=== PATIENT | male | born 1965 | race Caucasian/White ===

== ENCOUNTER 2020-10-05 09:24 | Outpatient (REF) | payer MEDICARE, SELFPAY ==
--- NOTE | ~2020-10-05 | XR_ITS ---
EXAMINATION: XR KNEE, LEFT CLINICAL INFORMATION: Unspecified injury of left lower leg COMPARISON: None TECHNIQUE: Four views of the left knee. FINDINGS: Medial and lateral compartment joint spaces are maintained. There is prepatellar soft tissue swelling, most likely a hematoma in the setting of trauma although bursitis could give this appearance as well. No definite joint effusion. No fracture or dislocation seen. There is smooth asymmetric cortical thickening of the proximal tibia. This has nonaggressive features and could represent a healed/ossified nonossifying fibroma. XR/XR knee LT 4V IMPRESSION: Prepatellar soft tissue swelling, most likely a hematoma although bursitis could give this appearance. No acute osseous abnormality.
== END 2020-10-05 09:25 | disposition home or self-care (01) ==
LOC: HO.HMGCX 09:24
PROVIDERS: PCP Internal Medicine; Visit Provider Nurse Practitioner Family
DX: L03.116 Cellulitis of left lower limb (principal); S89.90XA Unspecified injury of unspecified lower leg, initial encounter
CPT/HCPCS: 73564; 87071; 87077; 87186; 87205

== ENCOUNTER 2021-09-04 07:41 | Outpatient (REF) | payer MEDICARE, SELFPAY ==
[2021-09-04 12:13] LABS: Prostate Specific Antigen 0.52 ng/mL (<0.05-4.0)
[2021-09-04 12:17] LABS: Alanine Aminotransferase 21 U/L (0-40); Alkaline Phosphatase 90 U/L (39-117); Anion Gap 14 (12-20); Aspartate Amino Transferase 23 U/L (5-37); Bilirubin Total 0.6 mg/dL (0.0-1.0); Blood Urea Nitrogen 13 mg/dL (9-16); Calcium 9.2 mg/dL (8.4-10.2); Carbon Dioxide 26 mmol/L (22-29); Chloride 107 mmol/L (96-108); Cholesterol 261 mg/dL; Estimated Glomerular Filt Rate > 60; Glucose Fasting 91 mg/dL (60-99); HDL Cholesterol 29 mg/dL; LDL Cholesterol Calculated 188 mg/dl; Potassium 4.4 mmol/L (3.3-5.1); Sodium 143 mmol/L (135-145); Total Protein 7.4 g/dL (6.5-8.0); Triglycerides 223 mg/dL
== END 2021-09-04 07:42 | disposition home or self-care (01) ==
LOC: HO.HMGCLDS 07:41
PROVIDERS: Nurse Practitioner Family; Visit Provider Internal Medicine
DX: Z12.5 Encounter for screening for malignant neoplasm of prostate (principal); Z13.1 Encounter for screening for diabetes mellitus; Z13.220 Encounter for screening for lipoid disorders
CPT/HCPCS: 36415; 80053; 80061; 84153

== ENCOUNTER → 2022-03-13 13:24 | Outpatient (BNVA) | payer MEDICARE, SELFPAY | PROVIDERS: PCP Internal Medicine | DX: R35.0 Frequency of micturition (principal) | CPT/HCPCS: 51798; 99202 ==

== ENCOUNTER 2022-05-13 08:45 | Outpatient (REF) | payer MEDICARE, SELFPAY ==
[2022-05-13 11:27] LABS: MANUAL DIFF FLAG NO
[2022-05-13 11:29] LABS: Basophils Absolute Auto 0.1 X10*3/uL (0.0-0.2); Basophils Percent Auto 0.6 % (0-2); Eosinophils Absolute Auto 0.2 X10*3/uL (0.0-0.4); Eosinophils Percent Auto 3.1 % (0-4); Hematocrit 41.2 % (42.0-52.0); Hemoglobin 14.1 g/dl (14.0-18.0); Imm Gran Abs Auto 0.03 X10*3/uL (0.00-0.03); Imm Gran Pct Auto 0.4 % (0.0-0.4); Lymphocytes Absolute Auto 2.6 X10*3/uL (1.2-4.9); Lymphocytes Percent Auto 33.5 % (20-40); Mean Corpuscular HGB Conc 34.2 g/dl (31.0-36.0); Mean Corpuscular Hemoglobin 29.6 pg (27.0-33.0); Mean Corpuscular Volume 86.4 fL (80.0-98.0); Mean Platelet Volume 11.2 fL (9.4-12.4); Monocytes Absolute Auto 0.6 X10*3/uL (0.1-1.2); Monocytes Percent Auto 7.9 % (2-11); Neutrophils Absolute Auto 4.3 x10*3/uL (2.0-8.3); Neutrophils Percent Auto 54.5 % (45-73); Platelet Count 256 X10*3/uL (160-400); Red Blood Count 4.77 X10*6/uL (4.60-5.80); Red Cell Distribution Width 13.5 % (11.0-16.0); White Blood Count 7.9 X10*3/uL (4.8-10.8)
[2022-05-13 11:45] LABS: Alanine Aminotransferase 22 U/L (0-40); Albumin Level 4.3 g/dL (3.5-5.0); Alkaline Phosphatase 81 U/L (39-117); Anion Gap 15 (12-20); Aspartate Amino Transferase 23 U/L (5-37); Bilirubin Total 0.7 mg/dL (0.0-1.0); Blood Urea Nitrogen 11 mg/dL (9-16); Calcium 9.1 mg/dL (8.4-10.2); Carbon Dioxide 25 mmol/L (22-29); Chloride 104 mmol/L (96-108); Cholesterol 260 mg/dL; Estimated Glomerular Filt Rate > 60; Glucose Fasting 95 mg/dL (60-99); HDL Cholesterol 37 mg/dL; LDL Cholesterol Calculated 176 mg/dl; Potassium 4.2 mmol/L (3.3-5.1); Sodium 140 mmol/L (135-145); Total Protein 7.4 g/dL (6.5-8.0); Triglycerides 239 mg/dL
[2022-05-13 12:06] LABS: TSH reflex Free T4 0.66 uIU/mL (0.32-4.0)
== END 2022-05-13 08:46 | disposition home or self-care (01) ==
LOC: HO.HMGCLDS 08:45
PROVIDERS: PCP Internal Medicine; Visit Provider Nurse Practitioner Family
DX: F41.9 Anxiety disorder, unspecified (principal); I10 Essential (primary) hypertension; E78.00 Pure hypercholesterolemia, unspecified; F32.89 Other specified depressive episodes
CPT/HCPCS: 36415; 80053; 80061; 84443; 85025

== ENCOUNTER 2022-08-13 10:32 | Outpatient (REF) | payer MEDICARE, SELFPAY ==
[2022-08-13 12:41] LABS: Alanine Aminotransferase 47 U/L (0-40); Albumin Level 4.4 g/dL (3.5-5.0); Alkaline Phosphatase 91 U/L (39-117); Anion Gap 11 (12-20); Aspartate Amino Transferase 27 U/L (5-37); Bilirubin Total 0.6 mg/dL (0.0-1.0); Blood Urea Nitrogen 13 mg/dL (9-16); Calcium 9.3 mg/dL (8.4-10.2); Carbon Dioxide 28 mmol/L (22-29); Chloride 104 mmol/L (96-108); Cholesterol 175 mg/dL; Estimated Glomerular Filt Rate > 60; Glucose Fasting 85 mg/dL (60-99); HDL Cholesterol 38 mg/dL; LDL Cholesterol Calculated 112 mg/dl; Potassium 4.3 mmol/L (3.3-5.1); Sodium 139 mmol/L (135-145); TSH reflex Free T4 0.86 uIU/mL (0.32-4.0); Total Protein 7.3 g/dL (6.5-8.0); Triglycerides 125 mg/dL; Vitamin D 25-OH Total 11.5 ng/mL (>30)
[2022-08-19 20:54] LABS: Testosterone, Free 54.5 pg/mL (35.0-155.0); Testosterone, Total 478 ng/dL (250-1100)
== END 2022-08-13 10:33 | disposition home or self-care (01) ==
LOC: HO.HMGCLDS 10:32
PROVIDERS: PCP Internal Medicine; Visit Provider Internal Medicine
DX: R53.83 Other fatigue (principal); R79.89 Other specified abnormal findings of blood chemistry; E55.9 Vitamin D deficiency, unspecified; E78.00 Pure hypercholesterolemia, unspecified
CPT/HCPCS: 36415; 80053; 80061; 82306; 84402; 84403; 84443

== ENCOUNTER 2022-09-09 09:36 | Outpatient (REF) | payer MEDICARE, SELFPAY ==
--- NOTE | ~2022-09-09 | CT_ITS ---
EXAMINATION: CT HEAD WITHOUT CONTRAST CLINICAL INFORMATION: Dizziness and giddiness. COMPARISON: CT head from 11/30/2013. TECHNIQUE: Contiguous axial imaging was performed from the skull base to vertex without intravenous administration of contrast. This CT examination was performed using dose optimization techniques as appropriate, variously including the following: *Automated exposure control. *Adjustment of mA and/or kV according to patient size (this includes techniques or standardized protocols for targeted exams where dose is matched to indication/reason for exam; i.e. extremities or head). *Use of iterative reconstruction technique. DLP: 792 mGy-cm FINDINGS: There is no evidence of acute intracranial hemorrhage or edematous territorial infarction. Rios-white matter differentiation is preserved. There is no abnormal attenuation within the brain parenchyma. The ventricles are normal in morphology and size. No evidence for obstructive hydrocephalus. No abnormal mass effect or midline shift. The cerebellar tonsils are positioned at the level the foramen magnum. No extra-axial fluid collections. No acute soft tissue or osseous abnormalities. Persistent metopic suture. The mastoid air cells and visualized paranasal sinuses are clear. CT/CT head/brain wo IV con IMPRESSION: No evidence of acute intracranial hemorrhage or edematous territorial infarction.
== END 2022-09-09 09:37 | disposition home or self-care (01) ==
LOC: HO.CT 09:36
PROVIDERS: PCP Internal Medicine; Visit Provider Internal Medicine
DX: G43.909 Migraine, unspecified, not intractable, without status migrainosus (principal); R42 Dizziness and giddiness
CPT/HCPCS: 70450

== ENCOUNTER → 2022-09-12 11:32 | Outpatient (BNVA) | payer MEDICARE, SELFPAY | PROVIDERS: PCP Internal Medicine; Visit Provider Nurse Practitioner Family | DX: N40.1 Benign prostatic hyperplasia with lower urinary tract symptoms (principal); R35.0 Frequency of micturition; N13.8 Other obstructive and reflux uropathy; I10 Essential (primary) hypertension; E78.00 Pure hypercholesterolemia, unspecified; E55.9 Vitamin D deficiency, unspecified; Z79.899 Other long term (current) drug therapy | CPT/HCPCS: 51798; 99212 ==

== ENCOUNTER → 2022-10-30 13:27 | Outpatient (BNVA) | payer MEDICARE, SELFPAY | PROVIDERS: PCP Internal Medicine; Visit Provider Nurse Practitioner Family | DX: G43.909 Migraine, unspecified, not intractable, without status migrainosus (principal); R42 Dizziness and giddiness; R55 Syncope and collapse | CPT/HCPCS: 99202 ==

== ENCOUNTER 2022-11-17 09:25 | Outpatient (REF) | payer MEDICARE, SELFPAY ==
[2022-11-17 11:15] LABS: MANUAL DIFF FLAG NO
[2022-11-17 11:50] LABS: Appearance Urine Clear; Color Urine Yellow; Glucose Urine UA Negative (Negative); Leukocyte Esterase Urine Negative (Negative); Nitrite Urine Negative (Negative); PH 7.5 (5.0-9.0); Specific Gravity - Urine 1.015 (1.005-1.025); Urine Blood Negative (Negative); Urine Ketones Negative (Negative); Urine Protein Negative (Neg-Trace)
[2022-11-17 11:55] LABS: Basophils Absolute Auto 0.1 X10*3/uL (0.0-0.2); Basophils Percent Auto 0.9 % (0-2); Eosinophils Absolute Auto 0.3 X10*3/uL (0.0-0.4); Hematocrit 43.3 % (42.0-52.0); Hemoglobin 14.5 g/dl (14.0-18.0); Imm Gran Abs Auto 0.03 X10*3/uL (0.00-0.03); Imm Gran Pct Auto 0.4 % (0.0-0.4); Lymphocytes Absolute Auto 2.3 X10*3/uL (1.2-4.9); Lymphocytes Percent Auto 28.8 % (20-40); Mean Corpuscular HGB Conc 33.5 g/dl (31.0-36.0); Mean Corpuscular Hemoglobin 29.8 pg (27.0-33.0); Mean Corpuscular Volume 89.1 fL (80.0-98.0); Mean Platelet Volume 11.9 fL (9.4-12.4); Monocytes Absolute Auto 0.7 X10*3/uL (0.1-1.2); Monocytes Percent Auto 8.8 % (2-11); Neutrophils Absolute Auto 4.6 x10*3/uL (2.0-8.3); Neutrophils Percent Auto 57.1 % (45-73); Platelet Count 235 X10*3/uL (160-400); Red Blood Count 4.86 X10*6/uL (4.60-5.80); Red Cell Distribution Width 13.4 % (11.0-16.0); White Blood Count 8.1 X10*3/uL (4.8-10.8)
[2022-11-17 12:19] LABS: Alanine Aminotransferase 42 U/L (0-40); Albumin Level 4.3 g/dL (3.5-5.0); Alkaline Phosphatase 80 U/L (39-117); Anion Gap 10 (12-20); Aspartate Amino Transferase 26 U/L (5-37); Bilirubin Total 0.8 mg/dL (0.0-1.0); Blood Urea Nitrogen 14 mg/dL (9-16); Calcium 9.3 mg/dL (8.4-10.2); Carbon Dioxide 29 mmol/L (22-29); Chloride 106 mmol/L (96-108); Cholesterol 161 mg/dL; Estimated Glomerular Filt Rate > 60; Glucose Fasting 91 mg/dL (60-99); HDL Cholesterol 34 mg/dL; LDL Cholesterol Calculated 100 mg/dl; Potassium 4.2 mmol/L (3.3-5.1); Sodium 141 mmol/L (135-145); Total Protein 7.1 g/dL (6.5-8.0); Triglycerides 139 mg/dL
[2022-11-17 12:22] LABS: TSH reflex Free T4 0.63 uIU/mL (0.32-4.0)
[2022-11-17 12:47] LABS: Erythrocyte Sedimentation Rate 8 MM/HR (0-15)
== END 2022-11-17 09:26 | disposition home or self-care (01) ==
LOC: HO.HMGCLDS 09:25
PROVIDERS: PCP Internal Medicine; Visit Provider Internal Medicine
DX: E78.00 Pure hypercholesterolemia, unspecified (principal); E55.9 Vitamin D deficiency, unspecified; R51.9 Headache, unspecified; R30.0 Dysuria; I10 Essential (primary) hypertension
CPT/HCPCS: 36415; 80053; 80061; 81003; 82306; 84443; 85025; 85652

== ENCOUNTER 2022-12-10 09:52 | Outpatient (REF) | payer MEDICARE, SELFPAY ==
--- NOTE | ~2022-12-10 | US_ITS ---
EXAMINATION: US EXTRACRANIAL CAROTID DUPLEX, BILATERAL CLINICAL INFORMATION: Dizziness. COMPARISON: None available. TECHNIQUE: Real-time ultrasound and Doppler techniques (integrating B-mode 2-D vascular images, Doppler spectral analysis and color-flow Doppler imaging) were utilized to interrogate the extracranial carotid arteries, the vertebral arteries and proximal subclavian arteries bilaterally. The degree of stenosis is determined by criteria similar to NASCET. FINDINGS: Right Side: 1. There is no atherosclerotic plaque seen in the bifurcation/proximal ICA region. 2. The common carotid artery PSV proximally is 142 cm/s and distally 89 cm/s. 3. The proximal internal carotid artery velocities are 78 cm/s systolic and 17 cm/s diastolic. 4. The proximal external carotid artery PSV is 103 cm/s. 5. The vertebral artery shows antegrade flow. 6. The subclavian artery waveforms are normal. Left Side: 1. There is mild atherosclerotic plaque seen in the bifurcation/proximal ICA region. 2. The common carotid artery PSV proximally is 85 cm/s and distally 87 cm/s. 3. The proximal internal carotid artery velocities are 104 cm/s systolic and 29 cm/s diastolic. 4. The proximal external carotid artery PSV is 112 cm/s. 5. The vertebral artery shows antegrade flow. 6. The subclavian artery waveforms are normal. US/US carotid duplex BI IMPRESSION: 1. RIGHT: Normal right internal carotid artery without atherosclerotic plaque or hemodynamically significant stenosis. 2. LEFT: Minimal, non-hemodynamically significant stenosis of the proximal left internal carotid artery corresponding to a 0-49% stenosis by velocity criteria.
== END 2022-12-10 09:53 | disposition home or self-care (01) ==
LOC: HO.US 09:52
PROVIDERS: PCP Internal Medicine; Visit Provider Nurse Practitioner Family
DX: R55 Syncope and collapse (principal); R42 Dizziness and giddiness; I10 Essential (primary) hypertension; E78.00 Pure hypercholesterolemia, unspecified
CPT/HCPCS: 93005; 93880; 99202

== ENCOUNTER → 2022-12-24 09:44 | Outpatient (REF) | payer MEDICARE, SELFPAY ==
--- NOTE | 2022-12-24 09:47 | CA_ITS ---
Transthoracic Echocardiogram Patient (Last, First, Middle): Moe Gomse P Gender: Male Date of : 1965 Age: 57 Procedure Date: 12/24/2022 Procedure Type: Transthoracic Echocardiogram Location: OP Height: 182.88 cm Weight: 104.33 kg BSA: 2.26 m2 Heart Rate: bpm BP: 128 / 80 mmHg Statistics Tutor: Referring MD: Phoenix Emerson MD Symptoms: R55 - Syncope and collapse Study Quality: Fair ECG Rhythm: Sinus Conclusions: - The left ventricular systolic function is normal. The calculated ejection fraction is 63% by biplane method. - No obvious valvular pathology seen on this study. Findings Left Ventricle Normal left ventricular cavity size. There is normal left ventricular wall thickness. The left ventricular systolic function is normal. The calculated ejection fraction is 63% by biplane method. There is no evidence of regional wall motion abnormalities. Diastolic function is normal for age. LV peak GLS -18.7%. Right Ventricle Normal right ventricular cavity size and systolic function. Atria Both atria are normal in size. Aortic Valve There is a normal trileaflet aortic valve. There is no aortic valve stenosis. There is no aortic valve regurgitation. Mitral Valve The mitral valve appears normal. There is trace mitral valve regurgitation. There is no mitral valve stenosis. Pulmonic Valve The pulmonic valve is likely normal. Tricuspid Valve Normal tricuspid valve structure. There is mild tricuspid valve regurgitation. There is no evidence of pulmonary hypertension. Great Vessels The asc aorta is normal in size. Venous The inferior vena cava is normal in size and collapses greater than 50% with inspiration. Pericardium/Pleural There is no evidence of pericardial effusion. Prior Study Comparison No prior study available for comparison. Recommendations, Care & Conclusions No obvious valvular pathology seen on this study. Measurements 2D Linear Measurements IVSd: 1.01 0.6-0.9/0.6-1.0 cm LVIDd: 4.76 3.9-5.3/4.2-5.9 cm LVIDd Index: 2.11 2.4-3.2/2.2-3.1 cm/m2 LVIDs: 3.15 2.0-3.6 cm LVPWd: 1.04 0.7-1.1 cm Ao Root: 3.50 2.1-3.5 cm LA Diam: 4.30 2.7-3.8/3.0-4.0 cm LAIDs Index: 1.90 1.5-2.3 cm/m2 LV Mass: 216.29 67-162/88-224 g LV Mass Index: 95.70 43-95/49-115 g/m2 LVOT Diam: 2.20 3.0+(-)1.3 cm 2D Systolic Function EF 4C: 57.40 >55% EF 2C: 66.90 >55% EF BiP: 62.50 >55% Mitral Valve MV Pk E: 0.78 MV PK A: 0.58 MV Decel Time: 277.00 E/A: 1.40 E'Lateral: 12.00 E'Medial: 9.68 E/E' Med: 8.00 E/E' Lat: 6.50 PHT: 81.00 MVA PHT: 2.72 Decel [place]: 2.81 Aortic Valve AoV Pk Alexis: 1.36 AoV Mn Alexis: 0.85 AoV VTI: 0.34 AoV Pk Grad: 7.00 Aov Mn Grad: 4.00 SIMA Cont.VTI: 2.95 LVOT LVOT Pk Alexis: 1.06 LVOT Mn Alexis: 0.68 LVOT VTI: 0.26 LVOT Pk Grad: 4.00 LVOT Mn Grad: 2.00 LVOT Diam: 2.20 LVOT Area: 3.80 Diastolic Function MV Pk E: 0.78 MV Pk A: 0.58 E/A: 1.40 E'Medial: 9.68 E/E' Med: 8.00 E' Laterial: 12.00 E/E' Lat: 6.50 Right Ventricle TAPSE (mm): 25.00 TVS' Alexis: 11.00 Tricuspid Valve TR Pk Alexis: 2.23 TR Pk Grad: 20.00 RA Press: 3.00 RVSP: 23.00 Great Vessels Aorta Ao Root-2D: 3.50 2.0-3.7 cm Ao Asc: 3.40 2.1-3.4 cm Pulmonary Valve PV Pk Alexis: 1.28 Peak PV Grad: 7.00 Updated in Other Vendor System with Status of Final Eyal Latham MD electronically signed on 12/25/2022 10:22:25 AM with status of Final
--- NOTE | 2022-12-24 09:47 | HM_ITS ---
* Total monitoring time 3 days. * Underlying rhythm is sinus. Average ventricular rate 63/Min. Range 40 to 142/Min. * Very rare supraventricular ectopy. Minimal burden. * Very rare ventricular ectopy. Minimal burden. * No significant pauses or AV blocks. * Weakness, ' tunneling', head pressure, weak legs and other symptoms in diary correlate with sinus rhythm. MTDD
== END ==
LOC: HO.CARD 09:44
PROVIDERS: PCP Internal Medicine; Visit Provider Internal Medicine Cardiovascular Disease
DX: R55 Syncope and collapse (principal)
CPT/HCPCS: 93242; 93306; 93356

== ENCOUNTER → 2023-01-15 11:18 | Outpatient (BNVA) | payer MEDICARE, SELFPAY | PROVIDERS: PCP Internal Medicine; Visit Provider Nurse Practitioner Family | DX: R00.1 Bradycardia, unspecified (principal); I95.1 Orthostatic hypotension; Z79.899 Other long term (current) drug therapy | CPT/HCPCS: 99212 ==

== ENCOUNTER 2023-02-02 09:33 | Outpatient (REF) | payer MEDICARE, SELFPAY ==
[2023-02-02 11:06] LABS: MANUAL DIFF FLAG NO
[2023-02-02 11:20] LABS: Basophils Percent Auto 0.5 % (0-2); Eosinophils Absolute Auto 0.3 X10*3/uL (0.0-0.4); Eosinophils Percent Auto 3.3 % (0-4); Hematocrit 44.9 % (42.0-52.0); Hemoglobin 14.6 g/dl (14.0-18.0); Imm Gran Abs Auto 0.03 X10*3/uL (0.00-0.03); Imm Gran Pct Auto 0.4 % (0.0-0.4); Lymphocytes Absolute Auto 2.5 X10*3/uL (1.2-4.9); Lymphocytes Percent Auto 28.9 % (20-40); Mean Corpuscular HGB Conc 32.5 g/dl (31.0-36.0); Mean Corpuscular Hemoglobin 29.9 pg (27.0-33.0); Mean Corpuscular Volume 91.8 fL (80.0-98.0); Mean Platelet Volume 11.5 fL (9.4-12.4); Monocytes Absolute Auto 0.7 X10*3/uL (0.1-1.2); Monocytes Percent Auto 8.4 % (2-11); Neutrophils Percent Auto 58.5 % (45-73); Platelet Count 230 X10*3/uL (160-400); Red Blood Count 4.89 X10*6/uL (4.60-5.80); Red Cell Distribution Width 13.8 % (11.0-16.0); White Blood Count 8.5 X10*3/uL (4.8-10.8)
[2023-02-02 11:57] LABS: Alanine Aminotransferase 39 U/L (0-40); Albumin Level 4.2 g/dL (3.5-5.0); Alkaline Phosphatase 83 U/L (39-117); Anion Gap 15 (12-20); Aspartate Amino Transferase 25 U/L (5-37); Bilirubin Total 0.8 mg/dL (0.0-1.0); Blood Urea Nitrogen 12 mg/dL (9-16); Calcium 9.3 mg/dL (8.4-10.2); Carbon Dioxide 24 mmol/L (22-29); Chloride 106 mmol/L (96-108); Cholesterol 170 mg/dL; Estimated Glomerular Filt Rate > 60; Glucose Fasting 84 mg/dL (60-99); HDL Cholesterol 38 mg/dL; LDL Cholesterol Calculated 101 mg/dl; Potassium 4.2 mmol/L (3.3-5.1); Sodium 141 mmol/L (135-145); Total Protein 7.4 g/dL (6.5-8.0); Triglycerides 158 mg/dL
== END 2023-02-02 09:34 | disposition home or self-care (01) ==
LOC: HO.HMGCLDS 09:33
PROVIDERS: PCP Internal Medicine; Visit Provider Internal Medicine
DX: I10 Essential (primary) hypertension (principal); E78.00 Pure hypercholesterolemia, unspecified
CPT/HCPCS: 36415; 80053; 80061; 85025

== ENCOUNTER 2023-02-18 14:06 | Outpatient (REF) | payer MEDICARE, SELFPAY | END 2023-02-18 14:07 | disposition home or self-care (01) | LOC: HO.HMGCLDS 14:06 | PROVIDERS: PCP Internal Medicine; Visit Provider Internal Medicine | DX: R42 Dizziness and giddiness (principal) | CPT/HCPCS: 36415; 82533 ==

== ENCOUNTER 2023-03-06 10:32 | Outpatient (REF) | payer MEDICARE, SELFPAY ==
[2023-03-06 15:35] LABS: Prostate Specific Antigen 1.52 ng/mL (<0.05-4.0)
== END 2023-03-06 10:33 | disposition home or self-care (01) ==
LOC: HO.HMGCLDS 10:32
PROVIDERS: PCP Internal Medicine; Visit Provider Nurse Practitioner Family
DX: N40.1 Benign prostatic hyperplasia with lower urinary tract symptoms (principal); R35.0 Frequency of micturition; Z12.5 Encounter for screening for malignant neoplasm of prostate
CPT/HCPCS: 36415; 84153

== ENCOUNTER 2023-03-19 09:48 | Outpatient (AMB) | payer MEDICARE, SELFPAY ==
[2023-03-19 09:51] VITALS: BP 120/74; PULSE 74; BMI 29.6
--- NOTE | 2023-03-19 09:51 | MHC.OFFVIS ---
Intake Vital Signs 03/19/23 09:51 Height 6 ft Weight 218 lb 4.122 oz BMI 29.6 BP 120/74 Blood Pressure Location Lt brachial Position Sitting Pulse 74 Intake Visit Reasons: follow up after testing per NS Intake Note: Follow-up after echo and holter feeling good Sustainability Officer Required: No Allergies azithromycin [AZITHROMYCIN] Allergy (Unknown, Verified 02/18/23 13:18) HEARTBURN, stomach upset ciprofloxacin [From CIPRO] Allergy (Unknown, Verified 02/18/23 13:18) STOMACH UPSET Medication List - Last Reconciled 03/19/23 by Phoenix Emerson MD atorvastatin 10 mg PO BEDTIME 90 days baclofen 20 mg PO TID PRN bupropion HCl 300 mg PO QAM cholecalciferol (vitamin D3) 50 mcg PO DAILY 90 days diazepam 5 mg PO DAILY PRN duloxetine 60 mg PO DAILY gabapentin 1,600 mg PO BID hydroxyzine HCl 25 mg PO QID PRN losartan 25 mg PO .supper tamsulosin (Flomax) 0.8 mg (2 x 0.4 mg) PO DAILY 90 days vitamin B complex 1 tab PO DAILY HPI HPI Comments History of Present Illness Details Moe comes for follow-up. Holter monitor shows no significant bradycardia or pauses that would benefit from pacing. Echocardiogram shows normal structure of the heart. He had a tilt-table test, results of this are not available to me. His losartan as down to 25 mg daily. Continues to have symptoms of lightheadedness. Denies any syncopal episodes. [facility] Medical History Benign essential hypertension Benign prostatic hyperplasia with urinary frequency Cellulitis of knee, left Knee injury Lumbar degenerative disc disease Obesity (BMI 30-39.9) Overweight (BMI 25.0-29.9) Pure hypercholesterolemia Vitamin D deficiency Surgical History History of colonoscopy History of surgery History of surgery Family History Mother Arthritis Acute cataract Glaucoma Father Heart disease Other Substance use disorder Social History Housing: House Alcohol intake: former Patient Tobacco Use Status: Former Tobacco user e-Cigarette/Vaping Use: Never Used Second Hand Smoke Exposure: No service: No Current occupational status: disabled Cognitive needs: No Hearing needs: No Vision needs: Yes (glasses) Review of Systems Const Denies chills, Denies fatigue, Denies fever(s), Denies frequent falls, Denies weakness, Denies weight gain and Denies weight loss ENT Denies dizziness Card Denies chest pain, Denies leg edema, Denies lightheadedness, Denies palpitations, Denies dyspnea, Denies dyspnea on exertion, Denies orthopnea and Denies other (loss of consciousness) Resp Denies cough, Denies dyspnea and Denies dyspnea on exertion GI Denies hematochezia and Denies change in stool character Musc Denies abnormal gait, Denies muscle weakness, Denies numbness, Denies radiating pain into limb and Denies tingling Neuro Denies Abnormal speech present, Denies abnormal gait, Denies dizziness, Denies frequent falls, Denies numbness, Denies tingling and Denies weakness Endo Denies fatigue and Denies palpitations Physical Exam Vital Signs: Last Vital Signs Pulse 74 03/19/23 09:51 BP 120/74 03/19/23 09:51 BMI result Body Mass Index 29.6 Const General: cooperative, comfortable, no acute distress, alert and awake Nutritional Appearance: overweight Orientation/consciousness: patient oriented x3 Limitations: no limitations HEENT Head: Yes normocephalic and Yes atraumatic Neck Neck: Yes trachea midline, Yes supple and Yes no JVD Resp Effort & Inspection: normal respiratory effort Auscultation: clear to auscultation bilaterally Cardio Jugular venous distension: no JVD Rate: regular rate Rhythm: regular rhythm Heart sounds: S1 normal heart sound present, S2 normal heart sound present, no click, no gallops, no murmurs and no rubs GI Auscultation: normal bowel sounds Skin General skin exam: no rashes or lesions noted Neuro General: patient oriented x3 and no focal motor deficits Speech: No Abnormal speech present Extrem General: Yes no clubbing, cyanosis or edema Assessment & Plan Assessment & Plan (1) Near syncope: Code(s): R55 - Syncope and collapse Plan: Patient with prior history of near-syncope with no significant bradycardia that would benefit from pacing therapy and normal structure of the heart. He continues to have symptoms. I would at this point time completely discontinue losartan therapy. Advised to monitor blood pressure but maintain a written log to help with management. Advised to avoid significant salt loading. Advised to increase his fluid intake to 64 oz. A lot of his medications can cause orthostatic hypotension and if possible see if these could be reduced or changed. At this point time no further cardiac workup is indicated. (2) Carotid atherosclerosis: Code(s): I65.29 - Occlusion and stenosis of unspecified carotid artery Plan: Mild carotid atherosclerosis. Needs aggressive risk factor modification. Consider low-dose aspirin therapy. I would also obtain a lipid panel target goal LDL less than 70 mg/dL with high-intensity statin therapy. Aggressive control blood pressure as above. Target goal blood pressure less than 130/84. This was discussed with the patient. Continue to participate in heart healthy lifestyle. Advised him to follow up these results with your office. Follow-up carotid duplex in 2 years. Will follow up in the clinic if need be. Thank you for allowing me to partake in his care Medications: Discontinued losartan Discontinued Reason: Doctor's Order 25 mg PO .supper 30 tabs 5RF R55 - Syncope and collapse Coding Level of Care Code Est Pt Level 4 (92436) Diagnoses Near syncope R55 Carotid atherosclerosis I65.29
== END 2023-03-19 10:34 | disposition home or self-care (01) ==
PROVIDERS: PCP Internal Medicine; Referring Provider Internal Medicine; Visit Provider Internal Medicine Cardiovascular Disease
DX: R55 Syncope and collapse (principal); I65.29 Occlusion and stenosis of unspecified carotid artery
CPT/HCPCS: 99214

== ENCOUNTER → 2023-03-19 09:48 | Outpatient (BNVA) | payer MEDICARE, SELFPAY | PROVIDERS: PCP Internal Medicine; Referring Provider Internal Medicine; Visit Provider Internal Medicine Cardiovascular Disease | DX: I65.29 Occlusion and stenosis of unspecified carotid artery (principal); R55 Syncope and collapse | CPT/HCPCS: 99212 ==

== ENCOUNTER 2023-04-01 12:02 | Outpatient (AMB) | payer MEDICARE, SELFPAY ==
--- NOTE | 2023-04-01 12:22 | MHC.OFFVIS ---
Intake Intake Visit Reasons: 6m follow up/PVR/labs(set) Intake Note: Patient is present for follow up BPH/labs (psa 1.52) Urology Medication: Flomax Blood Thinner: none PVR: 79ml's Machine Operator Packaging Required: No Accompanied by: Self / Same As Patient Allergies azithromycin [AZITHROMYCIN] Allergy (Unknown, Verified 04/01/23 20:43) HEARTBURN, stomach upset ciprofloxacin [From CIPRO] Allergy (Unknown, Verified 04/01/23 20:43) STOMACH UPSET Medication List - Last Reconciled 04/01/23 by MARIANNE Romero baclofen 20 mg PO TID PRN bupropion HCl 300 mg PO QAM cholecalciferol (vitamin D3) 50 mcg PO DAILY 90 days diazepam 5 mg PO DAILY PRN duloxetine 60 mg PO DAILY gabapentin 1,600 mg PO BID hydroxyzine HCl 25 mg PO QID PRN vitamin B complex 1 tab PO DAILY HPI HPI Comments History of Present Illness Details Moe is a pleasant 57-year-old male patient of Dr. Villegas. He has a past medical history of lumbar degenerative disc disease, hypercholesteremia, and vitamin-D deficiency. Patient presents to the office today for follow-up of his benign prostatic hyperplasia. When asked patient reports to be doing well. Patient reports compliance of Flomax 0.8 mg daily. Of note, patient was seen approximately 6 months ago at which time finasteride was increased from 1 capsule per day to 2 as patient was reporting urinary urgency and frequency despite 0.4 mg of Flomax daily. When asked patient reports continuation of lower urinary tract symptoms. In office urinalysis results reviewed with the patient today. PVR 79ml's. Discussed at length potential causes of incomplete bladder emptying as well as well as affects of incomplete bladder emptying. Discussed obtaining retroperitoneal ultrasound for further assessment evaluation. Discuss trial of terazosin 5 mg daily. Patient otherwise denies hematuria, flank pain, incontinence, and or dysuria. PSAs are as follows 09/07--0.5, 03/08--1.5 Testosterone 09/07--478 Patient otherwise denies any other issues or concerns at this time. [facility] Medical History Benign essential hypertension Benign prostatic hyperplasia with urinary frequency Cellulitis of knee, left Knee injury Lumbar degenerative disc disease Obesity (BMI 30-39.9) Overweight (BMI 25.0-29.9) Pure hypercholesterolemia Vitamin D deficiency Surgical History History of colonoscopy History of surgery History of surgery Family History Mother Arthritis Acute cataract Glaucoma Father Heart disease Other Substance use disorder Social History Housing: House Alcohol intake: former Patient Tobacco Use Status: Former Tobacco user e-Cigarette/Vaping Use: Never Used Second Hand Smoke Exposure: No service: No Current occupational status: disabled Cognitive needs: No Hearing needs: No Vision needs: Yes (glasses) Review of Systems Const All systems reviewed & are unremarkable except as noted in HPI and below Reports no additional complaints Eyes Reports no additional complaints ENT Reports no additional complaints Card Reports no additional complaints Resp Reports no additional complaints GI Reports no additional complaints Reports as per HPI Musc Reports no additional complaints Neuro Reports no additional complaints Psych Reports no additional complaints Endo Reports no additional complaints Hiram/Lymph Reports no additional complaints Aller/Immun Reports no additional complaints Physical Exam Const General: cooperative, healthy appearing, comfortable, no acute distress, well developed, alert and awake Orientation/consciousness: patient oriented x3 Limitations: no limitations HEENT Head: Yes normal to inspection, Yes normocephalic and Yes atraumatic Ears: hearing grossly normal bilaterally General nose exam: Normal external nose present Eyes General: appearance normal, both eyes and all related structures Neck Neck: Yes normal visual inspection and Yes trachea midline Chest Chest palpation & inspection: normal inspection of the chest Resp Effort & Inspection: normal respiratory effort and able to speak in complete sentences Cardio Rate: regular rate GI Inspection: Yes normal to inspection General: Yes no CVA tenderness Back/Spine/Pelvis Back: no CVA tenderness Neuro General: patient oriented x3 Extrem General: Yes normal to inspection Psych Appearance: grossly normal and well kempt Mental Status: mental status grossly normal Speech and movement: Normal speech and movement present and Clear speech present Affect: normal affect Attitude: cooperative Thought process: Normal thought process present Thought content: Normal thought content present Insight: Good insight present (Psych) Judgement: Good judgement present (Psych) Office Procedures Post Void Residual Post Residual Void Post Void Residual (PVR): 79 [id number] Void Residual by ultrasound Results AMB Urinalysis, Automated UA Leukoctes 0 Rochelle/uL Last Edit by Tyshawn Sotomayor on 04/01/23 12:25 UA Nitrite Last Edit by Tyshawn Sotomayor on 04/01/23 12:25 UA Urobilinogen 0.2 mg/dL Last Edit by Tyshawn Sotomayor on 04/01/23 12:25 UA Protein mg/dL Last Edit by Tyshawn Sotomayor on 04/01/23 12:25 UA pH 0 Last Edit by Tyshawn Sotomayor on 04/01/23 12:25 UA Blood 0 Chang/uL Last Edit by HeyCrowdtess on 04/01/23 12:25 UA Specific [place] 1.015 Last Edit by Tyshawn Sotomayor on 04/01/23 12:25 UA Ketone Last Edit by Tyshawn Sotomayor on 04/01/23 12:25 UA Bilirubin 0 mg/dL Last Edit by PutPlaceeloy Sotomayor on 04/01/23 12:25 UA Glucose 0 mg/dL Last Edit by Arktis Radiation Detectorsfang Sotomayor on 04/01/23 12:25 Results Reviewed Results Reviewed: Laboratory Last Values Urine pH (Auto) 0 04/01/23 12:24 Specific [place] (Auto) 1.015 04/01/23 12:24 Glucose (UA)(Auto) 0 mg/dL 04/01/23 12:24 Urine Blood (Auto) 0 Chang/uL 04/01/23 12:24 Urine Bilirubin (Auto) 0 mg/dL 04/01/23 12:24 Urine Urobilinogen (Auto) 0.2 mg/dL 04/01/23 12:24 Leukocyte Esterase (Auto) 0 Rochelle/uL 04/01/23 12:24 Assessment & Plan Assessment & Plan (1) Benign prostatic hyperplasia with urinary frequency: Code(s): N40.1 - Benign prostatic hyperplasia with lower urinary tract symptoms; R35.0 - Frequency of micturition (2) Urinary frequency: Code(s): R35.0 - Frequency of micturition Plan In office urinalysis results reviewed with the patient today; as noted above. PVR 79 mL. Stop Flomax 0.8 mg Start terazosin 5 mg at bedtime as discussed and prescribed. Discussed obtaining retroperitoneal ultrasound for further assessment evaluation however patient declines at this time as he reports increase in deductible and copays Discussed near future in office cystoscopy if symptoms persist and/or worsen. Discussed bladder triggers/irritants. Recent PSA results reviewed with the patient today; as noted above. Follow-up in 6 weeks with PVR; or sooner with any issues, concerns, and or questions. Orders: Orders AMB Urinalysis Automated Today Z13.9 - Encounter for screening, unspecified AMB Post Void Residual by ultrasound Today R35.0 - Frequency of micturition Medications: New terazosin 5 mg PO BEDTIME 30 days 30 caps 1RF N40.1 - Benign prostatic hyperplasia with lower urinary tract symptoms, R35.0 - Frequency of micturition Patient Instructions: The patient had an opportunity to ask questions regarding the treatment plan. All questions were answered. Physical exam, labs, and imaging were discussed and reviewed in detail. As well as risks, benefits, and discussion of treatment choices. No major barriers to understanding were identified. The patient expressed understanding and agreement with the above treatment plan. The patient was made aware they should contact our office by phone for worsening of their current condition, the appearance of new symptoms, or with any questions or concerns. Compliance is encouraged with any medications and follow up testing that is ordered. It is a privilege to be allowed the opportunity to participate in? your urological care.? Again, if you have any questions or concerns If you have any questions or concerns please do not hesitate to contact me. The office is [phone]. This note is constructed using voice recognition software. While every effort has been made to ensure accuracy senior peoplesoft developer errors may have been included. Yours sincerely, MARIANNE Romero Coding Level of Care Code Est Pt Level 4 (08037) Diagnoses Benign prostatic hyperplasia with urinary frequency N40.1; R35.0 Urinary frequency R35.0 CPT Codes Post Residual Void - PVR CPT Code: [id number] Void Residual by ultrasound ([id number])
== END 2023-04-01 12:45 | disposition home or self-care (01) ==
PROVIDERS: Visit Provider Nurse Practitioner Family
DX: N40.1 Benign prostatic hyperplasia with lower urinary tract symptoms (principal); R35.0 Frequency of micturition
CPT/HCPCS: 99214

== ENCOUNTER → 2023-04-01 12:02 | Outpatient (BNVA) | payer MEDICARE, SELFPAY | PROVIDERS: Visit Provider Nurse Practitioner Family | DX: N40.1 Benign prostatic hyperplasia with lower urinary tract symptoms (principal); N13.8 Other obstructive and reflux uropathy; R35.0 Frequency of micturition | CPT/HCPCS: 51798; 81003; 99212 ==

== ENCOUNTER 2023-04-30 14:27 | Outpatient (AMB) | payer MEDICARE, SELFPAY ==
--- NOTE | 2023-04-30 14:30 | A.OFFVIS_ITS ---
Intake Vital Signs 04/30/23 14:32 Height 6 ft Weight 211 lb 8 oz BMI 28.7 BP 118/78 Blood Pressure Location Rt brachial Position Sitting Pulse 71 Pulse Source Pulse Oximeter Pulse Oximetry (%) 97 Oxygen Delivery Method Room Air Intake Visit Reasons: 3m follow up - Confirmed Intake Note: Patient presents for 3 month follow up. Patient states no concerns today, Im getting better. Allergies azithromycin [AZITHROMYCIN] Allergy (Unknown, Verified 04/30/23 14:33) HEARTBURN, stomach upset ciprofloxacin [From CIPRO] Allergy (Unknown, Verified 04/30/23 14:33) STOMACH UPSET Medication List - Last Reconciled 04/30/23 by VAMSI Choi baclofen 20 mg PO TID PRN bupropion HCl 300 mg PO QAM cholecalciferol (vitamin D3) 50 mcg PO DAILY 90 days diazepam 5 mg PO DAILY PRN duloxetine 60 mg PO DAILY gabapentin 1,600 mg PO BID hydroxyzine HCl 25 mg PO QID PRN tamsulosin 0.8 mg PO DAILY vitamin B complex 1 tab PO DAILY HPI HPI Comments History of Present Illness Details 57-yr-old male presents for f/u visit. Pt denies any significant interval medical changes. Tilt-table results were WNL. Pt has stopped Losartan, per cardiology. Around the same time, he ran out of his statin for a few days, when he noticed that he was feeling better. 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 So he again held the statin, and he again felt better- his base energy level is better, the lightheadedness improved. Urology did try him on Terazosin- but he started feeling less energetic- so he stopped it, and again felt better. Currently, he feels the lightheadedness is 80% better, now just occasionally if he stands up quickly. He notes that he is prone to cramping- especially if more physically active. Taking Liquid IV does seem to help. No recent migraines. [facility] Medical History Benign essential hypertension Benign prostatic hyperplasia with urinary frequency Cellulitis of knee, left Knee injury Lumbar degenerative disc disease Obesity (BMI 30-39.9) Overweight (BMI 25.0-29.9) Pure hypercholesterolemia Vitamin D deficiency Surgical History History of colonoscopy History of surgery History of surgery Family History Mother Arthritis Acute cataract Glaucoma Father Heart disease Other Substance use disorder Social History Housing: House Alcohol intake: former Patient Tobacco Use Status: Former Tobacco user e-Cigarette/Vaping Use: Never Used Second Hand Smoke Exposure: No service: No Current occupational status: disabled Cognitive needs: No Hearing needs: No Vision needs: Yes (glasses) Review of Systems Const All systems reviewed & are unremarkable except as noted in HPI and below Physical Exam Vital Signs: Last Vital Signs Pulse 71 04/30/23 14:32 BP 118/78 04/30/23 14:32 Pulse Ox 97 04/30/23 14:32 Oxygen Delivery Method Room Air 04/30/23 14:32 BMI result Body Mass Index 28.7 Const General: cooperative and no acute distress Orientation/consciousness: patient oriented x3 HEENT Head: Yes normocephalic Resp Effort & Inspection: normal respiratory effort and able to speak in complete sentences Neuro General: patient oriented x3, gait normal and CN's II-XI intact bilaterally Cognition (Neuro): normal cognition Motor exam (neuro): 5/5 motor strength present throughout Psych Appearance: grossly normal Mental Status: mental status grossly normal Speech and movement: Normal speech and movement present Affect: normal affect Attitude: cooperative Thought process: Normal thought process present Thought content: Normal thought content present Insight: Good insight present (Psych) Judgement: Good judgement present (Psych) Results Reviewed Results Reviewed: 01/29/23, [facility], Tilt Table Test INDICATIONS: ?Persistent bradycardia & orthostasis ? OPERATORS: ?Cari Martins NP & Thomas Scherer RN ? DESCRIPTION OF PROCEDURE: ?The pt presented to the cardiac stress lab in a fasting state. ?Identity of the pt was confirmed. ?The procedure was explained to the pt and informed consent was obtained. ?Pt states that he frequently has lightheadedness, especially after bending down or upon standing. ?He states he also has memory loss around the same time. ?He states that he feels pressure in head and behind his eyes during these times. ?The pt states he frequently has these symptoms. ?Pt states he feels well this morning. ? INITIAL VITAL SIGNS IN THE SUPINE POSITION: ?B/P: ?100/53 mmHg ? ? HR: ?54 bpm ?No complaints ? VITAL SIGNS AT 70 DEGREE TILT 2 min? B/P: 105/58 mmHg?HR: ?55 bpm 4 min? Inaccurate reading ? ? ? 62 6 min? 82/56? 60? Head feels 'swimmy'. ?Cuff changed from automatic to manual 8 min? 106/60? 61 ?? 10 min? 104/68? 64?Feet Numb 12 min? 102/70? 64?Feet Heavy 14 min? 114/74? 63 16 min? 106/62? 62?Brief surge in head 18 min? 118/64? 65 20 min? 104/72? 66 22 min? 104/80? 64 24 min? 106/82 ? 66?Pressure in chest 26 min 98/76? 64 28 min? 100/76? 68?A little lightheaded 30 min? 106/82? 64 32 min? 104/74? 66 34 min? 106/80?63 ? POST PROCEDURE VITAL SIGNS: ?B/P: ?104/70 mmHg ? ?HR: ?53 bpm? ? IMPRESSION: ?Heads Up Tilt Table test is NEGATIVE for neurogenic syncope ? COMMENTS: ?Once the pt was put into back into the supine position, he c/o being a little dizzy and head pressure. ?When he sat up, the pt c/o feeling dizzy again and was weaving back and forth, however his B/P and HR remained stable from 110/65 with a HR of 55 to 104/70 with a HR 53. ?Pt felt well on discharge and had stable vital signs. ?No complications. ? Assessment & Plan Assessment & Plan (1) Orthostatic dizziness: Code(s): R42 - Dizziness and giddiness (2) Near syncope: Code(s): R55 - Syncope and collapse (3) Migraine: Code(s): G43.909 - Migraine, unspecified, not intractable, without status migrainosus Qualifiers: Intractability: not intractable Migraine type: unspecified Status migrainosus presence: without status migrainosus Qualified Code(s): G43.909 - Migraine, unspecified, not intractable, without status migrainosus Plan Reviewed tilt-table test- normal. Pt is feeling significantly better off of Atorvastatin and Losartan. Since pt has stopped statin, pt advised to do f/u lipid panel- already ordered by Dr Ta. Encouraged pt to try to optimize diet- increase fruits/vegetables. Continue to change positions slowly and use electrolyte replacement drinks- especially if he plans to be more active. f/u in 6 months or sooner prn. Coding Level of Care Code Est Pt Level 3 (28019) Diagnoses Orthostatic dizziness R42 Near syncope R55 Migraine without status migrainosus, not intractable, unspecified migraine type G43.909 Intractability: not intractable Migraine type: unspecified Status migrainosus presence: without status migrainosus
[2023-04-30 14:32] VITALS: BP 118/78; PULSE 71; O2SAT 97; BMI 28.7
== END 2023-04-30 15:33 | disposition home or self-care (01) ==
PROVIDERS: PCP Internal Medicine; Visit Provider Nurse Practitioner Family
DX: R42 Dizziness and giddiness (principal); R55 Syncope and collapse; G43.909 Migraine, unspecified, not intractable, without status migrainosus
CPT/HCPCS: 99213

== ENCOUNTER → 2023-04-30 14:27 | Outpatient (BNVA) | payer MEDICARE, SELFPAY | PROVIDERS: PCP Internal Medicine; Visit Provider Nurse Practitioner Family | DX: R42 Dizziness and giddiness (principal); R55 Syncope and collapse; G43.909 Migraine, unspecified, not intractable, without status migrainosus | CPT/HCPCS: 99212 ==

== ENCOUNTER 2023-05-13 11:24 | Outpatient (AMB) | payer MEDICARE, SELFPAY ==
--- NOTE | 2023-05-13 11:54 | MHC.OFFVIS ---
Intake Intake Visit Reasons: 6 week follow up/ PVR Intake Note: Patient is Present for PVR Follow Up Urology Medication: Tamsulosin Antibiotic Allergies: Azithromycin, Ciprofloxacin Blood Thinners: None Pharmacy: [facility] PVR: 256 Allergies azithromycin [AZITHROMYCIN] Allergy (Unknown, Verified 05/13/23 11:57) HEARTBURN, stomach upset ciprofloxacin [From CIPRO] Allergy (Unknown, Verified 05/13/23 11:57) STOMACH UPSET Medication List - Last Reconciled 05/13/23 by Moi Tellez MD baclofen 20 mg PO TID PRN bupropion HCl 300 mg PO QAM cholecalciferol (vitamin D3) 50 mcg PO DAILY 90 days diazepam 5 mg PO DAILY PRN duloxetine 60 mg PO DAILY gabapentin 1,600 mg PO BID hydroxyzine HCl 25 mg PO QID PRN tamsulosin 0.8 mg PO DAILY vitamin B complex 1 tab PO DAILY HPI HPI Comments History of Present Illness Details Kiana is a pleasant male. He is a patient of Dr. Villegas. He seen for the following urologic conditions - lower urinary tract symptoms Still with some degree of bladder instability Trial tadalafil 5 mg Lower urinary tract symptoms Progressive, prior PVR 80 cc, somewhat incomplete bladder emptying Did not think terazosin 5 mg more helpful than tamsulosin Imaging not performed PSA 03/08 1.5 Trial tadalafil PFSH Medical History Overweight (BMI 25.0-29.9) Obesity (BMI 30-39.9) Benign prostatic hyperplasia with urinary frequency Lumbar degenerative disc disease Vitamin D deficiency Pure hypercholesterolemia Benign essential hypertension Cellulitis of knee, left Knee injury Surgical History History of colonoscopy History of surgery History of surgery Family History Mother Arthritis Acute cataract Glaucoma Father Heart disease Other Substance use disorder Social History Housing: House Alcohol intake: former Patient Tobacco Use Status: Former Tobacco user e-Cigarette/Vaping Use: Never Used Second Hand Smoke Exposure: No service: No Current occupational status: disabled Cognitive needs: No Hearing needs: No Vision needs: Yes (glasses) Review of Systems Const Denies chills and Denies fever(s) Card Reports no additional complaints and Denies syncope Resp Denies cough GI Denies abdominal pain and Denies heartburn Reports as per HPI and Denies change in libido Neuro Denies syncope Psych Denies change in libido Endo Denies change in libido Physical Exam Const General: cooperative, healthy appearing, comfortable and no acute distress Orientation/consciousness: patient oriented x3 HEENT Face and sinus: Yes normal facial exam Mouth: moist mucous membranes Neck Neck: Yes normal visual inspection, Yes full ROM and Yes trachea midline Chest Chest palpation & inspection: normal inspection of the chest Resp Effort & Inspection: normal respiratory effort, able to speak in complete sentences and no respiratory distress GI Inspection: Yes normal to inspection Back/Spine/Pelvis Cervical Spine: normal cervical lordosis Thoracic/Lumbar Spine: thoracic and lumbar spine normal to inspection Skin General skin exam: no rashes or lesions noted Neuro General: patient oriented x3, gait normal, tone normal and moves all extremities Extrem General: Yes normal to inspection and Yes capillary refill normal Office Procedures Post Void Residual Post Residual Void Post Void Residual (PVR): 256 26717-Oohp Void Residual by ultrasound Assessment & Plan Assessment & Plan (1) Urinary frequency: Code(s): R35.0 - Frequency of micturition Plan Three month follow-up Orders: Orders AMB Urinalysis Automated 05/13/23 Z13.9 - Encounter for screening, unspecified AMB Post Void Residual by ultrasound 05/13/23 N40.1 - Benign prostatic hyperplasia with lower urinary tract symptoms, R35.0 - Frequency of micturition Medications: New tadalafil 5 mg PO DAILY 90 days 90 tabs 1RF bladder stability R35.0 - Frequency of micturition Patient Instructions: Imaging studies, laboratory and physical exam results were discussed and reviewed in detail. No major barriers to patient understanding were identified. An opportunity to ask questions regarding the treatment plan was provided. All questions were answered. The patient expressed understanding and agreement with the above treatment plan. The patient is aware they should contact our office by phone for worsening of their current condition or the appearance of new urologic symptoms. Compliance is encouraged with any medications and followup testing that is ordered. It is a privilege to participate in the urologic care of your patient. If you have any questions or concerns regarding treatment for the above conditions, or other urologic issues, please do not hesitate to contact me. The office telephone contact is [phone]. This note is constructed using voice recognition software. While every effort has been made to ensure accuracy manager retail sales errors may have been included. Yours sincerely, Dr Moi Tellez MD, [facility] - Urology Providers of Expert, Compassionate Care for the Genitourinary System Coding Level of Care Code Est Pt Level 4 (61923) Diagnoses Urinary frequency R35.0 CPT Codes Post Residual Void - PVR CPT Code: 81513-Inxy Void Residual by ultrasound ([id number])
== END 2023-05-13 12:33 | disposition home or self-care (01) ==
PROVIDERS: PCP Internal Medicine; Visit Provider Urology
DX: R35.0 Frequency of micturition (principal)
CPT/HCPCS: 99214

== ENCOUNTER → 2023-05-13 11:24 | Outpatient (BNVA) | payer MEDICARE, SELFPAY | PROVIDERS: PCP Internal Medicine; Visit Provider Urology | DX: N40.1 Benign prostatic hyperplasia with lower urinary tract symptoms (principal); N13.8 Other obstructive and reflux uropathy; R35.0 Frequency of micturition | CPT/HCPCS: 51798; 99212 ==

== ENCOUNTER 2023-05-27 09:04 | Outpatient (REF) | payer MEDICARE, SELFPAY | END 2023-05-27 09:05 | disposition home or self-care (01) | LOC: HO.HMGCLDS 09:04 | PROVIDERS: PCP Internal Medicine; Visit Provider Internal Medicine | DX: I10 Essential (primary) hypertension (principal); E78.00 Pure hypercholesterolemia, unspecified; R30.0 Dysuria; E55.9 Vitamin D deficiency, unspecified; E53.8 Deficiency of other specified B group vitamins | CPT/HCPCS: 36415; 80053; 80061; 81001; 82306; 82607; 82746; 84443; 85025 ==

== ENCOUNTER 2023-06-02 14:38 | Outpatient (AMB) | payer MEDICARE, SELFPAY ==
[2023-06-02 14:46] VITALS: BP 112/72; PULSE 55; O2SAT 96; BMI 28.6
--- NOTE | 2023-06-02 14:46 | MHC.PC.OV ---
Vital Signs 06/02/23 14:46 Height 6 ft Weight 211 lb 4 oz BMI 28.6 BP 112/72 Blood Pressure Location Lt brachial Position Sitting Pulse 55 Pulse Source Pulse Oximeter Pulse Oximetry (%) 96 Oxygen Delivery Method Room Air Intake Visit Reasons: 3 month f/u Finance Specialist Required: No Accompanied by: Self / Same As Patient Allergies azithromycin [AZITHROMYCIN] Allergy (Unknown, Verified 06/02/23 15:20) HEARTBURN, stomach upset ciprofloxacin [From CIPRO] Allergy (Unknown, Verified 06/02/23 15:20) STOMACH UPSET Medication List - Last Reconciled 06/02/23 by Jun Villegas MD baclofen 20 mg PO TID PRN bupropion HCl 300 mg PO QAM ooxxifulzh-guchjmv-szdndxqa 50-325-40 mg 1 cap PO Q4H PRN cholecalciferol (vitamin D3) 50 mcg PO DAILY 90 days diazepam 5 mg PO DAILY PRN duloxetine 60 mg PO DAILY gabapentin 1,600 mg PO BID hydroxyzine HCl 25 mg PO QID PRN mirtazapine (Remeron) 15 mg PO BEDTIME ropinirole 2 mg PO DAILY PRN tamsulosin 0.8 mg PO DAILY vitamin B complex 1 tab PO DAILY Tobacco use date assessed: 06/02/23 Dental Screening Dental Screen Date: 06/02/23 Did you have a dental visit in the last 12 months?: Yes Did you have a dental problem in the last 6 months where you did not have access to dental care?: No Was dental information given to patient?: Patient has dentist HPI 3 month f/u HPI Details Patient comes in today for his follow up visit States that he feels okay He denies any headaches or dizziness Denies any chest pains, no SOB No nausea/vomiting, no abdominal pain No change in bowel habits noted States that he stopped taking his Atorvastatin about 1 to 2 months ago after he noticed that he suddenly felt a lot better when his Rx ran out and he was not taking it for a few days States that his fatigue, achiness and even his dizziness all cleared up in a few days after he stopped taking his Atorvastatin Had his follow up labs done last week - to discuss his results Would also like to get his flu shot today [facility] Medical History Overweight (BMI 25.0-29.9) Obesity (BMI 30-39.9) Benign prostatic hyperplasia with urinary frequency Lumbar degenerative disc disease Vitamin D deficiency Pure hypercholesterolemia Benign essential hypertension Cellulitis of knee, left Knee injury Surgical History History of colonoscopy History of surgery History of surgery Family History Mother Arthritis Acute cataract Glaucoma Father Heart disease Other Substance use disorder Social History Housing: House Alcohol intake: former Patient Tobacco Use Status: Former Tobacco user e-Cigarette/Vaping Use: Never Used Second Hand Smoke Exposure: No service: No Current occupational status: disabled Cognitive needs: No Hearing needs: No Vision needs: Yes (glasses) Questionnaire PHQ-9 Over the last 2 weeks, how often have you been bothered by any of the following problems? 1. Little interest or pleasure in doing things: several days 2. Feeling down, depressed, or hopeless: several days 3. Trouble falling or staying asleep, or sleeping too much: several days 4. Feeling tired or having little energy: more than half the days 5. Poor appetite or overeating: not at all 6. Feeling bad about yourself - or that you are a failure or have let yourself or your family down: several days 7. Trouble concentrating on things, such as reading the newspaper or watching television: not at all 8. Moving or speaking so slowly that other people could have noticed. Or the opposite - being so fidgety or restless that you have been moving around a lot more than usual: not at all 9. Thoughts that you would be better off or of hurting yourself in some way: not at all Total score: 6 Depression Screening Interpretation: Positive Depression Screening Follow-up: Existing condition and In treatment Depression Screening Done: Yes [id number] - PHQ-9 Billing: Yes Source: Developed by Drs. Justin Loya, Jacqueline Araujo, Anastacio Pinto and colleagues, with an educational kg from [employer]. Thrive Questionnaire Date Thrive assessed: 06/02/23 I am a: Patient What is your living situation today?: I have a steady place to live Within the past 12 months, did the food you bought not last and you didn't have the money to get more?: Never true Within the past 12 months, did you worry whether your food would run out before you got money to buy more?: Never true Do you have trouble paying for medicines?: No Do you have trouble getting transportation to medical appointments?: No Do you have trouble paying your heating and electricity bill?: No Do you have trouble taking care of your child, family member or friend?: No Do you have trouble with day-to-day activities such as bathing, preparing meals, shopping, managing finances, etc.?: No Are you currently unemployed and looking for a job?: No Are you interested in more education?: No Please select the resources that you would like help with: None Currently or been in a relationship where the following occur: no concerns reported AUDIT C Alcohol Use Questionnaire (AUDIT-C) 1. How often do you have a drink containing alcohol?: Never 3. How often do you have six or more drinks on one occasion?: Never Total Score: 0 Score Reviewed/Action Taken: Yes REED-7 AMB Questionnaire REED-7 Date REED - 7 assessed: 06/02/23 Feeling nervous, anxious, or on edge: 0 = Not at all Not being able to stop or control worryin = Not at all Worrying too much about different things: 0 = Not at all Trouble relaxin = Not at all Being so restless that it is hard to sit still: 0 = Not at all Becoming easily annoyed or irritable: 0 = Not at all Feeling afraid as if something awful might happen: 0 = Not at all Total REED-7 score (0-4 normal; 5-9 mild; 10-14 moderate; 15-21 severe): 0 Source: Developed by Drs. Justin Loya, Jacqueline Araujo, Anastacio Pinto and colleagues, with an educational kg from [employer]. Review of Systems Const Denies chills, Denies fatigue, Denies fever(s) and Denies headache(s) ENT Denies dysphagia, Denies dizziness, Denies otalgia, Denies headache(s), Denies neck pain, Denies odynophagia and Denies sore throat Card Denies chest pain, Denies palpitations and Denies dyspnea Resp Denies cough and Denies dyspnea GI Denies abdominal pain, Denies constipation, Denies dysphagia, Denies heartburn, Denies diarrhea, Denies nausea, Denies odynophagia and Denies vomiting Denies dysuria, Denies nocturia and Denies urinary frequency Musc Denies neck pain Neuro Denies dizziness and Denies headache(s) Psych Reports depression Endo Denies fatigue and Denies palpitations Physical exam (Primary Care) Vital Signs: Last Vital Signs Pulse 55 06/02/23 14:46 BP 112/72 06/02/23 14:46 Pulse Ox 96 06/02/23 14:46 Oxygen Delivery Method Room Air 06/02/23 14:46 BMI result Body Mass Index 28.6 Tobacco/Smoking Status: Tobacco use Status Tobacco use date assessed 06/02/23 06/02/23 14:54 Patient Tobacco Use Status Former Tobacco user 06/02/23 14:54 e-Cigarette/Vaping Use Never Used 06/02/23 14:54 PHQ-9: PHQ-9 Score PHQ-9: Total score 6 06/02/23 14:54 Depression Screening Interpretation: Positive Depression Screening Follow-up: Existing condition and In treatment Thrive Assessment: Date of Thrive Assessment Date Thrive assessed 06/02/23 06/02/23 14:54 Currently or been in a relationship where the following occur: no concerns reported Const General: no acute distress and alert HENMT Ears: TM's normal bilaterally and EAC's normal Throat: Yes posterior oropharynx normal and Yes tonsils normal (no TP congestion) Neck Neck: Yes no lymphadenopathy and Yes supple Resp Auscultation: clear to auscultation bilaterally, no rales and no wheezes Cardio Rate: regular rate Rhythm: regular rhythm Heart sounds: no murmurs GI Palpation (GI): Soft to palpation and nontender Auscultation: normal bowel sounds Skin Rashes: no rashes Extrem General: Yes no clubbing, cyanosis or edema Office Procedures Flu Questionnaire Does the patient have a severe egg allergy?: No Does the patient have severe life threatening allergies?: No Does the patient have a fever or illness today?: No Has the patient ever had Guillain-Ronda Syndrome?: No Has the patient ever had any past reaction to a flu shot?: No Immunizations flu vacc [id number] 6mos up(PF) 60 mcg(15 mcgx4)/0.5 mL IM syringe Performing Provider: Jun Villegas MD [facility] Administered by: Dolly Gastelum on 06/02/23 15:00 Dose Route Admin Location Dispensed Lot Number Expiration Date NDC Test Evaluator 0.5 mL IM Left Deltoid 0.5 mL [id number] 02/14/24 96023-241-10 [employer] VIS Given Date VIS Provided VIS Publication Date 06/02/23 Single Vaccine 21 Eligibility Eligibility Date Funding Source Not VFC Eligible 06/02/23 Private Results Reviewed Results Reviewed: Laboratory Tests 05/27/23 09:20 WBC 8.9 Hgb 14.6 Hct 43.6 Plt Count 245 Sodium 140 Potassium 4.1 Creatinine 0.90 Estimated GFR > 60 Fasting Glucose 81 Calcium 9.4 Total Bilirubin 0.6 AST 41 H ALT 62 H Triglycerides 142 Cholesterol 259 H LDL Cholesterol, Calc 189 H HDL Cholesterol 42 Vitamin B12 794 25-OH Vitamin D Total 52.1 TSH 0.73 Ur Specific [place] <= 1.005 Urine Protein Negative Urine Glucose (UA) Negative Urine Blood Negative Assessment and Plan Assessment & Plan (1) Orthostatic dizziness: Code(s): R42 - Dizziness and giddiness Plan: Patient felt that his symptoms have improved a lot since he stopped taking his Atorvastatin and Losartan Head CT done back in August 2022 came out negative for acute changes Also had bilateral carotid US done back in November 2022 and Holter monitor and echocardiogram done in December 2022 - all of these came back with no significant abnormalities or findings Tilt table testing done at [facility] a couple of weeks ago came out normal Review of patient's past records show that he has been consistently bradycardic in the past, with EKG done back in 2006 showing bradycardia as the only pertinent finding back then Random cortisol level done back in February 2023 also came back normal Was seen by both neurology and cardiology recently for further evaluation - neurology recommended continuing observation for now as his symptoms appear to have improved significantly with cessation of his Losartan and Rosuvastatin Follow up with neurology as scheduled (2) Pure hypercholesterolemia: Code(s): E78.00 - Pure hypercholesterolemia, unspecified Plan: Results of his labs done last week reviewed and discussed with patient - cautioned that his cholesterol numbers have increased significantly from previous since he stopped taking Atorvastatin a couple of months ago Reinforced low-cholesterol diet Will discontinue Atorvastatin 10 mg QD and start him on a trial of Rosuvastatin 5 mg QD Patient is advised to check back with us right away IF he starts experiencing symptoms similar to what he had with Atorvastatin; discussed that we will have to keep trying until we find a statin that does not bother him OR he exhausts all available options Will recheck his labs and fasting lipids in 3 months for follow-up (3) Benign essential hypertension: Code(s): I10 - Essential (primary) hypertension Plan: Reinforced low sodium diet - goal is systolic BP of 120 mm or less Was on Losartan for which he was instructed to take 100 mg alternating with 50 mg every other day but he ultimately stopped taking this a couple of months ago as he felt that the medication was contributing to his symptoms of fatigue, recurrent dizziness and weakness States that all of these improved upon cessation of his Losartan Patient is instructed to continue monitoring his blood pressure regularly for now (4) Migraine: Code(s): G43.909 - Migraine, unspecified, not intractable, without status migrainosus Qualifiers: Migraine type: unspecified Status migrainosus presence: without status migrainosus Intractability: not intractable Qualified Code(s): G43.909 - Migraine, unspecified, not intractable, without status migrainosus Plan: Reinforced avoidance of migraine triggers Continue Fioricet 50-325-40 mg PRN Follow up with neurology as scheduled (5) Elevated LFTs: Code(s): R79.89 - Other specified abnormal findings of blood chemistry Plan: Advised that his LFTs have increased significantly from previous on his recent labs, likely due to the significant rise in his cholesterol numbers recently Reassured that this should improve with correction of his cholesterol numbers and with weight loss Will recheck his LFTs in 3 months for follow up (6) Vitamin D deficiency: Code(s): E55.9 - Vitamin D deficiency, unspecified Plan: Continue Vitamin D3 2000 units QD (7) Lumbar degenerative disc disease: Code(s): M51.36 - Other intervertebral disc degeneration, lumbar region Plan: Lumbar spine MRI done back on 07/06/2018 revealed (+) lumbar spondylosis that is essentially unchanged from his findings on 10/02/2017 - there were left foraminal disc protrusions abutting the exiting left nerve roots along L3 to S1 Reinforced activity and weight-lifting restrictions States that he has been to pain management in the past; will refer back to pain management if needed Continue Baclofen 20 mg TID PRN and Duloxetine 60 mg QD Was on Gabapentin 800 mg TID but this was cut back to 800 mg BID due to his recurrent orthostasis/dizziness, which did not make any difference and he is now back on 1600 mg BID (8) Benign prostatic hyperplasia with urinary frequency: Code(s): N40.1 - Benign prostatic hyperplasia with lower urinary tract symptoms; R35.0 - Frequency of micturition Plan: Continue Tamsulosin 0.4 mg Q HS Follow up with urology as scheduled (9) Insomnia: Code(s): G47.00 - Insomnia, unspecified Qualifiers: Insomnia type: unspecified Qualified Code(s): G47.00 - Insomnia, unspecified Plan: Sleep hygiene reinforced Current Rx, including Diazepam, help with his sleep at night (10) Anxiety: Code(s): F41.9 - Anxiety disorder, unspecified Plan: Continue Hydroxyzine 25 mg TID PRN and Diazepam 5 mg QD PRN Is also on Bupropion 300 mg Q AM Follow up with psychiatry as scheduled (11) Depression: Code(s): F32.A - Depression, unspecified Qualifiers: Depression Type: major depressive disorder Major depression recurrence: recurrent Active/Remission status: currently active Major depression episode severity: unspecified Qualified Code(s): F33.9 - Major depressive disorder, recurrent, unspecified Plan: Continue Bupropion 300 mg Q AM Follow up with psychiatry as scheduled (12) Overweight (BMI 25.0-29.9): Code(s): E66.3 - Overweight Plan: Reinforced diet/exercise as tolerated/lose weight Plan Per request, flu vaccine given today Follow up in 3 months Orders: Orders Complete Blood Count Auto Diff 3 Months I10 - Essential (primary) hypertension TSH reflex Free T4 3 Months E78.00 - Pure hypercholesterolemia, unspecified UA CC w/rflx Micro + Cult 3 Months R30.0 - Dysuria Vitamin D 25-OH Total 3 Months E55.9 - Vitamin D deficiency, unspecified Influenza [id number] Immunization Today Z23 - Encounter for immunization Comprehensive [place]. Panel Fast 3 Months E78.00 - Pure hypercholesterolemia, unspecified Lipid Panel 3 Months E78.00 - Pure hypercholesterolemia, unspecified Medications: New rosuvastatin 5 mg PO DAILY 30 tabs 2RF 30 days Coding Level of Care Code Est Pt Level 4 (44891) Diagnoses Orthostatic dizziness R42 Pure hypercholesterolemia E78.00 Benign essential hypertension I10 Migraine without status migrainosus, not intractable, unspecified migraine type G43.909 Migraine type: unspecified Status migrainosus presence: without status migrainosus Intractability: not intractable Elevated LFTs R79.89 Vitamin D deficiency E55.9 Lumbar degenerative disc disease M51.36 Benign prostatic hyperplasia with urinary frequency N40.1; R35.0 Insomnia, unspecified type G47.00 Insomnia type: unspecified Anxiety F41.9 Episode of recurrent major depressive disorder, unspecified depression episode severity F33.9 Depression Type: major depressive disorder Major depression recurrence: recurrent Active/Remission status: currently active Major depression episode severity: unspecified Overweight (BMI 25.0-29.9) E66.3
== END 2023-06-02 15:34 | disposition home or self-care (01) ==
PROVIDERS: PCP Internal Medicine; Visit Provider Internal Medicine
DX: Z23 Encounter for immunization (principal)
CPT/HCPCS: 90471; 90686; 99214

== ENCOUNTER 2023-08-27 11:42 | Outpatient (AMB) | payer MEDICARE, SELFPAY ==
--- NOTE | 2023-08-27 12:04 | MHC.OFFVIS ---
Intake Intake Visit Reasons: 3m follow up/PVR Intake Note: Patient is Present for Follow Up Urology Medication:Tamsulosin Antibiotic Allergies: Cipro, Azithromycin Blood Thinners: None PVR: 21 Allergies azithromycin [AZITHROMYCIN] Allergy (Unknown, Verified 06/02/23 15:20) HEARTBURN, stomach upset ciprofloxacin [From CIPRO] Allergy (Unknown, Verified 06/02/23 15:20) STOMACH UPSET HPI HPI Comments History of Present Illness Details Kiana is a pleasant male. He is a patient of Dr. Villegas. He seen for the following urologic conditions - lower urinary tract symptoms Still with some degree of bladder instability Trial tadalafil 5 mg Did not work well Can trial oxybutynin 5 mg Lower urinary tract symptoms Progressive, prior PVR 80 cc, somewhat incomplete bladder emptying Did not think terazosin 5 mg more helpful than tamsulosin Imaging not performed PSA 03/08 1.5 Prior medications tadalafil PFSH Medical History Overweight (BMI 25.0-29.9) Obesity (BMI 30-39.9) Benign prostatic hyperplasia with urinary frequency Lumbar degenerative disc disease Vitamin D deficiency Pure hypercholesterolemia Benign essential hypertension Cellulitis of knee, left Knee injury Surgical History History of colonoscopy History of surgery History of surgery Family History Mother Arthritis Acute cataract Glaucoma Father Heart disease Other Substance use disorder Social History Housing: House Alcohol intake: former Patient Tobacco Use Status: Former Tobacco user e-Cigarette/Vaping Use: Never Used Second Hand Smoke Exposure: No service: No Current occupational status: disabled Cognitive needs: No Hearing needs: No Vision needs: Yes (glasses) Review of Systems Const Denies chills and Denies fever(s) Card Reports no additional complaints and Denies syncope Resp Denies cough GI Denies abdominal pain and Denies heartburn Reports as per HPI and Denies change in libido Neuro Denies syncope Psych Denies change in libido Endo Denies change in libido Physical Exam Const General: cooperative, healthy appearing, comfortable and no acute distress Orientation/consciousness: patient oriented x3 HEENT Face and sinus: Yes normal facial exam Mouth: moist mucous membranes Neck Neck: Yes normal visual inspection, Yes full ROM and Yes trachea midline Chest Chest palpation & inspection: normal inspection of the chest Resp Effort & Inspection: normal respiratory effort, able to speak in complete sentences and no respiratory distress GI Inspection: Yes normal to inspection Back/Spine/Pelvis Cervical Spine: normal cervical lordosis Thoracic/Lumbar Spine: thoracic and lumbar spine normal to inspection Skin General skin exam: no rashes or lesions noted Neuro General: patient oriented x3, gait normal, tone normal and moves all extremities Extrem General: Yes normal to inspection and Yes capillary refill normal Office Procedures Post Void Residual Post Residual Void Post Void Residual (PVR): 21 [id number] Void Residual by ultrasound Assessment & Plan Assessment & Plan (1) Benign prostatic hyperplasia with urinary frequency: Code(s): N40.1 - Benign prostatic hyperplasia with lower urinary tract symptoms; R35.0 - Frequency of micturition (2) Bladder instability: Code(s): N32.89 - Other specified disorders of bladder Plan 2 month follow-up Trial oxybutynin Orders: Orders AMB Post Void Residual by ultrasound Today R35.0 - Frequency of micturition Medications: New oxybutynin chloride ER 5 mg PO DAILY 30 tabs 1RF 30 days N32.81 - Overactive bladder, N40.1 - Benign prostatic hyperplasia with lower urinary tract symptoms, R35.0 - Frequency of micturition, R39.15 - Urgency of urination Patient Instructions: Imaging studies, laboratory and physical exam results were discussed and reviewed in detail. No major barriers to patient understanding were identified. An opportunity to ask questions regarding the treatment plan was provided. All questions were answered. The patient expressed understanding and agreement with the above treatment plan. The patient is aware they should contact our office by phone for worsening of their current condition or the appearance of new urologic symptoms. Compliance is encouraged with any medications and followup testing that is ordered. It is a privilege to participate in the urologic care of your patient. If you have any questions or concerns regarding treatment for the above conditions, or other urologic issues, please do not hesitate to contact me. The office telephone contact is [phone]. This note is constructed using voice recognition software. While every effort has been made to ensure accuracy head host/hostess errors may have been included. Yours sincerely, Dr Moi Tellez MD, [facility] - Urology Providers of Expert, Compassionate Care for the Genitourinary System Coding Level of Care Code Est Pt Level 4 (53453) Diagnoses Benign prostatic hyperplasia with urinary frequency N40.1; R35.0 Bladder instability N32.89 CPT Codes Post Residual Void - PVR CPT Code: 60957-[id number] Void Residual by ultrasound ([id number])
== END 2023-08-27 12:13 | disposition home or self-care (01) ==
PROVIDERS: PCP Internal Medicine; Visit Provider Urology
DX: N40.1 Benign prostatic hyperplasia with lower urinary tract symptoms (principal); R35.0 Frequency of micturition; N32.89 Other specified disorders of bladder
CPT/HCPCS: 99214

== ENCOUNTER → 2023-08-27 11:42 | Outpatient (BNVA) | payer MEDICARE, SELFPAY | PROVIDERS: PCP Internal Medicine; Visit Provider Urology | DX: N40.1 Benign prostatic hyperplasia with lower urinary tract symptoms (principal); R35.0 Frequency of micturition; N32.89 Other specified disorders of bladder | CPT/HCPCS: 51798; 99212 ==

== ENCOUNTER 2023-09-07 11:21 | Outpatient (REF) | payer MEDICARE, SELFPAY ==
[2023-09-07 13:05] LABS: MANUAL DIFF FLAG NO
[2023-09-07 13:20] LABS: Basophils Absolute Auto 0.1 X10*3/uL (0.0-0.2); Basophils Percent Auto 0.5 % (0-2); Eosinophils Absolute Auto 0.2 X10*3/uL (0.0-0.4); Eosinophils Percent Auto 2.3 % (0-4); Hematocrit 46.1 % (42.0-52.0); Hemoglobin 15.2 g/dl (14.0-18.0); Imm Gran Abs Auto 0.03 X10*3/uL (0.00-0.03); Imm Gran Pct Auto 0.3 % (0.0-0.4); Lymphocytes Absolute Auto 2.6 X10*3/uL (1.2-4.9); Lymphocytes Percent Auto 24.8 % (20-40); Mean Corpuscular Hemoglobin 29.7 pg (27.0-33.0); Mean Corpuscular Volume 90.2 fL (80.0-98.0); Mean Platelet Volume 11.7 fL (9.4-12.4); Monocytes Absolute Auto 0.9 X10*3/uL (0.1-1.2); Monocytes Percent Auto 8.9 % (2-11); Neutrophils Absolute Auto 6.6 x10*3/uL (2.0-8.3); Neutrophils Percent Auto 63.2 % (45-73); Platelet Count 295 X10*3/uL (160-400); Red Blood Count 5.11 X10*6/uL (4.60-5.80); Red Cell Distribution Width 14.1 % (11.0-16.0); White Blood Count 10.5 X10*3/uL (4.8-10.8)
[2023-09-07 14:10] LABS: Appearance Urine Clear; Color Urine Dark Yellow; Glucose Urine UA Negative (Negative); Leukocyte Esterase Urine Small (1+) (Negative); Nitrite Urine Negative (Negative); Specific Gravity - Urine 1.015 (1.005-1.025); UMIC TRIGGER UACC YES; Urine Blood Negative (Negative); Urine Ketones Trace mg/dL (Negative); Urine Protein Negative (Neg-Trace)
[2023-09-07 14:19] LABS: Bacteria Urine None Seen (None Seen); Hyaline Casts Urine 0-2 /LPF (0-2); RBC Urine 0-2 /HPF (0-2); Squamous Epithelial Cell Urine 0-2 /HPF (0-2); UACC Culture Trigger YES; WBC Urine 0-5 /HPF (0-5)
[2023-09-07 14:36] LABS: Alanine Aminotransferase 27 U/L (0-40); Albumin Level 4.2 g/dL (3.5-5.0); Alkaline Phosphatase 81 U/L (39-117); Anion Gap 13 (12-20); Aspartate Amino Transferase 29 U/L (5-37); Bilirubin Total 0.7 mg/dL (0.0-1.0); Blood Urea Nitrogen 13 mg/dL (9-16); Calcium 9.2 mg/dL (8.4-10.2); Carbon Dioxide 27 mmol/L (22-29); Chloride 103 mmol/L (96-108); Cholesterol 225 mg/dL (<200); Estimated Glomerular Filt Rate > 60; Glucose Fasting 77 mg/dL (60-99); HDL Cholesterol 40 mg/dL (>40); LDL Cholesterol Calculated 166 mg/dL (<100); Sodium 139 mmol/L (135-145); Total Protein 7.5 g/dL (6.5-8.0); Triglycerides 95 mg/dL (<150)
[2023-09-07 14:53] LABS: TSH reflex Free T4 0.37 uIU/mL (0.32-4.0); Vitamin D 25-OH Total 55.3 ng/mL (>30)
== END 2023-09-07 11:22 | disposition home or self-care (01) ==
LOC: HO.HMGCLDS 11:21
PROVIDERS: PCP Internal Medicine; Visit Provider Internal Medicine
DX: E78.00 Pure hypercholesterolemia, unspecified (principal); I10 Essential (primary) hypertension; E55.9 Vitamin D deficiency, unspecified; R30.0 Dysuria
CPT/HCPCS: 36415; 80053; 80061; 81001; 82306; 84443; 85025; 87086

== ENCOUNTER 2023-09-16 09:39 | Outpatient (AMB) | payer MEDICARE, SELFPAY ==
--- NOTE | 2023-09-16 09:43 | MHC.PC.OV ---
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 Accompanied by: Self / Same As Patient Allergies azithromycin [AZITHROMYCIN] Allergy (Unknown, Verified 09/16/23 10:10) HEARTBURN, stomach upset ciprofloxacin [From CIPRO] Allergy (Unknown, Verified 09/16/23 10:10) STOMACH UPSET Medication List - Last Reconciled 09/16/23 by Jun Villegas MD baclofen 20 mg PO TID PRN bupropion HCl 300 mg PO QAM [id number]-[id number]-[id number] 50-325-40 mg 1 cap PO Q4H PRN cholecalciferol (vitamin D3) 50 mcg PO DAILY 90 days diazepam 5 mg PO DAILY PRN duloxetine 60 mg PO DAILY gabapentin 1,600 mg PO BID hydroxyzine HCl 25 mg PO QID PRN mirtazapine (Remeron) 15 mg PO BEDTIME oxybutynin chloride ER 5 mg PO DAILY 30 days ropinirole 2 mg PO DAILY PRN tamsulosin 0.8 mg PO DAILY vitamin B complex 1 tab PO DAILY Tobacco use date assessed: 09/16/23 Dental Screening Dental Screen Date: 09/16/23 Did you have a dental visit in the last 12 months?: Yes Did you have a dental problem in the last 6 months where you did not have access to dental care?: No Was dental information given to patient?: Patient has dentist HPI hyperlipidemia, elevated LFTs HPI Details Patient comes in today for his follow up visit States that he feels okay He denies any headaches; still has occasional brief dizzy spells with changes in position but states that they are not anywhere like they were when he was on his BP medication and cholesterol medication Denies any chest pains, no SOB No nausea/vomiting, no abdominal pain No change in bowel habits noted Needs his Lotrisone cream Rx refilled Had his follow up labs done last week - to discuss his results [facility] Medical History Overweight (BMI 25.0-29.9) Obesity (BMI 30-39.9) Benign prostatic hyperplasia with urinary frequency Lumbar degenerative disc disease Vitamin D deficiency Pure hypercholesterolemia Benign essential hypertension Cellulitis of knee, left Knee injury Surgical History History of colonoscopy History of surgery History of surgery Family History Mother Arthritis Acute cataract Glaucoma Father Heart disease Other Substance use disorder Social History Housing: House Alcohol intake: former Patient Tobacco Use Status: Former Tobacco user e-Cigarette/Vaping Use: Never Used Second Hand Smoke Exposure: No service: No Current occupational status: disabled Cognitive needs: No Hearing needs: No Vision needs: Yes (glasses) Questionnaire PHQ-9 Over the last 2 weeks, how often have you been bothered by any of the following problems? 1. Little interest or pleasure in doing things: several days 2. Feeling down, depressed, or hopeless: several days 3. Trouble falling or staying asleep, or sleeping too much: several days 4. Feeling tired or having little energy: more than half the days 5. Poor appetite or overeating: not at all 6. Feeling bad about yourself - or that you are a failure or have let yourself or your family down: several days 7. Trouble concentrating on things, such as reading the newspaper or watching television: not at all 8. Moving or speaking so slowly that other people could have noticed. Or the opposite - being so fidgety or restless that you have been moving around a lot more than usual: not at all 9. Thoughts that you would be better off or of hurting yourself in some way: not at all Total score: 6 Depression Screening Interpretation: Positive Depression Screening Follow-up: Existing condition and In treatment Depression Screening Done: Yes 70165 - PHQ-9 Billing: Yes Source: Developed by Drs. Justin Loya, Jacqueline Araujo, Anastacio Pinto and colleagues, with an educational kg from [employer]. Thrive Questionnaire Date Thrive assessed: 09/16/23 I am a: Patient What is your living situation today?: I have a steady place to live Within the past 12 months, did the food you bought not last and you didn't have the money to get more?: Never true Within the past 12 months, did you worry whether your food would run out before you got money to buy more?: Never true Do you have trouble paying for medicines?: No Do you have trouble getting transportation to medical appointments?: No Do you have trouble paying your heating and electricity bill?: No Do you have trouble taking care of your child, family member or friend?: No Do you have trouble with day-to-day activities such as bathing, preparing meals, shopping, managing finances, etc.?: No Are you currently unemployed and looking for a job?: No Are you interested in more education?: No Please select the resources that you would like help with: None Currently or been in a relationship where the following occur: no concerns reported THRIVE Score: 0 AUDIT C Alcohol Use Questionnaire (AUDIT-C) 1. How often do you have a drink containing alcohol?: Never 3. How often do you have six or more drinks on one occasion?: Never Total Score: 0 Score Reviewed/Action Taken: Yes REED-7 AMB Questionnaire REED-7 Date REED - 7 assessed: 09/16/23 Feeling nervous, anxious, or on edge: 0 = Not at all Not being able to stop or control worryin = Not at all Worrying too much about different things: 0 = Not at all Trouble relaxin = Not at all Being so restless that it is hard to sit still: 0 = Not at all Becoming easily annoyed or irritable: 0 = Not at all Feeling afraid as if something awful might happen: 0 = Not at all Total REED-7 score (0-4 normal; 5-9 mild; 10-14 moderate; 15-21 severe): 0 Source: Developed by Drs. Justin Loya, Jacqueline Araujo, Anastacio Pinto and colleagues, with an educational kg from [employer]. Review of Systems Const Denies chills, Denies fatigue, Denies fever(s) and Denies headache(s) ENT Denies dysphagia, Reports dizziness (on and off, mostly with changes in position but this has improved a lot), Denies otalgia, Denies headache(s), Denies neck pain, Denies odynophagia and Denies sore throat Card Denies chest pain, Denies palpitations and Denies dyspnea Resp Denies cough and Denies dyspnea GI Denies abdominal pain, Denies constipation, Denies dysphagia, Denies heartburn, Denies diarrhea, Denies nausea, Denies odynophagia and Denies vomiting Denies dysuria, Denies nocturia and Denies urinary frequency Musc Reports back pain (over the lower back - chronic) and Denies neck pain Skin/Breast Denies rash Neuro Reports dizziness (on and off, mostly with changes in position but this has improved a lot) and Denies headache(s) Psych Reports depression Endo Denies fatigue and Denies palpitations Physical exam (Primary Care) Vital Signs: Last Vital Signs Pulse 65 09/16/23 09:45 BP 118/70 09/16/23 09:45 Pulse Ox 95 09/16/23 09:45 Oxygen Delivery Method Room Air 09/16/23 09:45 BMI result Body Mass Index 27.1 Tobacco/Smoking Status: Tobacco use Status Tobacco use date assessed 09/16/23 09/16/23 09:48 Patient Tobacco Use Status Former Tobacco user 09/16/23 09:43 e-Cigarette/Vaping Use Never Used 09/16/23 09:43 PHQ-9: PHQ-9 Score PHQ-9: Total score 6 09/16/23 09:48 Depression Screening Interpretation: Positive Depression Screening Follow-up: Existing condition and In treatment Thrive Assessment: Date of Thrive Assessment Date Thrive assessed 09/16/23 09/16/23 09:48 Currently or been in a relationship where the following occur: no concerns reported Const General: no acute distress and alert HENMT Ears: TM's normal bilaterally and EAC's normal Throat: Yes posterior oropharynx normal and Yes tonsils normal (no TP congestion) Neck Neck: Yes no lymphadenopathy and Yes supple Resp Auscultation: clear to auscultation bilaterally, no rales and no wheezes Cardio Rate: regular rate Rhythm: regular rhythm Heart sounds: no murmurs GI Palpation (GI): Soft to palpation and nontender Auscultation: normal bowel sounds General: Yes no CVA tenderness Back/Spine/Pelvis Back: no CVA tenderness Thoracic/Lumbar Spine: lumbar spinal tenderness Skin Rashes: no rashes Extrem General: Yes no clubbing, cyanosis or edema Results Reviewed Results Reviewed: Laboratory Tests 09/07/23 09/07/23 09/07/23 11:25 11:25 11:30 WBC 10.5 Hgb 15.2 Hct 46.1 Plt Count 295 Sodium 139 Potassium 4.0 Creatinine 0.91 Estimated GFR > 60 Fasting Glucose 77 Calcium 9.2 AST 29 ALT 27 Triglycerides 95 Cholesterol 225 H LDL Cholesterol, Calc 166 H HDL Cholesterol 40 L TSH 0.37 Ur Specific Howes 1.015 Urine Protein Negative Urine Glucose (UA) Negative Urine Blood Negative Urine Nitrite Negative Ur Leukocyte Esterase Small (1+) H Assessment and Plan Assessment & Plan (1) Orthostatic dizziness: Code(s): R42 - Dizziness and giddiness Plan: Patient felt that his symptoms have improved a lot since he stopped taking his Atorvastatin and Losartan Head CT done back in August 2022 came out negative for acute changes Also had bilateral carotid US done back in November 2022 and Holter monitor and echocardiogram done in December 2022 - all of these came back normal as well with no significant abnormalities or findings Tilt table testing done at [facility] last year also came out normal Review of patient's past records show that he has been consistently bradycardic in the past, with EKG done back in 2006 showing bradycardia as the only pertinent finding back then Random cortisol level done back in February 2023 also came back normal Was seen by both neurology and cardiology for further evaluation - neurology recommended continuing observation as his symptoms appear to have improved significantly with cessation of his Losartan and Atorvastatin Follow up with neurology as scheduled (2) Pure hypercholesterolemia: Code(s): E78.00 - Pure hypercholesterolemia, unspecified Plan: Results of his labs done last week reviewed and discussed with patient - advised his cholesterol numbers have improved slightly from previous although they are still elevated Reinforced low-cholesterol diet His Atorvastatin 10 mg QD was discontinued and he was started on a trial of Rosuvastatin 5 mg QD at his last visit but he also stopped taking it after a few doses as he recalls not feeling well while on the Rx States that he started taking some OTC Red Yeast Rice about 3 to 4 weeks ago and has had no problems with it so far - would like to continue on that and on diet modification for now Will recheck his labs and fasting lipids in 4 months for follow-up (3) Benign essential hypertension: Code(s): I10 - Essential (primary) hypertension Plan: Reinforced low sodium diet - goal is systolic BP of 120 mm or less Was on Losartan for which he was instructed to take 100 mg alternating with 50 mg every other day but he ultimately stopped taking this a few months ago as he felt that the medication was contributing to his symptoms of fatigue, recurrent dizziness and weakness States that all of these improved upon cessation of his Losartan His BP also appears to have improved a lot with his recent weight loss Patient is instructed to continue monitoring his blood pressure regularly for now (4) Migraine: Code(s): G43.909 - Migraine, unspecified, not intractable, without status migrainosus Qualifiers: Migraine type: unspecified Status migrainosus presence: without status migrainosus Intractability: not intractable Qualified Code(s): G43.909 - Migraine, unspecified, not intractable, without status migrainosus Plan: Reinforced avoidance of migraine triggers Continue Fioricet 50-325-40 mg PRN Follow up with neurology as scheduled (5) Elevated LFTs: Code(s): R79.89 - Other specified abnormal findings of blood chemistry Plan: His LFTs have returned back to normal with his recent weight loss Will continue to monitor his LFTs regularly (6) Vitamin D deficiency: Code(s): E55.9 - Vitamin D deficiency, unspecified Plan: Continue Vitamin D3 2000 units QD (7) Lumbar degenerative disc disease: Code(s): M51.36 - Other intervertebral disc degeneration, lumbar region Plan: Lumbar spine MRI done back on 07/06/2018 revealed (+) lumbar spondylosis that is essentially unchanged from his findings on 10/02/2017 - there were left foraminal disc protrusions abutting the exiting left nerve roots along L3 to S1 Reinforced activity and weight-lifting restrictions States that he has been to pain management in the past; will refer back to pain management if needed Continue Baclofen 20 mg TID PRN and Duloxetine 60 mg QD Was on Gabapentin 800 mg TID but this was cut back to 800 mg BID due to his recurrent orthostasis/dizziness, which did not make any difference and he is now back on 1600 mg BID (8) Benign prostatic hyperplasia with urinary frequency: Code(s): N40.1 - Benign prostatic hyperplasia with lower urinary tract symptoms; R35.0 - Frequency of micturition Plan: Continue Tamsulosin 0.4 mg Q HS He was also started recently on Oxybutynin ER 5 mg QD to help with his urinary symptoms Follow up with urology as scheduled (9) Insomnia: Code(s): G47.00 - Insomnia, unspecified Qualifiers: Insomnia type: unspecified Qualified Code(s): G47.00 - Insomnia, unspecified Plan: Sleep hygiene reinforced Current Rx, including Diazepam, help with his sleep at night (10) Anxiety: Code(s): F41.9 - Anxiety disorder, unspecified Plan: Continue Hydroxyzine 25 mg TID PRN and Diazepam 5 mg QD PRN Is also on Bupropion 300 mg Q AM Follow up with psychiatry as scheduled (11) Depression: Code(s): F32.A - Depression, unspecified Qualifiers: Depression Type: major depressive disorder Major depression recurrence: recurrent Active/Remission status: currently active Major depression episode severity: unspecified Qualified Code(s): F33.9 - Major depressive disorder, recurrent, unspecified Plan: Continue Bupropion 300 mg Q AM and Mirtazapine 15 mg Q HS Follow up with psychiatry as scheduled (12) Overweight (BMI 25.0-29.9): Code(s): E66.3 - Overweight Plan: Reinforced diet/exercise as tolerated/lose weight Plan Follow up in 4 months Orders: Orders Lipid Panel 4 Months E78.00 - Pure hypercholesterolemia, unspecified Comprehensive [place]. Panel Fast 4 Months E78.00 - Pure hypercholesterolemia, unspecified Medications: New clotrimazole-betamethasone 1-0.05 % 1 appl topical BID PRN 45 grams 3RF rash Coding Level of Care Code Est Pt Level 4 (22389) Diagnoses Orthostatic dizziness R42 Pure hypercholesterolemia E78.00 Benign essential hypertension I10 Migraine without status migrainosus, not intractable, unspecified migraine type G43.909 Migraine type: unspecified Status migrainosus presence: without status migrainosus Intractability: not intractable Elevated LFTs R79.89 Vitamin D deficiency E55.9 Lumbar degenerative disc disease M51.36 Benign prostatic hyperplasia with urinary frequency N40.1; R35.0 Insomnia, unspecified type G47.00 Insomnia type: unspecified Anxiety F41.9 Episode of recurrent major depressive disorder, unspecified depression episode severity F33.9 Depression Type: major depressive disorder Major depression recurrence: recurrent Active/Remission status: currently active Major depression episode severity: unspecified Overweight (BMI 25.0-29.9) E66.3
[2023-09-16 09:45] VITALS: BP 118/70; PULSE 65; O2SAT 95; BMI 27.1
== END 2023-09-16 10:26 | disposition home or self-care (01) ==
PROVIDERS: PCP Internal Medicine; Visit Provider Internal Medicine
DX: R42 Dizziness and giddiness (principal); F33.9 Major depressive disorder, recurrent, unspecified; I10 Essential (primary) hypertension; E78.00 Pure hypercholesterolemia, unspecified; G43.909 Migraine, unspecified, not intractable, without status migrainosus; R79.89 Other specified abnormal findings of blood chemistry; E55.9 Vitamin D deficiency, unspecified; M51.36 Other intervertebral disc degeneration, lumbar region; N40.1 Benign prostatic hyperplasia with lower urinary tract symptoms; R35.0 Frequency of micturition; G47.00 Insomnia, unspecified; F41.9 Anxiety disorder, unspecified
CPT/HCPCS: 99214

== ENCOUNTER 2023-10-30 08:57 | Outpatient (AMB) | payer MEDICARE, SELFPAY ==
--- NOTE | 2023-10-30 08:58 | MHC.OFFVIS ---
Intake Intake Visit Reasons: 2M Med Review(Oxybutynin)Portal Confirm Intake Note: Patient is Present for Telephone Follow Up Urology Med: Tamsulosin, Oxybutynin Antibiotic Allergy: Cipro, Azithromycin Blood Thinner: None Allergies azithromycin [AZITHROMYCIN] Allergy (Unknown, Verified 10/30/23 08:59) HEARTBURN, stomach upset ciprofloxacin [From CIPRO] Allergy (Unknown, Verified 10/30/23 08:59) STOMACH UPSET Medication List - Last Reconciled 10/30/23 by Moi Tellez MD baclofen 20 mg PO TID PRN bupropion HCl 300 mg PO QAM [id number]-[id number]-[id number] 50-325-40 mg 1 cap PO Q4H PRN carisoprodol (Soma) 350 mg PO TID PRN cholecalciferol (vitamin D3) 50 mcg PO DAILY 90 days clotrimazole-betamethasone 1-0.05 % 1 appl topical BID PRN diazepam 5 mg PO DAILY PRN duloxetine 60 mg PO DAILY fesoterodine ER 4 mg PO DAILY 30 days gabapentin 1,600 mg PO BID hydroxyzine HCl 25 mg PO QID PRN mirtazapine (Remeron) 15 mg PO BEDTIME ropinirole 2 mg PO DAILY PRN tamsulosin 0.8 mg PO DAILY vitamin B complex 1 tab PO DAILY HPI HPI Comments History of Present Illness Details Kiana is a pleasant male. He is a patient of Dr. Villegas. He seen for the following urologic conditions - lower urinary tract symptoms - primarily bladder instability Telemedicine Evaluation 15 min Consultation [email or web address] Video Follow-up from trial anticholinergic Worked oxybutynin but had side effects with significant dry mouth Trial Toviaz which appears to be covered by his insurance Lower urinary tract symptoms Progressive, prior PVR 80 cc, somewhat incomplete bladder emptying Did not think terazosin 5 mg more helpful than tamsulosin Imaging not performed PSA 03/08 1.5 Prior medications tadalafil, oxybuytinin - dry mouth PFSH Medical History Overweight (BMI 25.0-29.9) Obesity (BMI 30-39.9) Benign prostatic hyperplasia with urinary frequency Lumbar degenerative disc disease Vitamin D deficiency Pure hypercholesterolemia Benign essential hypertension Cellulitis of knee, left Knee injury Surgical History History of colonoscopy History of surgery History of surgery Family History Mother Arthritis Acute cataract Glaucoma Father Heart disease Other Substance use disorder Social History Housing: House Alcohol intake: former Patient Tobacco Use Status: Former Tobacco user e-Cigarette/Vaping Use: Never Used Second Hand Smoke Exposure: No service: No Current occupational status: disabled Cognitive needs: No Hearing needs: No Vision needs: Yes (glasses) Review of Systems Const All systems reviewed & are unremarkable except as noted in HPI and below Reports no additional complaints Resp Reports no additional complaints GI Reports no additional complaints Reports as per HPI Musc Reports no additional complaints Physical Exam Telemedicine evaluation Appropriate responses Regular breathing rate and rhythm HEENT Head: Yes normal to inspection Ears: hearing grossly normal bilaterally Eyes General: appearance normal, both eyes and all related structures Neck Neck: Yes normal visual inspection Chest Chest palpation & inspection: normal inspection of the chest Resp Effort & Inspection: normal respiratory effort and able to speak in complete sentences Assessment & Plan Assessment & Plan (1) Bladder instability: Code(s): N32.89 - Other specified disorders of bladder (2) Benign prostatic hyperplasia with urinary frequency: Code(s): N40.1 - Benign prostatic hyperplasia with lower urinary tract symptoms; R35.0 - Frequency of micturition Plan Two month follow-up tele Medications: New fesoterodine ER 4 mg PO DAILY 30 days 30 tabs 1RF N32.89 - Other specified disorders of bladder Patient Instructions: Imaging studies, laboratory and physical exam results were discussed and reviewed in detail. No major barriers to patient understanding were identified. An opportunity to ask questions regarding the treatment plan was provided. All questions were answered. The patient expressed understanding and agreement with the above treatment plan. The patient is aware they should contact our office by phone for worsening of their current condition or the appearance of new urologic symptoms. Compliance is encouraged with any medications and followup testing that is ordered. It is a privilege to participate in the urologic care of your patient. If you have any questions or concerns regarding treatment for the above conditions, or other urologic issues, please do not hesitate to contact me. The office telephone contact is [phone]. This note is constructed using voice recognition software. While every effort has been made to ensure accuracy health navigator errors may have been included. Yours sincerely, Dr Moi Tellez MD, [facility] - Urology Providers of Expert, Compassionate Care for the Genitourinary System Telehealth Telehealth Location of provider rendering services: practice address Location of patient: address on file Patient Identification confirmed using: Name, : Yes Telehealth method: video Patient verbally consented to treatment: Yes Patient verbally consented to billing insurance company: Yes Patient informed of any privacy concerns related to visit: Yes Coding Level of Care Code Tele Est Pt Level 4 (49434) Diagnoses Bladder instability N32.89 Benign prostatic hyperplasia with urinary frequency N40.1; R35.0
== END 2023-10-30 09:26 | disposition home or self-care (01) ==
LOC: HO.HUSH 08:57
PROVIDERS: PCP Internal Medicine; Visit Provider Urology
DX: N32.89 Other specified disorders of bladder (principal); N40.1 Benign prostatic hyperplasia with lower urinary tract symptoms; R35.0 Frequency of micturition
CPT/HCPCS: 99214

== ENCOUNTER → 2023-10-30 08:57 | Outpatient (BNVA) | payer MEDICARE, SELFPAY | PROVIDERS: PCP Internal Medicine; Visit Provider Urology | DX: R42 Dizziness and giddiness (principal); I95.1 Orthostatic hypotension; G25.81 Restless legs syndrome; N40.1 Benign prostatic hyperplasia with lower urinary tract symptoms; N13.8 Other obstructive and reflux uropathy; N32.89 Other specified disorders of bladder; R35.0 Frequency of micturition | CPT/HCPCS: 99212 ==

== ENCOUNTER 2023-10-30 10:50 | Outpatient (AMB) | payer MEDICARE, SELFPAY ==
--- NOTE | 2023-10-30 10:55 | MHC.OFFVIS ---
Intake Vital Signs 10/30/23 10:56 Height 6 ft Weight 200 lb BMI 27.1 BP 114/74 Blood Pressure Location Rt brachial Position Sitting Pulse 54 Pulse Source Pulse Oximeter Pulse Oximetry (%) 95 Oxygen Delivery Method Room Air Intake Visit Reasons: 6m f/u - CONF w/address Intake Note: Patient presents for 6 month follow up. Allergies azithromycin [AZITHROMYCIN] Allergy (Unknown, Verified 10/30/23 10:58) HEARTBURN, stomach upset ciprofloxacin [From CIPRO] Allergy (Unknown, Verified 10/30/23 10:58) STOMACH UPSET Medication List - Last Reconciled 10/30/23 by Elda Pino, [employer] WORK[employer] baclofen 20 mg PO TID PRN bupropion HCl 300 mg PO QAM [id number]-[id number] 50-325-40 mg 1 cap PO Q4H PRN carisoprodol (Soma) 350 mg PO TID PRN cholecalciferol (vitamin D3) 50 mcg PO DAILY 90 days clotrimazole-betamethasone 1-0.05 % 1 appl topical BID PRN diazepam 5 mg PO DAILY PRN duloxetine 60 mg PO DAILY fesoterodine ER 4 mg PO DAILY 30 days gabapentin 1,600 mg PO BID hydroxyzine HCl 25 mg PO QID PRN mirtazapine (Remeron) 15 mg PO BEDTIME ropinirole 2 mg PO DAILY PRN tamsulosin 0.8 mg PO DAILY vitamin B complex 1 tab PO DAILY HPI HPI Comments History of Present Illness Details 58-yr-old male presents for f/u. He reports he blew his back out in Jul, which was improving until he recently was pushing his tractor which exacerbated his low back and leg discomfort. He states that he just needs to be cautious w/ his low back. He was recently started on Oxybutynin, which caused excessive dry mouth- but not increased dizziness. He is trying to reduce coffee intake. He is working w/ Dr Parkinson to optimize his urinary frequency s/s. He has just brief orthostatic dizziness or lightheadedness if he gets up off the ground too quickly. Otherwise no significant dizziness or lightheadedness since stopping the statin and BP med. He is trying to eat better. Trying to be active. He has had an almost 50 lb wt loss over the last 2 yrs. He did start red yeast rice about a month before his most recent lipid levels were checked- still elevated but improved. No recent headaches. He has stopped Requip a while ago. He just recently had some upper leg discomfort when laying down- but thinks this was d/t pushing the tractor. [facility] Medical History Overweight (BMI 25.0-29.9) Obesity (BMI 30-39.9) Benign prostatic hyperplasia with urinary frequency Lumbar degenerative disc disease Vitamin D deficiency Pure hypercholesterolemia Benign essential hypertension Cellulitis of knee, left Knee injury Surgical History History of colonoscopy History of surgery History of surgery Family History Mother Arthritis Acute cataract Glaucoma Father Heart disease Other Substance use disorder Social History Housing: House Alcohol intake: former Patient Tobacco Use Status: Former Tobacco user e-Cigarette/Vaping Use: Never Used Second Hand Smoke Exposure: No service: No Current occupational status: disabled Cognitive needs: No Hearing needs: No Vision needs: Yes (glasses) Physical Exam Vital Signs: Last Vital Signs Pulse 54 10/30/23 10:56 BP 114/74 10/30/23 10:56 Pulse Ox 95 10/30/23 10:56 Oxygen Delivery Method Room Air 10/30/23 10:56 BMI result Body Mass Index 27.1 Const General: cooperative and no acute distress Orientation/consciousness: patient oriented x3 Resp Effort & Inspection: normal respiratory effort and able to speak in complete sentences Neuro General: patient oriented x3 Cranial nerves: Yes CN's II-XII intact bilaterally Cognition (Neuro): normal cognition Psych Appearance: grossly normal Mental Status: mental status grossly normal Speech and movement: Normal speech and movement present Affect: normal affect Attitude: cooperative Assessment & Plan Assessment & Plan (1) Orthostatic dizziness: Code(s): R42 - Dizziness and giddiness (2) Orthostasis: Code(s): I95.1 - Orthostatic hypotension (3) Restless leg syndrome: Code(s): G25.81 - Restless legs syndrome Plan Pt continues to feel significantly better off of Atorvastatin and Losartan. Continue to change positions slowly and use electrolyte replacement drinks, liquid IV- especially if he plans to be more active. Continue red yeast rice supplement. Follow lipid levels.Per last cardiology note- f/u carotid US due in 2024. Continue to optimize diet- increase fruits/vegetables. Try Magnesium 400mg qhs prn for cramps and RLS s/s. f/u in 12 months or sooner prn. Medications: New magnesium oxide may hold for loose stools 400 mg PO BEDTIME 30 days 30 tabs 6RF Coding Level of Care Code Est Pt Level 3 (17502) Diagnoses Orthostatic dizziness R42 Orthostasis I95.1 Restless leg syndrome G25.81
[2023-10-30 10:56] VITALS: BP 114/74; PULSE 54; O2SAT 95; BMI 27.1
== END 2023-10-30 11:36 | disposition home or self-care (01) ==
PROVIDERS: PCP Internal Medicine; Visit Provider Nurse Practitioner Family
DX: R42 Dizziness and giddiness (principal); I95.1 Orthostatic hypotension; G25.81 Restless legs syndrome
CPT/HCPCS: 99213

== ENCOUNTER 2023-12-28 08:07 | Outpatient (REF) | payer MEDICARE, SELFPAY ==
[2023-12-28 10:20] LABS: Appearance Urine Clear; Color Urine Yellow; Glucose Urine UA Negative (Negative); Leukocyte Esterase Urine Negative (Negative); Nitrite Urine Negative (Negative); PH 6.5 (5.0-9.0); Specific Gravity - Urine 1.015 (1.005-1.025); Urine Blood Negative (Negative); Urine Ketones Negative (Negative); Urine Protein Negative (Neg-Trace)
[2023-12-28 11:07] LABS: Alanine Aminotransferase 23 U/L (0-40); Albumin Level 3.9 g/dL (3.5-5.0); Alkaline Phosphatase 69 U/L (39-117); Anion Gap 13 (12-20); Aspartate Amino Transferase 31 U/L (5-37); Bilirubin Total 0.3 mg/dL (0.0-1.0); Blood Urea Nitrogen 17 mg/dL (9-16); Carbon Dioxide 25 mmol/L (22-29); Chloride 106 mmol/L (96-108); Cholesterol 229 mg/dL (<200); Estimated Glomerular Filt Rate > 60; Glucose Fasting 104 mg/dL (60-99); HDL Cholesterol 41 mg/dL (>40); LDL Cholesterol Calculated 167 mg/dL (<100); Potassium 4.6 mmol/L (3.3-5.1); Sodium 139 mmol/L (135-145); Total Protein 7.2 g/dL (6.5-8.0); Triglycerides 108 mg/dL (<150)
== END 2023-12-28 08:08 | disposition home or self-care (01) ==
LOC: HO.HMGCLDS 08:07
PROVIDERS: PCP Internal Medicine; Visit Provider Internal Medicine
DX: R30.0 Dysuria (principal); E78.00 Pure hypercholesterolemia, unspecified
CPT/HCPCS: 36415; 80053; 80061; 81003

== ENCOUNTER 2024-01-04 08:59 | Outpatient (AMB) | payer MEDICARE, SELFPAY ==
--- NOTE | 2024-01-04 09:09 | MHC.PC.OV ---
Vital Signs 01/04/24 09:12 Height 6 ft Weight 205 lb 8 oz BMI 27.9 BP 120/64 Blood Pressure Location Lt brachial Position Sitting Pulse 68 Pulse Source Pulse Oximeter Pulse Oximetry (%) 96 Oxygen Delivery Method Room Air Intake Visit Reasons: hyperlipidemia, orthostasis, depression Intake Note: Patient is here to follow up on HLD, Orthostasis, Depression. 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 Road Maker: Not Required per policy Accompanied by: Self / Same As Patient Allergies azithromycin [AZITHROMYCIN] Allergy (Unknown, Verified 01/04/24 09:20) HEARTBURN, stomach upset ciprofloxacin [From CIPRO] Allergy (Unknown, Verified 01/04/24 09:20) STOMACH UPSET atorvastatin Adverse Reaction (Intermediate, Verified 01/04/24 09:27) exhaustion, fatigue Medication List - Last Reconciled 01/04/24 by Jun Villegas MD baclofen 20 mg PO TID PRN bupropion HCl XL 300 mg PO QAM [id number]-eyvtttp-[id number] 50-325-40 mg 1 cap PO Q4H PRN carisoprodol (Soma) 350 mg PO TID PRN cholecalciferol (vitamin D3) 50 mcg PO DAILY 90 days clotrimazole-betamethasone 1-0.05 % 1 appl topical BID PRN diazepam 5 mg PO DAILY PRN duloxetine 60 mg PO DAILY fesoterodine ER 4 mg PO DAILY 30 days gabapentin 1,600 mg PO BID hydroxyzine HCl 25 mg PO QID PRN magnesium oxide 400 mg PO BEDTIME 30 days mirtazapine (Remeron) 15 mg PO BEDTIME tamsulosin 0.8 mg PO DAILY vitamin B complex 1 tab PO DAILY Tobacco use date assessed: 01/04/24 Dental Screening Dental Screen Date: 09/16/23 HPI hyperlipidemia, orthostasis, depression HPI Details Patient comes in today for his follow up visit States that he feels okay He denies any headaches States that he still has occasional brief spells of dizziness that mostly occur with changes in position but they last only for a few seconds Denies any chest pains, no SOB No nausea/vomiting, no abdominal pain No change in bowel habits noted Had his follow up labs done last week - to discuss his results [facility] Medical History (Updated 01/04/24 @ 09:29 by Jun Villegas MD) Overweight (BMI 25.0-29.9) Benign prostatic hyperplasia with urinary frequency Lumbar degenerative disc disease Vitamin D deficiency Pure hypercholesterolemia Benign essential hypertension Cellulitis of knee, left Knee injury Surgical History History of colonoscopy History of surgery History of surgery Family History Mother Arthritis Acute cataract Glaucoma Father Heart disease Other Substance use disorder Social History Housing: House Alcohol intake: former Patient Tobacco Use Status: Former Tobacco user e-Cigarette/Vaping Use: Never Used Second Hand Smoke Exposure: No service: No Current occupational status: disabled Cognitive needs: No Hearing needs: No Vision needs: Yes (glasses) Questionnaire PHQ-9 Over the last 2 weeks, how often have you been bothered by any of the following problems? 1. Little interest or pleasure in doing things: several days 2. Feeling down, depressed, or hopeless: nearly every day 3. Trouble falling or staying asleep, or sleeping too much: several days 4. Feeling tired or having little energy: nearly every day 5. Poor appetite or overeating: nearly every day 6. Feeling bad about yourself - or that you are a failure or have let yourself or your family down: more than half the days 7. Trouble concentrating on things, such as reading the newspaper or watching television: nearly every day 8. Moving or speaking so slowly that other people could have noticed. Or the opposite - being so fidgety or restless that you have been moving around a lot more than usual: not at all 9. Thoughts that you would be better off or of hurting yourself in some way: not at all Total score: 16 Depression Screening Interpretation: Positive Depression Screening Follow-up: Existing condition and In treatment Depression Screening Done: Yes 66747 - PHQ-9 Billing: Yes Source: Developed by Drs. Justin Loya, Jacqueline Araujo, Anastacio Pinto and colleagues, with an educational kg from [employer]. Thrive Questionnaire Date Thrive assessed: 09/16/23 REED-7 AMB Questionnaire REED-7 Date REED - 7 assessed: 01/04/24 Feeling nervous, anxious, or on edge: 3 = Nearly every day Not being able to stop or control worryin = Nearly every day Worrying too much about different things: 3 = Nearly every day Trouble relaxin = Nearly every day Being so restless that it is hard to sit still: 0 = Not at all Becoming easily annoyed or irritable: 3 = Nearly every day Feeling afraid as if something awful might happen: 1 = Several days Total REED-7 score (0-4 normal; 5-9 mild; 10-14 moderate; 15-21 severe): 16 Source: Developed by Drs. Justin Loya, Jacqueline Araujo, Anastacio Pinto and colleagues, with an educational kg from [employer]. Review of Systems Const Denies chills, Denies fatigue, Denies fever(s) and Denies headache(s) ENT Denies dysphagia, Reports dizziness (on and off, mostly with changes in position but this has improved a lot), Denies otalgia, Denies headache(s), Denies neck pain, Denies odynophagia and Denies sore throat Card Denies chest pain, Denies palpitations and Denies dyspnea Resp Denies cough and Denies dyspnea GI Denies abdominal pain, Denies constipation, Denies dysphagia, Denies heartburn, Denies diarrhea, Denies nausea, Denies odynophagia and Denies vomiting Denies dysuria, Denies nocturia and Denies urinary frequency Musc Reports back pain (over the lower back - chronic) and Denies neck pain Skin/Breast Denies rash Neuro Reports dizziness (on and off, mostly with changes in position but this has improved a lot) and Denies headache(s) Psych Reports depression Endo Denies fatigue and Denies palpitations Physical exam (Primary Care) BMI result Body Mass Index 27.9 Tobacco/Smoking Status: Tobacco use Status Tobacco use date assessed 09/16/23 09/16/23 09:48 Patient Tobacco Use Status Former Tobacco user 09/16/23 09:43 e-Cigarette/Vaping Use Never Used 09/16/23 09:43 Depression Screening Interpretation: Positive Depression Screening Follow-up: Existing condition and In treatment Thrive Assessment: Date of Thrive Assessment Date Thrive assessed 09/16/23 09/16/23 09:48 Const General: no acute distress and alert HENMT Ears: TM's normal bilaterally and EAC's normal Throat: Yes posterior oropharynx normal and Yes tonsils normal (no TP congestion) Neck Neck: Yes no lymphadenopathy and Yes supple Resp Auscultation: clear to auscultation bilaterally, no rales and no wheezes Cardio Rate: regular rate Rhythm: regular rhythm Heart sounds: no murmurs GI Palpation (GI): Soft to palpation and nontender Auscultation: normal bowel sounds General: Yes no CVA tenderness Back/Spine/Pelvis Back: no CVA tenderness Thoracic/Lumbar Spine: lumbar spinal tenderness Skin Rashes: no rashes Extrem General: Yes no clubbing, cyanosis or edema Results Reviewed Results Reviewed: Laboratory Tests 12/28/23 12/28/23 08:28 08:29 Sodium 139 Potassium 4.6 Creatinine 0.98 Estimated GFR > 60 Fasting Glucose 104 H Calcium 9.0 AST 31 ALT 23 Triglycerides 108 Cholesterol 229 H LDL Cholesterol, Calc 167 H HDL Cholesterol 41 Ur Specific [place] 1.015 Urine Protein Negative Urine Glucose (UA) Negative Urine Blood Negative Urine Nitrite Negative Ur Leukocyte Esterase Negative Assessment and Plan Assessment & Plan (1) Pure hypercholesterolemia: Code(s): E78.00 - Pure hypercholesterolemia, unspecified Plan: Results of his labs done last week reviewed and discussed with patient - he is advised his cholesterol numbers are still elevated and are mostly unchanged from previous Per his request, we have allowed him to try taking OTC Red Yeast Rice for the past few months (states that he's had no problems with it) but it does not appear to have helped much with his cholesterol Reinforced low-cholesterol diet He has NOT been able to tolerate BOTH Atorvastatin and Rosuvastatin in the past Will start him for now on a trial of Ezetimibe 10 mg QD Will recheck his labs and fasting lipids in 4 months for follow-up (2) Orthostatic dizziness: Code(s): R42 - Dizziness and giddiness Plan: Patient feels that his symptoms have improved a lot since he stopped taking his Atorvastatin and Losartan, which he believes were responsible for a lot of his symptoms back when he was still on them Head CT done back in August 2022 came out negative for acute changes He also had bilateral carotid US done back in November 2022 and Holter monitor and echocardiogram done in December 2022 - all of these came back normal with no significant abnormalities or findings Tilt table testing done at [facility] last year also came out normal Review of patient's past records show that he has been consistently bradycardic in the past, with EKG done back in 2006 showing bradycardia as the only pertinent finding back then Random cortisol level done back in February 2023 also came back normal He was seen by both neurology and cardiology for further evaluation - neurology recommended continuing observation as his symptoms appear to have improved significantly with cessation of his Losartan and Atorvastatin Follow up with neurology as scheduled or as needed (3) Benign essential hypertension: Code(s): I10 - Essential (primary) hypertension Plan: Reinforced low sodium diet - goal is systolic BP of 120 mm or less Was on Losartan for which he was instructed to take 100 mg alternating with 50 mg every other day but he ultimately stopped taking this a few months ago as he felt that the medication was contributing to his symptoms of fatigue, recurrent dizziness and weakness States that all of these improved upon cessation of his Losartan His BP also appears to have improved a lot with his recent weight loss and has NOT needed any Rx for blood pressure so far Patient is reminded to continue monitoring his blood pressure regularly (4) Migraine: Code(s): G43.909 - Migraine, unspecified, not intractable, without status migrainosus Qualifiers: Migraine type: unspecified Status migrainosus presence: without status migrainosus Intractability: not intractable Qualified Code(s): G43.909 - Migraine, unspecified, not intractable, without status migrainosus Plan: Stable Reinforced avoidance of migraine triggers Continue Fioricet 50-325-40 mg PRN Follow up with neurology as scheduled (5) Elevated LFTs: Code(s): R79.89 - Other specified abnormal findings of blood chemistry Plan: His LFTs have returned back to normal with his weight loss and have remained normal on his recent labs Will continue to monitor his LFTs regularly (6) Vitamin D deficiency: Code(s): E55.9 - Vitamin D deficiency, unspecified Plan: Continue Vitamin D3 2000 units QD (7) Lumbar degenerative disc disease: Code(s): M51.36 - Other intervertebral disc degeneration, lumbar region Plan: Lumbar spine MRI done back on 07/06/2018 revealed (+) lumbar spondylosis that is essentially unchanged from his findings on 10/02/2017 - there were left foraminal disc protrusions abutting the exiting left nerve roots along L3 to S1 Reinforced activity and weight-lifting restrictions States that he has been to pain management in the past; will refer back to pain management if needed Continue Baclofen 20 mg TID PRN and Duloxetine 60 mg QD Was on Gabapentin 800 mg TID but this was cut back to 800 mg BID due to his recurrent orthostasis/dizziness, which did not make any difference and he is now back on 1600 mg BID (8) Benign prostatic hyperplasia with urinary frequency: Code(s): N40.1 - Benign prostatic hyperplasia with lower urinary tract symptoms; R35.0 - Frequency of micturition Plan: Continue Tamsulosin 0.4 mg Q HS He was also started on Oxybutynin ER 5 mg QD to help with his urinary symptoms but he appears to have stopped taking this at some point Follow up with urology as scheduled (9) Insomnia: Code(s): G47.00 - Insomnia, unspecified Qualifiers: Insomnia type: unspecified Qualified Code(s): G47.00 - Insomnia, unspecified Plan: Sleep hygiene reinforced Current Rx, including Diazepam, help with his sleep at night (10) Anxiety: Code(s): F41.9 - Anxiety disorder, unspecified Plan: Continue Hydroxyzine 25 mg TID PRN and Diazepam 5 mg QD PRN Is also on Bupropion 300 mg Q AM Follow up with psychiatry as scheduled (11) Depression: Code(s): F32.A - Depression, unspecified Qualifiers: Depression Type: major depressive disorder Major depression recurrence: recurrent Active/Remission status: currently active Major depression episode severity: unspecified Qualified Code(s): F33.9 - Major depressive disorder, recurrent, unspecified Plan: Continue Bupropion 300 mg Q AM and Mirtazapine 15 mg Q HS Follow up with psychiatry as scheduled (12) Overweight (BMI 25.0-29.9): Code(s): E66.3 - Overweight Plan: Reinforced diet/exercise as tolerated/lose weight Plan Follow up in 4 months Orders: Orders Comprehensive [place]. Panel Fast 4 Months E78.00 - Pure hypercholesterolemia, unspecified Lipid Panel 4 Months E78.00 - Pure hypercholesterolemia, unspecified Complete Blood Count Auto Diff 4 Months D64.9 - Anemia, unspecified TSH reflex Free T4 4 Months E78.00 - Pure hypercholesterolemia, unspecified Vitamin D 25-OH Total 4 Months E55.9 - Vitamin D deficiency, unspecified Medications: New ezetimibe 10 mg PO DAILY 30 days 30 tabs 3RF Coding Level of Care Code Est Pt Level 4 (05971) Diagnoses Pure hypercholesterolemia E78.00 Orthostatic dizziness R42 Benign essential hypertension I10 Migraine without status migrainosus, not intractable, unspecified migraine type G43.909 Migraine type: unspecified Status migrainosus presence: without status migrainosus Intractability: not intractable Elevated LFTs R79.89 Vitamin D deficiency E55.9 Lumbar degenerative disc disease M51.36 Benign prostatic hyperplasia with urinary frequency N40.1; R35.0 Insomnia, unspecified type G47.00 Insomnia type: unspecified Anxiety F41.9 Episode of recurrent major depressive disorder, unspecified depression episode severity F33.9 Depression Type: major depressive disorder Major depression recurrence: recurrent Active/Remission status: currently active Major depression episode severity: unspecified Overweight (BMI 25.0-29.9) E66.3
[2024-01-04 09:12] VITALS: BP 120/64; PULSE 68; O2SAT 96; BMI 27.9
== END 2024-01-04 09:34 | disposition home or self-care (01) ==
PROVIDERS: PCP Internal Medicine; Visit Provider Internal Medicine
DX: E78.00 Pure hypercholesterolemia, unspecified (principal); F33.9 Major depressive disorder, recurrent, unspecified; R42 Dizziness and giddiness; I10 Essential (primary) hypertension; G43.909 Migraine, unspecified, not intractable, without status migrainosus; R79.89 Other specified abnormal findings of blood chemistry; E55.9 Vitamin D deficiency, unspecified; M51.36 Other intervertebral disc degeneration, lumbar region; N40.1 Benign prostatic hyperplasia with lower urinary tract symptoms; R35.0 Frequency of micturition; G47.00 Insomnia, unspecified
CPT/HCPCS: 99214

== ENCOUNTER 2024-01-06 08:34 | Outpatient (AMB) | payer MEDICARE, SELFPAY ==
--- NOTE | 2024-01-06 08:34 | A.OFFVIS_ITS ---
Intake Visit Reasons: 2m med review(Fesoterodine) Intake Note: Patient is Present for Telephone Follow Up Urology Med: Tamsulosin, Oxybutynin Antibiotic Allergy: Cipro, Azithromycin Blood Thinner: None Securities Teller Required: No Accompanied by: Self / Same As Patient Allergies azithromycin [AZITHROMYCIN] Allergy (Unknown, Verified 01/06/24 08:35) HEARTBURN, stomach upset ciprofloxacin [From CIPRO] Allergy (Unknown, Verified 01/06/24 08:35) STOMACH UPSET atorvastatin Adverse Reaction (Intermediate, Verified 01/06/24 08:35) exhaustion, fatigue Medication List - Last Reconciled 01/06/24 by Moi Tellez MD baclofen 20 mg PO TID PRN bupropion HCl XL 300 mg PO QAM [id number] 50-325-40 mg 1 cap PO Q4H PRN carisoprodol (Soma) 350 mg PO TID PRN cholecalciferol (vitamin D3) 50 mcg PO DAILY 90 days clotrimazole-betamethasone 1-0.05 % 1 appl topical BID PRN diazepam 5 mg PO DAILY PRN duloxetine 60 mg PO DAILY ezetimibe 10 mg PO DAILY 30 days fesoterodine ER 4 mg PO DAILY 90 days gabapentin 1,600 mg PO BID hydroxyzine HCl 25 mg PO QID PRN magnesium oxide 400 mg PO BEDTIME 30 days mirtazapine (Remeron) 15 mg PO BEDTIME tamsulosin 0.8 mg PO DAILY vitamin B complex 1 tab PO DAILY HPI Comments Details: Kiana is a pleasant male. He is a patient of Dr. Villegas. He seen for the following urologic conditions - lower urinary tract symptoms - primarily bladder instability Telemedicine Evaluation 15 min Consultation [employer] Maria G Video Follow-up from trial anticholinergic Toviaz trial Was effective Has reduce bladder irritants Would like to continue Six-month prescription provided Follow-up office PVR Lower urinary tract symptoms Progressive, prior PVR 80 cc, somewhat incomplete bladder emptying Did not think terazosin 5 mg more helpful than tamsulosin Imaging not performed PSA 03/08 1.5 Prior medications tadalafil, oxybuytinin - dry mouth PFSH Medical History Overweight (BMI 25.0-29.9) Benign prostatic hyperplasia with urinary frequency Lumbar degenerative disc disease Vitamin D deficiency Pure hypercholesterolemia Benign essential hypertension Cellulitis of knee, left Knee injury Surgical History History of colonoscopy History of surgery History of surgery Family History Mother Arthritis Acute cataract Glaucoma Father Heart disease Other Substance use disorder Social History Housing: House Alcohol intake: former Patient Tobacco Use Status: Former Tobacco user e-Cigarette/Vaping Use: Never Used Second Hand Smoke Exposure: No service: No Current occupational status: disabled Cognitive needs: No Hearing needs: No Vision needs: Yes (glasses) Review of Systems Const All systems reviewed & are unremarkable except as noted in HPI and below Reports no additional complaints Resp Reports no additional complaints GI Reports no additional complaints Reports as per HPI Musc Reports no additional complaints Physical Exam Telemedicine evaluation Appropriate responses Regular breathing rate and rhythm HEENT Head: Yes normal to inspection Ears: hearing grossly normal bilaterally Eyes General: appearance normal, both eyes and all related structures Neck Neck: Yes normal visual inspection Chest Chest palpation & inspection: normal inspection of the chest Resp Effort & Inspection: normal respiratory effort and able to speak in complete sentences Telehealth Telehealth Telehealth Platform: [employer] Location of provider rendering services: practice address Location of patient: address on file Patient Identification confirmed using: Name, : Yes Telehealth method: video Patient verbally consented to treatment: Yes Patient verbally consented to billing insurance company: Yes Patient informed of any privacy concerns related to visit: Yes Minutes spent on Phone/Video with Pt.: 15 Assessment & Plan Assessment & Plan (1) Bladder instability: Code(s): N32.89 - Other specified disorders of bladder Category: Medical Plan Six-month follow-up office PVR Medications: Changed From fesoterodine ER 4 mg PO DAILY 30 days 30 tabs 1RF N32.89 - Other specified disorders of bladder To fesoterodine ER 4 mg PO DAILY 90 days 90 tabs 1RF N32.89 - Other specified disorders of bladder Patient Instructions: Imaging studies, laboratory and physical exam results were discussed and reviewed in detail. No major barriers to patient understanding were identified. An opportunity to ask questions regarding the treatment plan was provided. All questions were answered. The patient expressed understanding and agreement with the above treatment plan. The patient is aware they should contact our office by phone for worsening of their current condition or the appearance of new urologic symptoms. Compliance is encouraged with any medications and followup testing that is ordered. It is a privilege to participate in the urologic care of your patient. If you have any questions or concerns regarding treatment for the above conditions, or other urologic issues, please do not hesitate to contact me. The office telephone contact is [phone]. This note is constructed using voice recognition software. While every effort has been made to ensure accuracy health inspector errors may have been included. Yours sincerely, Dr Moi Tellez MD, [facility] - Urology Providers of Expert, Compassionate Care for the Genitourinary System Coding Level of Care Code Tele Est Pt Level 3 (02302) Diagnoses Bladder instability N32.89
== END 2024-01-06 09:05 | disposition home or self-care (01) ==
LOC: HO.HUSH 08:34
PROVIDERS: PCP Internal Medicine; Visit Provider Urology
DX: N32.89 Other specified disorders of bladder (principal)
CPT/HCPCS: 99213

== ENCOUNTER → 2024-01-06 08:34 | Outpatient (BNVA) | payer MEDICARE, SELFPAY | PROVIDERS: PCP Internal Medicine; Visit Provider Urology ==

== ENCOUNTER 2024-05-02 08:34 | Outpatient (REF) | payer MEDICARE, SELFPAY ==
[2024-05-02 10:17] LABS: MANUAL DIFF FLAG NO
[2024-05-02 10:23] LABS: Basophils Absolute Auto 0.1 X10*3/uL (0.0-0.2); Basophils Percent Auto 0.8 % (0-2); Eosinophils Absolute Auto 0.5 X10*3/uL (0.0-0.4); Eosinophils Percent Auto 5.5 % (0-4); Hematocrit 42.7 % (42.0-52.0); Hemoglobin 14.3 g/dl (14.0-18.0); Imm Gran Abs Auto 0.03 X10*3/uL (0.00-0.03); Imm Gran Pct Auto 0.4 % (0.0-0.4); Lymphocytes Absolute Auto 2.1 X10*3/uL (1.2-4.9); Lymphocytes Percent Auto 25.5 % (20-40); Mean Corpuscular HGB Conc 33.5 g/dl (31.0-36.0); Mean Corpuscular Hemoglobin 30.1 pg (27.0-33.0); Mean Corpuscular Volume 89.9 fL (80.0-98.0); Mean Platelet Volume 10.4 fL (9.4-12.4); Monocytes Absolute Auto 0.8 X10*3/uL (0.1-1.2); Monocytes Percent Auto 9.5 % (2-11); Neutrophils Absolute Auto 4.9 x10*3/uL (2.0-8.3); Neutrophils Percent Auto 58.3 % (45-73); Platelet Count 243 X10*3/uL (160-400); Red Blood Count 4.75 X10*6/uL (4.60-5.80); Red Cell Distribution Width 13.2 % (11.0-16.0); White Blood Count 8.4 X10*3/uL (4.8-10.8)
[2024-05-02 11:10] LABS: Alanine Aminotransferase 53 U/L (0-40); Albumin Level 3.9 g/dL (3.5-5.0); Alkaline Phosphatase 67 U/L (39-117); Anion Gap 10 (12-20); Aspartate Amino Transferase 37 U/L (5-37); Bilirubin Total 0.4 mg/dL (0.0-1.0); Blood Urea Nitrogen 14 mg/dL (9-16); Calcium 9.1 mg/dL (8.4-10.2); Carbon Dioxide 28 mmol/L (22-29); Chloride 104 mmol/L (96-108); Cholesterol 231 mg/dL (<200); Estimated Glomerular Filt Rate > 60; Glucose Fasting 93 mg/dL (60-99); HDL Cholesterol 40 mg/dL (>40); LDL Cholesterol Calculated 172 mg/dL (<100); Potassium 4.2 mmol/L (3.3-5.1); Sodium 138 mmol/L (135-145); Triglycerides 98 mg/dL (<150)
[2024-05-02 11:11] LABS: TSH reflex Free T4 0.53 uIU/mL (0.32-4.0); Vitamin D 25-OH Total 88.2 ng/mL (>30)
== END 2024-05-02 08:35 | disposition home or self-care (01) ==
LOC: HO.HMGCLDS 08:34
PROVIDERS: PCP Internal Medicine; Visit Provider Internal Medicine
DX: D64.9 Anemia, unspecified (principal); E78.00 Pure hypercholesterolemia, unspecified; E55.9 Vitamin D deficiency, unspecified
CPT/HCPCS: 36415; 80053; 80061; 82306; 84443; 85025

== ENCOUNTER 2024-05-11 10:32 | Outpatient (AMB) | payer MEDICARE, SELFPAY ==
[2024-05-11 10:33] VITALS: BP 106/68; PULSE 85; O2SAT 96; BMI 28.0
--- NOTE | 2024-05-11 10:33 | A.OFFPC_ITS ---
Vital Signs 05/11/24 10:33 Height 6 ft Weight 206 lb 4 oz BMI 28.0 BP 106/68 Blood Pressure Location Lt brachial Position Sitting Pulse 85 Pulse Source Pulse Oximeter Pulse Oximetry (%) 96 Oxygen Delivery Method Room Air Intake Visit Reasons: hyperlipidemia Perfusionist Required: No Accompanied by: Self / Same As Patient Allergies azithromycin [AZITHROMYCIN] Allergy (Unknown, Verified 05/11/24 11:10) HEARTBURN, stomach upset ciprofloxacin [From CIPRO] Allergy (Unknown, Verified 05/11/24 11:10) STOMACH UPSET atorvastatin Adverse Reaction (Intermediate, Verified 05/11/24 11:10) exhaustion, fatigue ezetimibe Adverse Reaction (Intermediate, Verified 05/11/24 11:21) weakness, myalgia rosuvastatin Adverse Reaction (Intermediate, Verified 05/11/24 11:21) weakness, dizziness, myalgia Medication List - Last Reconciled 05/11/24 by Jun Villegas MD baclofen 20 mg PO TID PRN bupropion HCl XL 300 mg PO QAM [id number]-[id number] 50-325-40 mg 1 cap PO Q4H PRN carisoprodol (Soma) 350 mg PO TID PRN cholecalciferol (vitamin D3) 50 mcg PO DAILY 90 days clotrimazole-betamethasone 1-0.05 % 1 appl topical BID PRN diazepam 5 mg PO DAILY PRN duloxetine 60 mg PO DAILY fesoterodine ER 4 mg PO DAILY 90 days gabapentin 1,600 mg PO BID hydroxyzine HCl 25 mg PO QID PRN magnesium oxide 400 mg PO BEDTIME 30 days mirtazapine (Remeron) 15 mg PO BEDTIME tamsulosin (Flomax) 0.8 mg (2 x 0.4 mg) PO DAILY 90 days vitamin B complex 1 tab PO DAILY Tobacco use date assessed: 05/11/24 Dental Screening Dental Screen Date: 05/11/24 Did you have a dental visit in the last 12 months?: Yes Did you have a dental problem in the last 6 months where you did not have access to dental care?: No Was dental information given to patient?: Patient has dentist HPI hyperlipidemia HPI Details Patient comes in today for his follow up visit States that he feels okay He denies any headaches or dizziness - states that his dizziness has gradually cleared up since he was taken off his previous Rx of Losartan and Atorvastatin and is now completely gone He denies any chest pains, no SOB No nausea/vomiting, no abdominal pain No change in bowel habits noted Needs his Carisoprodol Rx refilled today Had his follow up labs done last week - to discuss his results States that he has tried doubling up on his OTC Red Yeast Rice tablets over the past few weeks to try to see if these can help get his cholesterol numbers down more as he was not able to tolerate Atorvastatin, Rosuvastatin and even Ezetimibe over the past few months [facility] Medical History Overweight (BMI 25.0-29.9) Benign prostatic hyperplasia with urinary frequency Lumbar degenerative disc disease Vitamin D deficiency Pure hypercholesterolemia Benign essential hypertension Cellulitis of knee, left Knee injury Surgical History History of colonoscopy History of surgery History of surgery Family History Mother Arthritis Acute cataract Glaucoma Father Heart disease Other Substance use disorder Social History Housing: House Alcohol intake: former Patient Tobacco Use Status: Former Tobacco user e-Cigarette/Vaping Use: Never Used Second Hand Smoke Exposure: No service: No Current occupational status: disabled Cognitive needs: No Hearing needs: No Vision needs: Yes (glasses) Questionnaire PHQ-9 Over the last 2 weeks, how often have you been bothered by any of the following problems? 1. Little interest or pleasure in doing things: several days 2. Feeling down, depressed, or hopeless: nearly every day 3. Trouble falling or staying asleep, or sleeping too much: several days 4. Feeling tired or having little energy: nearly every day 5. Poor appetite or overeating: nearly every day 6. Feeling bad about yourself - or that you are a failure or have let yourself or your family down: more than half the days 7. Trouble concentrating on things, such as reading the newspaper or watching television: nearly every day 8. Moving or speaking so slowly that other people could have noticed. Or the opposite - being so fidgety or restless that you have been moving around a lot more than usual: not at all 9. Thoughts that you would be better off or of hurting yourself in some way: not at all Total score: 16 Depression Screening Interpretation: Positive Depression Screening Follow-up: E xisting condition and In treatment Depression Screening Done: Yes [id number] - PHQ-9 Billing: Yes Source: Developed by Drs. Justin Loya, Jacqueline Araujo, Anastacio Pinto and colleagues, with an educational kg from [email or web address]. Thrive Questionnaire Date Thrive assessed: 05/11/24 I am a: Patient What is your living situation today?: I have a steady place to live Within the past 12 months, did the food you bought not last and you didn't have the money to get more?: Never true Within the past 12 months, did you worry whether your food would run out before you got money to buy more?: Never true Do you have trouble paying for medicines?: No Do you have trouble getting transportation to medical appointments?: No Do you have trouble paying your heating and electricity bill?: No Do you have trouble taking care of your child, family member or friend?: No Do you have trouble with day-to-day activities such as bathing, preparing meals, shopping, managing finances, etc.?: No Are you currently unemployed and looking for a job?: I choose not to answer this question Are you interested in more education?: No Please select the resources that you would like help with: None Currently or been in a relationship where the following occur: No concerns reported THRIVE Score: 0 AUDIT C Alcohol Use Questionnaire (AUDIT-C) 1. How often do you have a drink containing alcohol?: Never 3. How often do you have six or more drinks on one occasion?: Never Total Score: 0 Score Reviewed/Action Taken: Yes REED-7 AMB Questionnaire REED-7 Date REED - 7 assessed: 05/11/24 Feeling nervous, anxious, or on edge: 3 = Nearly every day Not being able to stop or control worryin = Nearly every day Worrying too much about different things: 3 = Nearly every day Trouble relaxin = Nearly every day Being so restless that it is hard to sit still: 0 = Not at all Becoming easily annoyed or irritable: 3 = Nearly every day Feeling afraid as if something awful might happen: 1 = Several days Total REED-7 score (0-4 normal; 5-9 mild; 10-14 moderate; 15-21 severe): 16 Source: Developed by Drs. Justin Loya, Jacqueline Araujo, Anastacio Pinto and colleagues, with an educational kg from [email or web address]. Review of Systems Const Denies chills, Denies fatigue, Denies fever(s) and Denies headache(s) ENT Denies dysphagia, Denies dizziness, Denies otalgia, Denies headache(s), Denies neck pain, Denies odynophagia and Denies sore throat Card Denies chest pain, Denies palpitations and Denies dyspnea Resp Denies cough and Denies dyspnea GI Denies abdominal pain, Denies constipation, Denies dysphagia, Denies heartburn, Denies diarrhea, Denies nausea, Denies odynophagia and Denies vomiting Denies dysuria, Denies nocturia and Denies urinary frequency Musc Reports back pain (over the lower back - chronic) and Denies neck pain Skin/Breast Denies rash Neuro Denies dizziness and Denies headache(s) Psych Reports depression Endo Denies fatigue and Denies palpitations Physical exam (Primary Care) Vital Signs: Last Vital Signs Pulse 85 05/11/24 10:33 BP 106/68 05/11/24 10:33 Pulse Ox 96 05/11/24 10:33 Oxygen Delivery Method Room Air 05/11/24 10:33 BMI result Body Mass Index 28.0 Tobacco/Smoking Status: Tobacco use Status Tobacco use date assessed 05/11/24 05/11/24 10:39 Patient Tobacco Use Status Former Tobacco user 05/11/24 10:39 e-Cigarette/Vaping Use Never Used 05/11/24 10:39 PHQ-9: PHQ-9 Score PHQ-9: Total score 16 05/11/24 11:19 Depression Screening Interpretation: Positive Depression Screening Follow-up: Existing condition and In treatment Thrive Assessment: Date of Thrive Assessment Date Thrive assessed 05/11/24 05/11/24 10:39 Currently or been in a relationship where the following occur: No concerns reported Const General: no acute distress and alert HENMT Ears: TM's normal bilaterally and EAC's normal Throat: Yes posterior oropharynx normal and Yes tonsils normal (no TP congestion) Neck Neck: Yes no lymphadenopathy and Yes supple Thyroid: Thyroid normal Resp Auscultation: clear to auscultation bilaterally, no rales and no wheezes Cardio Rate: regular rate Rhythm: regular rhythm Heart sounds: no murmurs GI Palpation (GI): Soft to palpation and nontender Auscultation: normal bowel sounds General: Yes no CVA tenderness Back/Spine/Pelvis Back: no CVA tenderness Thoracic/Lumbar Spine: lumbar spinal tenderness Skin Rashes: no rashes Extrem General: Yes no clubbing, cyanosis or edema Results Reviewed Results Reviewed: Laboratory Tests 05/02/24 08:43 WBC 8.4 Hgb 14.3 Hct 42.7 Plt Count 243 Sodium 138 Potassium 4.2 Creatinine 1.10 Estimated GFR > 60 Fasting Glucose 93 Calcium 9.1 AST 37 ALT 53 H Cholesterol 231 H LDL Cholesterol, Calc 172 H HDL Cholesterol 40 L 25-OH Vitamin D Total 88.2 TSH 0.53 Assessment and Plan Assessment & Plan (1) Pure hypercholesterolemia: Code(s): E78.00 - Pure hypercholesterolemia, unspecified Plan: Results of his labs done last week reviewed and discussed with patient - he is advised his cholesterol numbers are still elevated and are mostly unchanged from previous Reinforced low-cholesterol diet He has NOT been able to tolerate BOTH Atorvastatin and Rosuvastatin in the past and more recently, Ezetimibe 10 mg QD States that he has doubled up on his OTC Red Yeast Rice for the past few weeks to hopefully get his numbers down a little more but it did not appear to have helped much as his numbers are similar (high) to where they were 3 to 4 months ago Will now try to start him on the newer PCSK9 inhibitors - will try Repatha 140 mg SQ every 2 weeks Will recheck his labs and fasting lipids in 4 months for follow-up (2) Orthostatic dizziness: Code(s): R42 - Dizziness and giddiness Plan: RESOLVED - patient feels that his symptoms have improved a lot since he stopped taking his Atorvastatin and Losartan, which he believes were responsible for a lot of his symptoms back when he was still on them States that these symptoms are now completely gone and have not recurred in a couple of months now Head CT done back in August 2022 came out negative for acute changes Bilateral carotid US done back in November 2022, Holter monitor and echocardiogram done in December 2022 have all come back normal with no significant abnormalities or findings Tilt table testing done at [facility] last year (2022) also came out normal Review of patient's past records show that he has been consistently bradycardic in the past, with EKG done back in 2006 showing bradycardia as the only pertinent finding back then Random cortisol level done back in February 2023 also came back normal He was seen by both neurology and cardiology for further evaluation - neurology recommended continuing observation as his symptoms appear to have improved significantly with cessation of his Losartan and Atorvastatin Follow up with neurology as needed (3) Benign essential hypertension: Code(s): I10 - Essential (primary) hypertension Plan: Reinforced low sodium diet - goal is systolic BP of 120 mm or less He is currently on NO MEDS for his BP He was on Losartan 100 mg alternating with 50 mg every other day but he ultimately stopped taking this a few months ago as he felt that the medication was contributing to his symptoms of fatigue, recurrent dizziness and weakness States that all of these improved upon cessation of his Losartan His BP also appears to have improved a lot with his recent weight loss and has NOT needed any Rx for blood pressure so far Patient is reminded to continue monitoring his blood pressure regularly (4) Migraine: Code(s): G43.909 - Migraine, unspecified, not intractable, without status migrainosus Qualifiers: Intractability: not intractable Migraine type: unspecified Status migrainosus presence: without status migrainosus Qualified Code(s): G43.909 - Migraine, unspecified, not intractable, without status migrainosus Plan: Stable Reinforced avoidance of migraine triggers Continue Fioricet 50-325-40 mg PRN Follow up with neurology as scheduled (5) Elevated LFTs: Code(s): R79.89 - Other specified abnormal findings of blood chemistry Plan: His LFTs have returned back to normal with his weight loss but his serum ALT level is again elevated on his recent labs Will continue to monitor his LFTs regularly (6) Vitamin D deficiency: Code(s): E55.9 - Vitamin D deficiency, unspecified Plan: Continue Vitamin D3 2000 units QD (7) Lumbar degenerative disc disease: Code(s): M51.36 - Other intervertebral disc degeneration, lumbar region Plan: Lumbar spine MRI done back on 07/06/2018 revealed (+) lumbar spondylosis that is essentially unchanged from his findings on 10/02/2017 - there were left foraminal disc protrusions abutting the exiting left nerve roots along L3 to S1 Reinforced activity and weight-lifting restrictions States that he has been to pain management in the past; will refer back to pain management if needed Continue Duloxetine 60 mg QD and Gabapentin 1600 mg BID He was also on Baclofen but this was switched over to Carisoprodol 350 mg TID PRN (Rx refilled) as he did not feel that Baclofen helped much (8) Benign prostatic hyperplasia with urinary frequency: Code(s): N40.1 - Benign prostatic hyperplasia with lower urinary tract symptoms; R35.0 - Frequency of micturition Plan: Continue Tamsulosin 0.4 mg Q HS He was also started on Oxybutynin ER 5 mg QD to help with his urinary symptoms but he appears to have stopped taking this at some point Follow up with urology as scheduled (9) Insomnia: Code(s): G47.00 - Insomnia, unspecified Qualifiers: Insomnia type: unspecified Qualified Code(s): G47.00 - Insomnia, unspecified Plan: Sleep hygiene reinforced Current Rx, including Diazepam, help with his sleep at night (10) Anxiety: Code(s): F41.9 - Anxiety disorder, unspecified Plan: Continue Hydroxyzine 25 mg QID PRN and Diazepam 5 mg QD PRN He is also on Bupropion XL 300 mg Q AM Follow up with psychiatry as scheduled (11) Depression: Code(s): F32.A - Depression, unspecified Qualifiers: Active/Remission status: currently active Depression Type: major depressive disorder Major depression episode severity: unspecified Major de pression recurrence: recurrent Qualified Code(s): F33.9 - Major depressive disorder, recurrent, unspecified Plan: Continue Bupropion XL 300 mg Q AM, Duloxetine 60 mg QD and Mirtazapine 15 mg Q HS Follow up with psychiatry as scheduled (12) Overweight (BMI 25.0-29.9): Code(s): E66.3 - Overweight Plan: Reinforced diet/exercise as tolerated/lose weight Plan Follow up in 4 months Orders: Orders Comprehensive [place]. Panel Fast 4 Months E78.00 - Pure hypercholesterolemia, unspecified Lipid Panel 4 Months E78.00 - Pure hypercholesterolemia, unspecified UA CC w/rflx Micro + Cult 4 Months R30.0 - Dysuria TSH reflex Free T4 4 Months E78.00 - Pure hypercholesterolemia, unspecified Vitamin D 25-OH Total 4 Months E55.9 - Vitamin D deficiency, unspecified Complete Blood Count Auto Diff 4 Months D64.9 - Anemia, unspecified Medications: New Repatha SureClick (evolocumab) 140 mg subcut Q2W 2 mL 3RF high cholesterol levels 4 weeks NS E78.00 - Pure hypercholesterolemia, unspecified Refilled carisoprodol (Soma) 350 mg PO TID PRN 90 tabs 0RF muscle pain/low back pain Coding Level of Care Code Est Pt Level 4 (97585) Complex EM visit Add On G2211 Diagnoses Pure hypercholesterolemia E78.00 Orthostatic dizziness R42 Benign essential hypertension I10 Migraine without status migrainosus, not intractable, unspecified migraine type G43.909 Intractability: not intractable Migraine type: unspecified Status migrainosus presence: without status migrainosus Elevated LFTs R79.89 Vitamin D deficiency E55.9 Lumbar degenerative disc disease M51.36 Benign prostatic hyperplasia with urinary frequency N40.1; R35.0 Insomnia, unspecified type G47.00 Insomnia type: unspecified Anxiety F41.9 Episode of recurrent major depressive disorder, unspecified depression episode severity F33.9 Active/Remission status: currently active Depression Type: major depressive disorder Major depression episode severity: unspecified Major depression recurrence: recurrent Overweight (BMI 25.0-29.9) E66.3
== END 2024-05-11 11:22 | disposition home or self-care (01) ==
PROVIDERS: PCP Internal Medicine; Visit Provider Internal Medicine
DX: E78.00 Pure hypercholesterolemia, unspecified (principal); F33.9 Major depressive disorder, recurrent, unspecified; R42 Dizziness and giddiness; I10 Essential (primary) hypertension; G43.909 Migraine, unspecified, not intractable, without status migrainosus; R79.89 Other specified abnormal findings of blood chemistry; E55.9 Vitamin D deficiency, unspecified; M51.36 Other intervertebral disc degeneration, lumbar region; N40.1 Benign prostatic hyperplasia with lower urinary tract symptoms; R35.0 Frequency of micturition; G47.00 Insomnia, unspecified; F41.9 Anxiety disorder, unspecified

== ENCOUNTER → 2024-05-11 10:32 | Outpatient (BNVA) | payer MEDICARE, SELFPAY | PROVIDERS: PCP Internal Medicine; Visit Provider Internal Medicine | DX: E78.00 Pure hypercholesterolemia, unspecified (principal); R42 Dizziness and giddiness; I10 Essential (primary) hypertension; R79.89 Other specified abnormal findings of blood chemistry; E55.9 Vitamin D deficiency, unspecified; M51.36 Other intervertebral disc degeneration, lumbar region; N40.1 Benign prostatic hyperplasia with lower urinary tract symptoms; R35.0 Frequency of micturition; F41.9 Anxiety disorder, unspecified; F33.9 Major depressive disorder, recurrent, unspecified | CPT/HCPCS: 99212 ==

== ENCOUNTER 2024-09-02 10:06 | Outpatient (AMB) | payer MEDICARE, SELFPAY ==
--- NOTE | 2024-09-02 10:06 | MHC.OFFVIS ---
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 He is a patient of Dr. Villegas. He seen for the following urologic conditions - lower urinary tract symptoms - primarily bladder instability Has continued with Toviaz for bladder urgency Six-month prescription provided Follow-up office PVR Insurance company has changed his coverage. Switch from Toviaz to solifenacin. Lower urinary tract symptoms Progressive, prior PVR 80 cc, somewhat incomplete bladder emptying Did not think terazosin 5 mg more helpful than tamsulosin Imaging not performed PSA 03/08 1.5 Prior medications tadalafil, oxybuytinin - dry mouth PFSH Medical History Overweight (BMI 25.0-29.9) Benign prostatic hyperplasia with urinary frequency Lumbar degenerative disc disease Vitamin D deficiency Pure hypercholesterolemia Benign essential hypertension Cellulitis of knee, left Knee injury Surgical History History of colonoscopy History of surgery History of surgery Family History Mother Arthritis Acute cataract Glaucoma Father Heart disease Other Substance use disorder Social History Housing: House Alcohol intake: former Patient Tobacco Use Status: Former Tobacco user e-Cigarette/Vaping Use: Never Used Second Hand Smoke Exposure: No service: No Current occupational status: disabled Cognitive needs: No Hearing needs: No Vision needs: Yes (glasses) Review of Systems Const Denies chills and Denies fever(s) Card Reports no additional complaints and Denies syncope Resp Denies cough GI Denies abdominal pain and Denies heartburn Reports as per HPI and Denies change in libido Neuro Denies syncope Psych Denies change in libido Endo Denies change in libido Physical Exam Const General: cooperative, healthy appearing, comfortable and no acute distress Orientation/consciousness: patient oriented x3 HEENT Face and sinus: Yes normal facial exam Mouth: moist mucous membranes Neck Neck: Yes normal visual inspection, Yes full ROM and Yes trachea midline Chest Chest palpation & inspection: normal inspection of the chest Resp Effort & Inspection: normal respiratory effort, able to speak in complete sentences and no respiratory distress GI Inspection: Yes normal to inspection Back/Spine/Pelvis Cervical Spine: normal cervical lordosis Thoracic/Lumbar Spine: thoracic and lumbar spine normal to inspection Skin General skin exam: no rashes or lesions noted Neuro General: patient oriented x3, gait normal, tone normal and moves all extremities Extrem General: Yes normal to inspection and Yes capillary refill normal Office Procedures Post Void Residual Post Residual Void Post Void Residual (PVR): 34 [id number] Void Residual by ultrasound Results AMB Urinalysis, Automated UA Leukoctes 0 Rochelle/uL Last Edit by HAKAN Rose on 09/02/24 10:24 UA Nitrite Negative Last Edit by HAKAN Rose on 09/02/24 10:24 UA Urobilinogen 0.2 mg/dL Last Edit by HAKAN Rose on 09/02/24 10:24 UA Protein 0 mg/dL Last Edit by HAKAN Rose on 09/02/24 10:24 UA pH 6.5 Last Edit by HAKAN Rose on 09/02/24 10:24 UA Blood 0 Chang/uL Last Edit by HAKAN Rose on 09/02/24 10:24 UA Specific Ackworth 1.010 Last Edit by HAKAN Rose on 09/02/24 10:24 UA Ketone Negative Last Edit by HAKAN Rose on 09/02/24 10:24 UA Bilirubin 0 mg/dL Last Edit by HAKAN Rose on 09/02/24 10:24 UA Glucose 0 mg/dL Last Edit by Donna Kingston [facility] on 09/02/24 10:24 Results Reviewed Results Reviewed: Laboratory Last Values Urine pH (Auto) 6.5 09/02/24 10:24 Specific Ackworth (Auto) 1.010 09/02/24 10:24 Urine Protein (Auto) 0 mg/dL 09/02/24 10:24 Glucose (UA)(Auto) 0 mg/dL 09/02/24 10:24 Urine Ketones (Auto) Negative 09/02/24 10:24 Urine Blood (Auto) 0 Chang/uL 09/02/24 10:24 Urine Nitrite (Auto) Negative 09/02/24 10:24 Urine Bilirubin (Auto) 0 mg/dL 09/02/24 10:24 Urine Urobilinogen (Auto) 0.2 mg/dL 09/02/24 10:24 Leukocyte Esterase (Auto) 0 Rochelle/uL 09/02/24 10:24 Assessment & Plan Assessment & Plan (1) Urinary frequency: Code(s): R35.0 - Frequency of micturition Category: Medical (2) Bladder instability: Code(s): N32.89 - Other specified disorders of bladder Category: Medical (3) Benign prostatic hyperplasia with urinary frequency: Code(s): N40.1 - Benign prostatic hyperplasia with lower urinary tract symptoms; R35.0 - Frequency of micturition Category: Medical Plan Switch medications Orders: Orders AMB Urinalysis Automated Today Z13.9 - Encounter for screening, unspecified Medications: New solifenacin 5 mg PO DAILY 90 tabs 1RF 90 days N32.81 - Overactive bladder, R35.0 - Frequency of micturition Discontinued fesoterodine ER Discontinued Reason: Patient Completed Course 4 mg PO DAILY 90 days 90 tabs 1RF N32.89 - Other specified disorders of bladder Patient Instructions: Imaging studies, laboratory and physical exam results were discussed and reviewed in detail. No major barriers to patient understanding were identified. An opportunity to ask questions regarding the treatment plan was provided. All questions were answered. The patient expressed understanding and agreement with the above treatment plan. The patient is aware they should contact our office by phone for worsening of their current condition or the appearance of new urologic symptoms. Compliance is encouraged with any medications and followup testing that is ordered. It is a privilege to participate in the urologic care of your patient. If you have any questions or concerns regarding treatment for the above conditions, or other urologic issues, please do not hesitate to contact me. The office telephone contact is [phone]. This note is constructed using voice recognition software. While every effort has been made to ensure accuracy delivery supervisor errors may have been included. Yours sincerely, Dr Moi Tellez MD, [facility] - Urology Providers of Expert, Compassionate Care for the Genitourinary System Coding Level of Care Code Est Pt Level 3 (64374) Diagnoses Urinary frequency R35.0 Bladder instability N32.89 Benign prostatic hyperplasia with urinary frequency N40.1; R35.0 CPT Codes Post Residual Void - PVR CPT Code: 54396-Vkkd Void Residual by ultrasound ([id number])
== END 2024-09-02 10:48 | disposition home or self-care (01) ==
PROVIDERS: PCP Internal Medicine; Visit Provider Urology
DX: N40.1 Benign prostatic hyperplasia with lower urinary tract symptoms (principal); R35.0 Frequency of micturition; N32.89 Other specified disorders of bladder; Z13.9 Encounter for screening, unspecified
CPT/HCPCS: 99213

== ENCOUNTER → 2024-09-02 10:06 | Outpatient (BNVA) | payer MEDICARE, SELFPAY | PROVIDERS: PCP Internal Medicine; Visit Provider Urology | DX: N40.1 Benign prostatic hyperplasia with lower urinary tract symptoms (principal); R35.0 Frequency of micturition; N32.89 Other specified disorders of bladder | CPT/HCPCS: 51798; 81003; 99212 ==

== ENCOUNTER 2024-09-07 09:33 | Outpatient (REF) | payer MEDICARE, SELFPAY ==
[2024-09-07 13:18] LABS: Appearance Urine Clear; Color Urine Yellow; Glucose Urine UA Negative (Negative); Leukocyte Esterase Urine Negative (Negative); Nitrite Urine Negative (Negative); PH 6.5 (5.0-9.0); Specific Gravity - Urine 1.015 (1.005-1.025); Urine Blood Negative (Negative); Urine Ketones Trace mg/dL (Negative); Urine Protein Negative (Neg-Trace)
[2024-09-07 13:39] LABS: MANUAL DIFF FLAG NO
[2024-09-07 14:01] LABS: Basophils Absolute Auto 0.1 X10*3/uL (0.0-0.2); Basophils Percent Auto 0.8 % (0-2); Eosinophils Absolute Auto 0.3 X10*3/uL (0.0-0.4); Eosinophils Percent Auto 3.6 % (0-4); Hematocrit 40.3 % (42.0-52.0); Hemoglobin 13.5 g/dl (14.0-18.0); Imm Gran Abs Auto 0.03 X10*3/uL (0.00-0.03); Imm Gran Pct Auto 0.3 % (0.0-0.4); Lymphocytes Absolute Auto 2.1 X10*3/uL (1.2-4.9); Lymphocytes Percent Auto 23.7 % (20-40); Mean Corpuscular HGB Conc 33.5 g/dl (31.0-36.0); Mean Corpuscular Hemoglobin 30.3 pg (27.0-33.0); Mean Corpuscular Volume 90.6 fL (80.0-98.0); Mean Platelet Volume 10.8 fL (9.4-12.4); Monocytes Absolute Auto 0.7 X10*3/uL (0.1-1.2); Monocytes Percent Auto 7.8 % (2-11); Neutrophils Absolute Auto 5.7 x10*3/uL (2.0-8.3); Neutrophils Percent Auto 63.8 % (45-73); Platelet Count 259 X10*3/uL (160-400); Red Blood Count 4.45 X10*6/uL (4.60-5.80); Red Cell Distribution Width 13.7 % (11.0-16.0)
[2024-09-07 14:23] LABS: Alanine Aminotransferase 73 U/L (0-40); Albumin Level 3.9 g/dL (3.5-5.0); Alkaline Phosphatase 69 U/L (39-117); Anion Gap 10 (12-20); Aspartate Amino Transferase 62 U/L (5-37); Bilirubin Total 0.4 mg/dL (0.0-1.0); Blood Urea Nitrogen 15 mg/dL (9-16); Calcium 9.2 mg/dL (8.4-10.2); Carbon Dioxide 28 mmol/L (22-29); Chloride 106 mmol/L (96-108); Cholesterol 122 mg/dL (<200); Estimated Glomerular Filt Rate > 60; Glucose Fasting 84 mg/dL (60-99); HDL Cholesterol 45 mg/dL (>40); LDL Cholesterol Calculated 68 mg/dL (<100); Potassium 4.2 mmol/L (3.3-5.1); Sodium 140 mmol/L (135-145); Total Protein 7.2 g/dL (6.5-8.0); Triglycerides 47 mg/dL (<150)
[2024-09-07 14:26] LABS: TSH reflex Free T4 0.51 uIU/mL (0.32-4.0); Vitamin D 25-OH Total 75.1 ng/mL (>30)
== END 2024-09-07 09:34 | disposition home or self-care (01) ==
LOC: HO.HMGCLDS 09:33
PROVIDERS: PCP Internal Medicine; Visit Provider Internal Medicine
DX: D64.9 Anemia, unspecified (principal); E78.00 Pure hypercholesterolemia, unspecified; R30.0 Dysuria; E55.9 Vitamin D deficiency, unspecified
CPT/HCPCS: 36415; 80053; 80061; 81003; 82306; 84443; 85025

== ENCOUNTER → 2024-09-14 09:55 | Outpatient (BNVA) | payer MEDICARE, SELFPAY | PROVIDERS: PCP Internal Medicine; Visit Provider Internal Medicine | DX: E78.00 Pure hypercholesterolemia, unspecified (principal); R42 Dizziness and giddiness; I10 Essential (primary) hypertension; G43.909 Migraine, unspecified, not intractable, without status migrainosus; R79.89 Other specified abnormal findings of blood chemistry; E55.9 Vitamin D deficiency, unspecified; M51.360 Other intervertebral disc degeneration, lumbar region with discogenic back pain only; N40.1 Benign prostatic hyperplasia with lower urinary tract symptoms; R35.0 Frequency of micturition; G47.00 Insomnia, unspecified; F41.9 Anxiety disorder, unspecified; E66.3 Overweight | CPT/HCPCS: 96127; 99212 ==

== ENCOUNTER 2024-10-28 11:14 | Outpatient (AMB) | payer MEDICARE, SELFPAY ==
--- NOTE | 2024-10-28 11:05 | A.OFFVIS_ITS ---
Intake Visit Reasons: Follow up Intake Note: Patient presents follow up Dizziness/RLS medication Hydro Excavation Operator Required: No Accompanied by: Self / Same As Patient Allergies azithromycin [AZITHROMYCIN] Allergy (Unknown, Verified 10/28/24 11:05) HEARTBURN, stomach upset ciprofloxacin [From CIPRO] Allergy (Unknown, Verified 10/28/24 11:05) STOMACH UPSET atorvastatin Adverse Reaction (Intermediate, Verified 10/28/24 11:05) exhaustion, fatigue ezetimibe Adverse Reaction (Intermediate, Verified 10/28/24 11:05) weakness, myalgia rosuvastatin Adverse Reaction (Intermediate, Verified 10/28/24 11:05) weakness, dizziness, myalgia Medication List - Last Reconciled 10/28/24 by Elda Pino, V[facility] bupropion HCl XL 300 mg PO QAM 90 days uldhysvxrm-rvxllae-opeyweps 50-325-40 mg 1 cap PO Q4H PRN carisoprodol (Soma) 350 mg PO TID PRN cholecalciferol (vitamin D3) 50 mcg PO DAILY 90 days clotrimazole-betamethasone 1-0.05 % 1 appl topical BID PRN diazepam 5 mg PO TID PRN 30 days duloxetine 60 mg PO DAILY 90 days gabapentin 1,600 mg (2 x 800 mg) PO BID 30 days hydroxyzine pamoate 25 mg PO TID PRN 30 days magnesium oxide 400 mg PO BEDTIME 30 days Repatha SureClick (evolocumab) 140 mg subcut Q2W 4 weeks NS solifenacin 5 mg PO DAILY 90 days tamsulosin (Flomax) 0.8 mg (2 x 0.4 mg) PO DAILY 90 days vitamin B complex 1 tab PO DAILY HPI Comments Details: 59-yr-old male presents for f/u televideo visit for orthostatic dizziness/lightheadedness and muscle cramps. Patient denies any significant interval medical history changes. He is now being mindful to take fluids and liquid IV prior to engaging in more strenuous or prolonged physical activity, he has found this to be especially helpful in preventing cramp recurrence. He denies recent orthostatic dizziness or lightheadedness since coming off anti- HTN tx and statins and switching to Repatha. He notes that his recent LFTs were elevated. Review of previous labs shows intermittent elevated LFTs, elevated CRP. Fasting blood sugars have typically been WNL. The patient notes a family history of type 2 and type 1 diabetes. He wonders about secondary causes of elevated LFTs, as he does not take any alcohol. He had lost some weight, and again has gained some weight over the winter. Overall she tries to eat well, but notes that he can sometimes have a poor diet- especially during holidays. No recent headaches. He tried magnesium however stopped as it caused GI upset. He remains compliant with gabapentin and has p.r.n. carisoprodol. [facility] Medical History Overweight (BMI 25.0-29.9) Benign prostatic hyperplasia with urinary frequency Lumbar degenerative disc disease Vitamin D deficiency Pure hypercholesterolemia Benign essential hypertension Cellulitis of knee, left Knee injury Surgical History History of colonoscopy History of surgery History of surgery Family History Mother Arthritis Acute cataract Glaucoma Father Heart disease Other Substance use disorder Social History Housing: House Alcohol intake: former Patient Tobacco Use Status: Former Tobacco user e-Cigarette/Vaping Use: Never Used Second Hand Smoke Exposure: No service: No Current occupational status: disabled Cognitive needs: No Hearing needs: No Vision needs: Yes (glasses) Physical Exam Const General: cooperative and no acute distress Orientation/consciousness: patient oriented x3 Resp Effort & Inspection: normal respiratory effort and able to speak in complete sentences Neuro General: patient oriented x3 Cognition (Neuro): normal cognition Psych Appearance: grossly normal Mental Status: mental status grossly normal Speech and movement: Normal speech and movement present Affect: normal affect Attitude: cooperative Telehealth Telehealth Telehealth Platform: [facility] Location of provider rendering services: practice address Location of patient: address on file Patient Identification confirmed using: Name, : Yes Telehealth method: video Patient verbally consented to treatment: Yes Patient verbally consented to billing insurance company: Yes Patient informed of any privacy concerns related to visit: Yes Minutes spent on Phone/Video with Pt.: 21 Assessment & Plan Assessment & Plan (1) Restless leg syndrome: Code(s): G25.81 - Restless legs syndrome Category: Medical (2) Orthostatic dizziness: Code(s): R42 - Dizziness and giddiness Category: Medical (3) Orthostasis: Code(s): I95.1 - Orthostatic hypotension Category: Medical (4) Muscle cramps: Code(s): R25.2 - Cramp and spasm Category: Medical Plan Pt continues to feel significantly better off of Atorvastatin and Losartan. Continue to change positions slowly and use electrolyte replacement drinks, liquid IV- especially if he plans to be more active. Continue red yeast rice supplement. Continue Repatha per cardiology. Check labs, including hemoglobin A1c as Repatha has a small risk of new onset diabetes- may do it next scheduled lab draw. Advise simple strategies to optimize diet- increase fruits/vegetables. Continue gabapentin and p.r.n. carisoprodol. Discontinue Magnesium 400mg qhs prn for cramps and RLS s/s- caused GI irritation.. f/u in 12 months or sooner prn. Orders: Orders Hemoglobin A1c Today E66.3 - Overweight, E78.00 - Pure hypercholesterolemia, unspecified, I65.29 - Occlusion and stenosis of unspecified carotid artery, R79.82 - Elevated C-reactive protein (CRP), R79.89 - Other specified abnormal findings of blood chemistry, Z13.1 - Encounter for screening for diabetes mellitus CRP High Sensitivity Today E66.3 - Overweight, E78.00 - Pure hypercholesterolemia, unspecified, I65.29 - Occlusion and stenosis of unspecified carotid artery, R79.82 - Elevated C-reactive protein (CRP), R79.89 - Other specified abnormal findings of blood chemistry, Z13.1 - Encounter for screening for diabetes mellitus Erythrocyte Sedimentation Rate Today E66.3 - Overweight, E78.00 - Pure hypercholesterolemia, unspecified, I65.29 - Occlusion and stenosis of unspecified carotid artery, R79.82 - Elevated C-reactive protein (CRP), R79.89 - Other specified abnormal findings of blood chemistry, Z13.1 - Encounter for screening for diabetes mellitus Medications: Discontinued magnesium oxide may hold for loose stools Discontinued Reason: Doctor's Order 400 mg PO BEDTIME 30 days 30 tabs 6RF Coding Level of Care Code Tele Est Pt Level 4 (60235) Diagnoses Restless leg syndrome G25.81 Orthostatic dizziness R42 Orthostasis I95.1 Muscle cramps R25.2
== END 2024-11-01 07:09 | disposition home or self-care (01) ==
LOC: HO.HSMS 11:15
PROVIDERS: PCP Internal Medicine; Visit Provider Nurse Practitioner Family
DX: G25.81 Restless legs syndrome (principal); R42 Dizziness and giddiness; I95.1 Orthostatic hypotension; R25.2 Cramp and spasm
CPT/HCPCS: 99214

== ENCOUNTER 2025-01-03 09:32 | Outpatient (REF) | payer MEDICARE, SELFPAY ==
[2025-01-03 13:08] LABS: MANUAL DIFF FLAG NO
[2025-01-03 13:28] LABS: Appearance Urine Clear; Basophils Absolute Auto 0.1 X10*3/uL (0.0-0.2); Basophils Percent Auto 0.7 % (0-2); Color Urine Yellow; Eosinophils Absolute Auto 0.5 X10*3/uL (0.0-0.4); Eosinophils Percent Auto 4.1 % (0-4); Glucose Urine UA Negative (Negative); Hemoglobin 14.1 g/dl (14.0-18.0); Imm Gran Abs Auto 0.04 X10*3/uL (0.00-0.03); Imm Gran Pct Auto 0.4 % (0.0-0.4); Leukocyte Esterase Urine Negative (Negative); Lymphocytes Absolute Auto 2.8 X10*3/uL (1.2-4.9); Lymphocytes Percent Auto 25.5 % (20-40); Mean Corpuscular HGB Conc 33.6 g/dl (31.0-36.0); Mean Corpuscular Hemoglobin 29.8 pg (27.0-33.0); Mean Corpuscular Volume 88.8 fL (80.0-98.0); Mean Platelet Volume 10.4 fL (9.4-12.4); Monocytes Absolute Auto 0.9 X10*3/uL (0.1-1.2); Monocytes Percent Auto 7.9 % (2-11); Neutrophils Absolute Auto 6.7 x10*3/uL (2.0-8.3); Neutrophils Percent Auto 61.4 % (45-73); Nitrite Urine Negative (Negative); Platelet Count 316 X10*3/uL (160-400); Red Blood Count 4.73 X10*6/uL (4.60-5.80); Specific Gravity - Urine 1.015 (1.005-1.025); Urine Blood Negative (Negative); Urine Ketones Negative (Negative); Urine Protein Negative (Neg-Trace); White Blood Count 10.9 X10*3/uL (4.8-10.8)
[2025-01-03 13:53] LABS: Alanine Aminotransferase 73 U/L (0-40); Alkaline Phosphatase 78 U/L (39-117); Anion Gap 9 (12-20); Aspartate Amino Transferase 28 U/L (5-37); Bilirubin Total 0.3 mg/dL (0.0-1.0); Blood Urea Nitrogen 17 mg/dL (9-16); Calcium 8.9 mg/dL (8.4-10.2); Carbon Dioxide 26 mmol/L (22-29); Chloride 108 mmol/L (96-108); Cholesterol 132 mg/dL (<200); Estimated Glomerular Filt Rate > 60; Glucose Fasting 97 mg/dL (60-99); HDL Cholesterol 39 mg/dL (>40); LDL Cholesterol Calculated 71 mg/dL (<100); Potassium 4.5 mmol/L (3.3-5.1); Sodium 138 mmol/L (135-145); Total Protein 7.4 g/dL (6.5-8.0); Triglycerides 114 mg/dL (<150)
[2025-01-03 14:14] LABS: TSH reflex Free T4 0.64 uIU/mL (0.32-4.0); Vitamin D 25-OH Total 66.7 ng/mL (>30)
== END 2025-01-03 09:33 | disposition home or self-care (01) ==
LOC: HO.HMGCLDS 09:32
PROVIDERS: PCP Internal Medicine; Visit Provider Internal Medicine
DX: E78.00 Pure hypercholesterolemia, unspecified (principal); E55.9 Vitamin D deficiency, unspecified; D64.9 Anemia, unspecified; R30.0 Dysuria
CPT/HCPCS: 36415; 80053; 80061; 81003; 82306; 84443; 85025

== ENCOUNTER 2025-01-13 10:47 | Outpatient (AMB) | payer MEDICARE, SELFPAY ==
--- NOTE | 2025-01-13 10:51 | A.OFFPC_ITS ---
Vital Signs 01/13/25 10:52 Height 6 ft Weight 202 lb 8 oz BMI 27.5 BP 100/68 Blood Pressure Location Lt brachial Position Sitting Pulse 67 Pulse Source Pulse Oximeter Pulse Oximetry (%) 96 Oxygen Delivery Method Room Air Intake Visit Reasons: hyperlipidemia, depression Intake Note: Patient is here to follow up on HLD, Depression. Micromatic Hone Operator Required: No Thermoscrew Operator: Not Required per policy Accompanied by: Self / Same As Patient Allergies azithromycin [AZITHROMYCIN] Allergy (Unknown, Verified 01/13/25 11:10) HEARTBURN, stomach upset ciprofloxacin [From CIPRO] Allergy (Unknown, Verified 01/13/25 11:10) STOMACH UPSET atorvastatin Adverse Reaction (Intermediate, Verified 01/13/25 11:10) exhaustion, fatigue ezetimibe Adverse Reaction (Intermediate, Verified 01/13/25 11:10) weakness, myalgia rosuvastatin Adverse Reaction (Intermediate, Verified 01/13/25 11:10) weakness, dizziness, myalgia Medication List - Last Reconciled 01/13/25 by Jun Villegas MD bupropion HCl XL 300 mg PO QAM 90 days ftjgyetgiy-ohbiddp-dhalwlcc 50-325-40 mg 1 cap PO Q4H PRN carisoprodol (Soma) 350 mg PO TID PRN cholecalciferol (vitamin D3) 50 mcg PO DAILY 90 days clotrimazole-betamethasone 1-0.05 % 1 appl topical BID PRN diazepam 5 mg PO TID PRN 30 days duloxetine 60 mg PO DAILY 90 days gabapentin 1,600 mg (2 x 800 mg) PO BID 30 days hydroxyzine pamoate 25 mg PO TID PRN 30 days Repatha SureClick (evolocumab) 140 mg subcut Q2W 4 weeks NS solifenacin 5 mg PO DAILY 90 days tamsulosin (Flomax) 0.8 mg (2 x 0.4 mg) PO DAILY 90 days vitamin B complex 1 tab PO DAILY Tobacco use date assessed: 01/13/25 Dental Screening Dental Screen Date: 01/13/25 Did you have a dental visit in the last 12 months?: Yes Did you have a dental problem in the last 6 months where you did not have access to dental care?: No Was dental information given to patient?: Patient has dentist HPI hyperlipidemia, depression HPI Details Patient comes in today for his follow up visit States that he currently feels okay He denies any headaches or dizziness Denies any chest pains, no SOB No nausea/vomiting, no abdominal pain No change in bowel habits noted Need his Hydroxyzine Rx refilled States that he is scheduled to start seeing a prescribing psychiatrist early next month He had his follow up labs done last week - to discuss his results [facility] Medical History Elevated C-reactive protein (CRP) Overweight (BMI 25.0-29.9) Benign prostatic hyperplasia with urinary frequency Lumbar degenerative disc disease Vitamin D deficiency Pure hypercholesterolemia Benign essential hypertension Cellulitis of knee, left Knee injury Surgical History History of colonoscopy History of surgery History of surgery Family History Mother Arthritis Acute cataract Glaucoma Father Heart disease Other Substance use disorder Social History Housing: House Alcohol intake: former Patient Tobacco Use Status: Former Tobacco user e-Cigarette/Vaping Use: Never Used Second Hand Smoke Exposure: No service: No Current occupational status: disabled Cognitive needs: No Hearing needs: No Vision needs: Yes (glasses) Questionnaire PHQ-9 Over the last 2 weeks, how often have you been bothered by any of the following problems? 1. Little interest or pleasure in doing things: nearly every day 2. Feeling down, depressed, or hopeless: nearly every day 3. Trouble falling or staying asleep, or sleeping too much: nearly every day 4. Feeling tired or having little energy: nearly every day 5. Poor appetite or overeating: more than half the days 6. Feeling bad about yourself - or that you are a failure or have let yourself or your family down: nearly every day 7. Trouble concentrating on things, such as reading the newspaper or watching television: nearly every day 8. Moving or speaking so slowly that other people could have noticed. Or the opposite - being so fidgety or restless that you have been moving around a lot more than usual: not at all 9. Thoughts that you would be better off or of hurting yourself in some way: several days Total score: 21 Depression Screening Interpretation: Positive Depression Screening Follow-up: Existing condition and In treatment Depression Screening Done: Yes 30685 - PHQ-9 Billing: Yes Source: Developed by Drs. Justin Loya, Jacqueline Araujo, Anastacio Pinto and colleagues, with an educational kg from [employer]. Thrive Questionnaire Date Thrive assessed: 01/13/25 I am a: Patient What is your living situation today?: I have a place to live, but I am worried about losing it in the future Within the past 12 months, did the food you bought not last and you didn't have the money to get more?: Never true Within the past 12 months, did you worry whether your food would run out before you got money to buy more?: Never true Do you have trouble paying for medicines?: No Do you have trouble getting transportation to medical appointments?: No Do you have trouble paying your heating and electricity bill?: No Do you have trouble taking care of your child, family member or friend?: No Do you have trouble with day-to-day activities such as bathing, preparing meals, shopping, managing finances, etc.?: Yes Are you currently unemployed and looking for a job?: No Are you interested in more education?: No Please select the resources that you would like help with: None Currently or been in a relationship where the following occur: No concerns reported THRIVE Score: 1 AUDIT C Alcohol Use Questionnaire (AUDIT-C) 1. How often do you have a drink containing alcohol?: Never 3. How often do you have six or more drinks on one occasion?: Never Total Score: 0 Score Reviewed/Action Taken: Yes REED-7 AMB Questionnaire REED-7 Date REED - 7 assessed: 01/13/25 Feeling nervous, anxious, or on edge: 3 = Nearly every day Not being able to stop or control worryin = Nearly every day Worrying too much about different things: 3 = Nearly every day Trouble relaxin = Nearly every day Being so restless that it is hard to sit still: 3 = Nearly every day Becoming easily annoyed or irritable: 3 = Nearly every day Feeling afraid as if something awful might happen: 3 = Nearly every day Total REED-7 score (0-4 normal; 5-9 mild; 10-14 moderate; 15-21 severe): 21 Source: Developed by Drs. Justin Loya, Jacqueline Araujo, Anastacio Pinto and colleagues, with an educational kg from [employer]. Review of Systems Const Denies chills, Denies fatigue, Denies fever(s) and Denies headache(s) ENT Denies dysphagia, Denies dizziness, Denies otalgia, Denies headache(s), Denies neck pain, Denies odynophagia and Denies sore throat Card Denies chest pain, Denies palpitations and Denies dyspnea Resp Denies chest congestion, Denies cough and Denies dyspnea GI Denies abdominal pain, Denies constipation, Denies dysphagia, Denies heartburn, Denies diarrhea, Denies nausea, Denies odynophagia and Denies vomiting Denies difficulty urinating, Denies dysuria, Denies nocturia and Denies urinary frequency Musc Reports back pain (over the lower back - chronic) and Denies neck pain Skin/Breast Denies rash Neuro Denies dizziness and Denies headache(s) Psych Reports depression Endo Denies fatigue and Denies palpitations Physical exam (Primary Care) Vital Signs: Last Vital Signs Pulse 67 01/13/25 10:52 BP 100/68 01/13/25 10:52 Pulse Ox 96 01/13/25 10:52 Oxygen Delivery Method Room Air 01/13/25 10:52 BMI result Body Mass Index 27.5 Tobacco/Smoking Status: Tobacco use Status Tobacco use date assessed 01/13/25 01/13/25 10:59 Patient Tobacco Use Status Former Tobacco user 01/13/25 10:53 e-Cigarette/Vaping Use Never Used 01/13/25 10:53 PHQ-9: PHQ-9 Score PHQ-9: Total score 21 01/13/25 10:59 Depression Screening Interpretation: Positive Depression Screening Follow-up: Existing condition and In treatment Thrive Assessment: Date of Thrive Assessment Date Thrive assessed 01/13/25 01/13/25 10:59 Currently or been in a relationship where the following occur: No concerns reported Const General: no acute distress and alert HENMT Ears: TM's normal bilaterally and EAC's normal Throat: Yes posterior oropharynx normal and Yes tonsils normal (no TP congestion) Neck Neck: Yes supple and No lymphadenopathy Thyroid: Thyroid normal Resp Auscultation: clear to auscultation bilaterally, no rales and no wheezes Cardio Rate: regular rate Rhythm: regular rhythm Heart sounds: no murmurs GI Palpation (GI): Soft to palpation and nontender Auscultation: normal bowel sounds General: Yes no CVA tenderness Back/Spine/Pelvis Back: no CVA tenderness Thoracic/Lumbar Spine: lumbar spinal tenderness Skin Rashes: no rashes Extrem General: Yes no clubbing, cyanosis or edema Results Reviewed Results Reviewed: Laboratory Tests 01/03/25 09:52 WBC 10.9 H Hgb 14.1 Hct 42.0 Plt Count 316 Sodium 138 Potassium 4.5 Creatinine 0.92 Estimated GFR > 60 Fasting Glucose 97 Calcium 8.9 AST 28 ALT 73 H Triglycerides 114 Cholesterol 132 LDL Cholesterol, Calc 71 HDL Cholesterol 39 L 25-OH Vitamin D Total 66.7 TSH 0.64 Ur Specific [place] 1.015 Urine Protein Negative Urine Glucose (UA) Negative Urine Blood Negative Urine Nitrite Negative Ur Leukocyte Esterase Negative Coding Level of Care Code Est Pt Level 4 (10632) Complex EM visit Add On G2211 Diagnoses Pure hypercholesterolemia E78.00 Benign essential hypertension I10 Orthostatic dizziness R42 Migraine without status migrainosus, not intractable, unspecified migraine type G43.909 Migraine type: unspecified Status migrainosus presence: without status migrainosus Intractability: not intractable Elevated LFTs R79.89 Vitamin D deficiency E55.9 Degeneration of intervertebral disc of lumbar region with discogenic back pain M51.360 Disc-related pain type: discogenic back pain only Benign prostatic hyperplasia with urinary frequency N40.1; R35.0 Insomnia, unspecified type G47.00 Insomnia type: unspecified Anxiety F41.9 Episode of recurrent major depressive disorder, unspecified depression episode severity F33.9 Depression Type: major depressive disorder Major depression recurrence: recurrent Active/Remission status: currently active Major depression episode severity: unspecified Overweight (BMI 25.0-29.9) E66.3 Additional Codes PHQ-9 - 68989 - PHQ-9 Billing: Yes ([id number]) Assessment & Plan Assessment & Plan (1) Pure hypercholesterolemia: Code(s): E78.00 - Pure hypercholesterolemia, unspecified Category: Medical Plan: Results of his labs done last week reviewed and discussed with patient - his cholesterol levels remain well-controlled on his current Rx Reinforced low cholesterol diet Continue Repatha 140 mg SQ every 2 weeks Will recheck his labs and fasting lipids in 4 months for follow up (2) Benign essential hypertension: Code(s): I10 - Essential (primary) hypertension Category: Medical Plan: IMPROVED - reinforced low sodium diet (goal is systolic BP of 120 mm or less) He is currently on NO MEDS for his BP He was on Losartan 100 mg alternating with 50 mg every other day but he ultimately stopped taking this a few months ago as he felt that the medication was contributing to his symptoms of fatigue, recurrent dizziness and weakness States that all of these improved upon cessation of his Losartan His BP also appears to have improved a lot with his recent weight loss and has NOT needed any Rx for blood pressure so far Patient is reminded to continue monitoring his blood pressure regularly (3) Orthostatic dizziness: Code(s): R42 - Dizziness and giddiness Category: Medical Plan: RESOLVED - patient feels that his symptoms have improved a lot since he stopped taking his Atorvastatin and Losartan, which he believes were responsible for a lot of his symptoms back when he was still on them States that these symptoms are now completely gone and have not recurred since his last visit several months ago Head CT done back in August 2022 came out negative for acute changes Bilateral carotid US done back in November 2022, Holter monitor and echocardiogram done in December 2022 have all come back normal with no significant abnormalities or findings Tilt table testing done at [facility] last year (2022) also came out normal Review of patient's past records show that he has been consistently bradycardic in the past, with EKG done back in 2006 showing bradycardia as the only pertinent finding back then Random cortisol level done back in February 2023 also came back normal He was seen by both neurology and cardiology for further evaluation - neurology recommended continuing observation as his symptoms appear to have improved significantly with cessation of his Losartan and Atorvastatin Follow up with neurology as needed (4) Migraine: Code(s): G43.909 - Migraine, unspecified, not intractable, without status migrainosus Category: Medical Qualifiers: Migraine type: unspecified Status migrainosus presence: without status migrainosus Intractability: not intractable Qualified Code(s): G43.909 - Migraine, unspecified, not intractable, without status migrainosus Plan: Stable Reinforced avoidance of migraine triggers Continue Fioricet 50-325-40 mg PRN Follow up with neurology as scheduled (5) Elevated LFTs: Code(s): R79.89 - Other specified abnormal findings of blood chemistry Category: Medical Plan: Have advised patient that his serum ALT remains elevated on his recent labs - number is mostly the same as a few months ago Patient denies any abdominal symptoms and states that he has not drank any alcohol in years Will continue to monitor his LFTs regularly for now Advised that if his LFTs go up any further over the next few months, then we may need to consider sending him for abdominal US for further evaluation (6) Vitamin D deficiency: Code(s): E55.9 - Vitamin D deficiency, unspecified Category: Medical Plan: Continue Vitamin D3 2000 units QD (7) Lumbar degenerative disc disease: Code(s): M51.36 - Other intervertebral disc degeneration, lumbar region Category: Medical Qualifiers: Disc-related pain type: discogenic back pain only Qualified Code(s): M51.360 - Other intervertebral disc degeneration, lumbar region with discogenic back pain only Plan: Lumbar spine MRI done back on 07/06/2018 revealed (+) lumbar spondylosis that is essentially unchanged from his findings on 10/02/2017 - there were left foraminal disc protrusions abutting the exiting left nerve roots along L3 to S1 Reinforced activity and weight-lifting restrictions States that he has been to pain management in the past; will refer back to pain management if needed Continue Duloxetine 60 mg QD, Gabapentin 1600 mg BID and Carisoprodol 350 mg TID PRN He was on Baclofen before but this was switched over to Carisoprodol at his request as he did not feel that Baclofen helped him at all (8) Benign prostatic hyperplasia with urinary frequency: Code(s): N40.1 - Benign prostatic hyperplasia with lower urinary tract symptoms; R35.0 - Frequency of micturition Category: Medical Plan: Continue Tamsulosin 0.4 mg Q HS He was also started on Oxybutynin ER 5 mg QD to help with his urinary symptoms but he stopped taking it at some point Follow up with urology as scheduled (9) Insomnia: Code(s): G47.00 - Insomnia, unspecified Category: Medical Qualifiers: Insomnia type: unspecified Qualified Code(s): G47.00 - Insomnia, unspecified Plan: Sleep hygiene reinforced Current Rx, including Diazepam, are helping with his sleep at night (10) Anxiety: Code(s): F41.9 - Anxiety disorder, unspecified Category: Medical Plan: Continue Hydroxyzine 25 mg TID PRN (Rx refilled) and Diazepam 5 mg QD PRN He is also on Bupropion XL 300 mg Q AM He is currently still in the process of switching psychiatrist as [facility], the previous psychiatric practice that he was going to, closed down a few months ago - states that he is now scheduled to start seeing his new prescribing psychiatrist early next month (11) Depression: Code(s): F32.A - Depression, unspecified Category: Medical Qualifiers: Depression Type: major depressive disorder Major depression recurrence: recurrent Active/Remission status: currently active Major depression episode severity: unspecified Qualified Code(s): F33.9 - Major depressive disorder, recurrent, unspecified Plan: Continue Bupropion XL 300 mg Q AM, Duloxetine 60 mg QD and Mirtazapine 15 mg Q HS He is still in the process of switching over to a new psychiatrist but states that he is now talking to a therapist again regularly and is now scheduled to start seeing his new prescribing psychiatrist early next month (12) Overweight (BMI 25.0-29.9): Code(s): E66.3 - Overweight Category: Medical Plan: Reinforced diet/exercise as tolerated/lose weight Plan Follow up in 4 months Orders: Orders Comprehensive [place]. Panel Fast 4 Months E78.00 - Pure hypercholesterolemia, unspecified Vitamin D 25-OH Total 4 Months E55.9 - Vitamin D deficiency, unspecified Hemoglobin A1c 4 Months R73.9 - Hyperglycemia, unspecified Complete Blood Count Auto Diff 4 Months D64.9 - Anemia, unspecified Lipid Panel 4 Months E78.00 - Pure hypercholesterolemia, unspecified TSH reflex Free T4 4 Months E78.00 - Pure hypercholesterolemia, unspecified UA CC w/rflx Micro + Cult 4 Months R30.0 - Dysuria Medications: Refilled hydroxyzine pamoate 25 mg PO TID 30 days PRN 90 caps 1RF anxiety
[2025-01-13 10:52] VITALS: BP 100/68; PULSE 67; O2SAT 96; BMI 27.5
== END 2025-01-13 11:20 | disposition home or self-care (01) ==
LOC: HO.HMCH 10:47
PROVIDERS: PCP Internal Medicine; Visit Provider Internal Medicine
DX: E78.00 Pure hypercholesterolemia, unspecified (principal); I10 Essential (primary) hypertension; R42 Dizziness and giddiness; G43.909 Migraine, unspecified, not intractable, without status migrainosus; R79.89 Other specified abnormal findings of blood chemistry; E55.9 Vitamin D deficiency, unspecified; M51.360 Other intervertebral disc degeneration, lumbar region with discogenic back pain only; N40.1 Benign prostatic hyperplasia with lower urinary tract symptoms; R35.0 Frequency of micturition; G47.00 Insomnia, unspecified; F41.9 Anxiety disorder, unspecified; F33.9 Major depressive disorder, recurrent, unspecified; E66.3 Overweight

== ENCOUNTER → 2025-01-13 10:47 | Outpatient (BNVA) | payer MEDICARE, SELFPAY | PROVIDERS: PCP Internal Medicine; Visit Provider Internal Medicine | DX: I10 Essential (primary) hypertension (principal); E78.00 Pure hypercholesterolemia, unspecified; R42 Dizziness and giddiness; G43.909 Migraine, unspecified, not intractable, without status migrainosus; R79.89 Other specified abnormal findings of blood chemistry; E55.9 Vitamin D deficiency, unspecified; M51.360 Other intervertebral disc degeneration, lumbar region with discogenic back pain only; N40.1 Benign prostatic hyperplasia with lower urinary tract symptoms; R35.0 Frequency of micturition; G47.00 Insomnia, unspecified; F41.9 Anxiety disorder, unspecified; F33.9 Major depressive disorder, recurrent, unspecified; E66.3 Overweight; Z68.27 Body mass index [BMI] 27.0-27.9, adult; Z79.899 Other long term (current) drug therapy; Z13.30 Encounter for screening examination for mental health and behavioral disorders, unspecified; Z13.31 Encounter for screening for depression | CPT/HCPCS: 96127; 99212 ==

== ENCOUNTER 2025-03-03 08:42 | Outpatient (AMB) | payer MEDICARE, SELFPAY ==
--- NOTE | 2025-03-03 08:43 | MHC.OFFVIS ---
Intake Visit Reasons: 6m follow up Intake Note: Patient is present for 6M F/U Urology Medication:VESICAR,TAMSULOSIN,VITAMIN B Antibiotic Allergy:AZITHROMYCIN,CIPROFLOXACIN,ATORVASTATIN,ROSUVASTATIN Blood Thinner:NONE Motors Assembler Required: No Allergies azithromycin (AZITHROMYCIN) Allergy (Unknown, Verified 03/03/25 08:44) HEARTBURN, stomach upset ciprofloxacin (From CIPRO) Allergy (Unknown, Verified 03/03/25 08:44) STOMACH UPSET atorvastatin Adverse Reaction (Intermediate, Verified 03/03/25 08:44) exhaustion, fatigue ezetimibe Adverse Reaction (Intermediate, Verified 03/03/25 08:44) weakness, myalgia rosuvastatin Adverse Reaction (Intermediate, Verified 03/03/25 08:44) weakness, dizziness, myalgia HPI Comments Details: Kiana is a pleasant male. He is a patient of Dr. Villegas. He seen for the following urologic conditions - lower urinary tract symptoms - primarily bladder instability Telemedicine Evaluation 15 min Consultation [employer] Maria G Video Six-month follow-up Has continued with Toviaz for bladder urgency Six-month prescription provided Follow-up office [facility] Insurance company has changed his coverage. Switch from Toviaz to solifenacin. Lower urinary tract symptoms Progressive, prior PVR 80 cc, somewhat incomplete bladder emptying Did not think terazosin 5 mg more helpful than tamsulosin Imaging not performed PSA 03/08 1.5 Prior medications tadalafil, oxybuytinin - dry mouth PFSH Medical History Elevated C-reactive protein (CRP) Overweight (BMI 25.0-29.9) Benign prostatic hyperplasia with urinary frequency Lumbar degenerative disc disease Vitamin D deficiency Pure hypercholesterolemia Benign essential hypertension Cellulitis of knee, left Knee injury Surgical History History of colonoscopy History of surgery History of surgery Family History Mother Arthritis Acute cataract Glaucoma Father Heart disease Other Substance use disorder Social History Housing: House Alcohol intake: former Patient Tobacco Use Status: Former Tobacco user e-Cigarette/Vaping Use: Never Used Second Hand Smoke Exposure: No service: No Current occupational status: disabled Cognitive needs: No Hearing needs: No Vision needs: Yes (glasses) Review of Systems Const All systems reviewed & are unremarkable except as noted in HPI and below Reports no additional complaints Resp Reports no additional complaints GI Reports no additional complaints Reports as per HPI Musc Reports no additional complaints Physical Exam Telemedicine evaluation Appropriate responses Regular breathing rate and rhythm HEENT Head: Yes normal to inspection Ears: hearing grossly normal bilaterally Eyes General: appearance normal, both eyes and all related structures Neck Neck: Yes normal visual inspection Chest Chest palpation & inspection: normal inspection of the chest Resp Effort & Inspection: normal respiratory effort and able to speak in complete sentences Telehealth Telehealth Location of provider rendering services: practice address Location of patient: address on file Patient Identification confirmed using: Name, : Yes Telehealth method: voice only Patient verbally consented to treatment: Yes Patient verbally consented to billing insurance company: Yes Patient informed of any privacy concerns related to visit: Yes Assessment & Plan Assessment & Plan (1) Benign prostatic hyperplasia with urinary frequency: Code(s): N40.1 - Benign prostatic hyperplasia with lower urinary tract symptoms; R35.0 - Frequency of micturition Category: Medical (2) Bladder instability: Code(s): N32.89 - Other specified disorders of bladder Category: Medical Plan Six-month follow up Refill prescription Patient Instructions: This note is constructed using voice recognition software. While every effort has been made to ensure accuracy physical biochemist errors may have been included. Imaging studies, laboratory and physical exam results were discussed and reviewed in detail. No major barriers to patient understanding were identified. An opportunity to ask questions regarding the treatment plan was provided. All questions were answered. The patient expressed understanding and agreement with the above treatment plan. The patient is aware they should contact our office by phone for worsening of their current condition or the appearance of new urologic symptoms. Compliance is encouraged with any medications and followup testing that is ordered. It is a privilege to participate in the urologic care of your patient. If you have any questions or concerns regarding treatment for the above conditions, or other urologic issues, please do not hesitate to contact me. The office telephone contact is [phone]. Sincerely, Dr Moi Tellez MD, [facility] - Urology Compassionate Specialist Care for the Genitourinary System Coding Level of Care Code Tele Est Pt Level 3 (22610) Complex EM visit Add On G2211 Diagnoses Benign prostatic hyperplasia with urinary frequency N40.1; R35.0 Bladder instability N32.89
--- OUTSIDE RECORDS SUMMARY | 2025-03-03 08:46 | XMS_ITS | Patient Health Record ---
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 Name Role Phone Samantha(inactive) Won REES Primary Care Provider U Justin Rey Unavailable [phone] Reason For Referral No Information Medications Medication SIG (Take, Route, Fr equency, Duration) Notes Start Date End Date Status Fiorinal 50-325-40 MG 1 capsule as neede d Orally every 4 hrs Active Ambien 10 MG 1 tablet at bedtime as needed Orally Once a day Active Paxil 10 MG 1 tablet in the morn ing Orally Once a day Active Ultram 50 MG 2 tablet as needed Orally TID Active Problems Problem Type SNOMED Code ICD Code Onset Dates Problem Status W/U Status Risk Notes Problem [id number] Encounter for screening for malignant neoplasm of colon (Z12.11) Active confirmed Problem Encounter for screening for malignant neoplasm of rectum (Z12.12) Active confirmed Problem [id number] Preprocedural examination (Z01.818) Active confirmed Plan Of Treatment Future Test Test Name Order Date COLONOSCOPY 09/10/2016 Insurance Providers Payer Name Payer Address Payer Phone Subscriber Number Group Number Insured Name Patient Relationship to Insured Coverage Start Date Coverage End Date [facility] [employer] [facility] [address] [address] [place], [place] [id number] LE HONG Self - patient is the insured Medical (General) History Medical History History ICD Code Denies AK,DM,CVA,Lung disease,renal dise ase Depression Migraines Painful knees and legs Surgical History Surgery Date(Month/Year) Broken left tib/fib--has plates and scre ws 1985 Right ring finger repair 2006
== END 2025-03-03 09:36 | disposition home or self-care (01) ==
LOC: HO.HUSH 08:42
PROVIDERS: PCP Internal Medicine; Visit Provider Urology
DX: N40.1 Benign prostatic hyperplasia with lower urinary tract symptoms (principal); R35.0 Frequency of micturition; N32.89 Other specified disorders of bladder
CPT/HCPCS: 99213; G2211

== ENCOUNTER 2025-05-11 08:05 | Outpatient (REF) | payer MEDICARE, SELFPAY ==
--- OUTSIDE RECORDS SUMMARY | 2025-05-11 08:20 | XMS_ITS | Patient Health Record ---
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 Name Role Phone Samantha(inactive) Won REES Primary Care Provider U darvinsita Justin Burden Unavailable [phone] Reason For Referral No Information Medications Medication [...] Problem Status W/U Status Risk Notes Problem [id number] Encounter for screening for malignant neoplasm of colon (Z12.11) Active confirmed Problem Screening for malignant neoplasm of rectum (004313701) Encounter for screening for malignant neoplasm of rectum (Z12.12) Active confirmed Problem [id number] Preprocedural examination (Z01.818) Active confirmed Plan Of Treatment Future Test Test Name Order Date COLONOSCOPY 09/10/2016 Insurance Providers Payer Name Payer Address Payer Phone Subscriber Number Group Number Insured Name Patient Relationship to Insured Coverage Start Date Coverage End Date [facility] [address] [address] [place], [place] [id number] LE HONG Self - patient is the insured Medical (General) History Medical History History ICD Code Denies MT,DM,CVA,Lung disease,renal dise ase Depression Migraines Painful knees and legs Surgical History Surgery Date(Month/Year) Broken left tib/fib--has plates and scre ws 1985 Right ring finger repair 2007
[2025-05-11 10:17] LABS: MANUAL DIFF FLAG NO
[2025-05-11 10:27] LABS: Hematocrit 38.9 % (42.0-52.0); Hemoglobin 13.4 g/dl (14.0-18.0); Imm Gran Abs Auto 0.03 X10*3/uL (0.00-0.03); Imm Gran Pct Auto 0.4 % (0.0-0.4); Lymphocytes Absolute Auto 1.9 X10*3/uL (1.2-4.9); Mean Corpuscular HGB Conc 34.4 g/dl (31.0-36.0); Mean Corpuscular Hemoglobin 29.8 pg (27.0-33.0); Mean Corpuscular Volume 86.4 fL (80.0-98.0); NRBC Abs Auto 0.000 X10*3/uL (0.0-0.012); NRBC Pct Auto 0.0 /100WBC (0.0-0.2); Platelet Count 276 X10*3/uL (160-400); Red Blood Count 4.50 X10*6/uL (4.60-5.80); White Blood Count 8.2 X10*3/uL (4.8-10.8)
[2025-05-11 10:30] LABS: Appearance Urine Clear; Glucose Urine UA Negative (Negative); PH 7.5 (5.0-9.0); Specific Gravity - Urine 1.020 (1.005-1.025)
[2025-05-11 10:46] LABS: Hemoglobin A1C 128.1937 umol/L; Total Hemoglobin (HGBA1C) 3432.0495 umol/L
[2025-05-11 11:18] LABS: Alanine Aminotransferase 108 U/L (0-40); Albumin Level 4.0 g/dL (3.5-5.0); Alkaline Phosphatase 79 U/L (39-117); Anion Gap 8 (12-20); Aspartate Amino Transferase 64 U/L (5-37); Blood Urea Nitrogen 15 mg/dL (9-16); Calcium 8.7 mg/dL (8.4-10.2); Carbon Dioxide 25 mmol/L (22-29); Chloride 110 mmol/L (96-108); Cholesterol 115 mg/dL (<200); Estimated Glomerular Filt Rate > 60; HDL Cholesterol 36 mg/dL (>40); Potassium 4.4 mmol/L (3.3-5.1); Sodium 139 mmol/L (135-145); Total Protein 6.9 g/dL (6.5-8.0); Triglycerides 94 mg/dL (<150)
== END 2025-05-11 08:06 | disposition home or self-care (01) ==
LOC: HO.HMGCLDS 08:05
PROVIDERS: PCP Internal Medicine; Visit Provider Internal Medicine
DX: R30.0 Dysuria (principal); E55.9 Vitamin D deficiency, unspecified; D64.9 Anemia, unspecified; E78.00 Pure hypercholesterolemia, unspecified; R73.9 Hyperglycemia, unspecified
CPT/HCPCS: 36415; 80053; 80061; 81003; 82306; 83036; 84443; 85025

== ENCOUNTER 2025-05-19 10:20 | Outpatient (AMB) | payer MEDICARE, SELFPAY ==
[2025-05-19 10:25] VITALS: BP 100/70; PULSE 71; O2SAT 96; BMI 26.5
--- NOTE | 2025-05-19 10:25 | A.OFFPC_ITS ---
Vital Signs 05/19/25 10:25 Height 6 ft Weight 195 lb 2 oz BMI 26.5 BP 100/70 Blood Pressure Location Lt brachial Position Sitting Pulse 71 Pulse Source Pulse Oximeter Pulse Oximetry (%) 96 Oxygen Delivery Method Room Air Intake Visit Reasons: 4 month Intake Note: Patient is here to follow up on HLD, Depression. Public Health Service Officer Required: No Sandblast Operator: Not Required per policy Accompanied by: Self / Same As Patient Allergies azithromycin (AZITHROMYCIN) Allergy (Unknown, Verified 05/19/25 11:07) HEARTBURN, stomach upset ciprofloxacin (From CIPRO) Allergy (Unknown, Verified 05/19/25 11:07) STOMACH UPSET atorvastatin Adverse Reaction (Intermediate, Verified 05/19/25 11:07) exhaustion, fatigue ezetimibe Adverse Reaction (Intermediate, Verified 05/19/25 11:07) weakness, myalgia rosuvastatin Adverse Reaction (Intermediate, Verified 05/19/25 11:07) weakness, dizziness, myalgia Medication List - Last Reconciled 05/19/25 by Jun Villegas MD bupropion HCl XL 300 mg PO QAM 90 days qtuwwavgeh-wxvpkwd-hvmiygkw 50-325-40 mg 1 cap PO Q4H PRN cariprazine (Vraylar) 1.5 mg PO DAILY carisoprodol (Soma) 350 mg PO TID PRN cholecalciferol (vitamin D3) 50 mcg PO DAILY 90 days clotrimazole-betamethasone 1-0.05 % 1 appl topical BID PRN diazepam 5 mg PO TID PRN 30 days duloxetine 60 mg PO DAILY 90 days gabapentin 1,600 mg (2 x 800 mg) PO BID 30 days hydroxyzine pamoate 25 mg PO TID PRN 30 days Repatha SureClick (evolocumab) 140 mg subcut Q2W 4 weeks NS solifenacin 5 mg PO DAILY 90 days tamsulosin (Flomax) 0.8 mg (2 x 0.4 mg) PO DAILY 90 days vitamin B complex 1 tab PO DAILY Tobacco use date assessed: 05/19/25 Dental Screening Dental Screen Date: 05/19/25 Did you have a dental visit in the last 12 months?: Yes Did you have a dental problem in the last 6 months where you did not have access to dental care?: No Was dental information given to patient?: Patient has dentist HPI 4 month HPI Details Patient comes in today for his follow up visit States that he feels okay He denies any headaches or dizziness Denies any chest pains, no SOB No nausea/vomiting, no abdominal pain No change in bowel habits noted States that he is now seeing a prescribing psychiatrist for his mood disorder He had his follow up labs done last week - to discuss his results [facility] Medical History Elevated C-reactive protein (CRP) Overweight (BMI 25.0-29.9) Benign prostatic hyperplasia with urinary frequency Lumbar degenerative disc disease Vitamin D deficiency Pure hypercholesterolemia Benign essential hypertension Cellulitis of knee, left Knee injury Surgical History History of colonoscopy History of surgery History of surgery Family History Mother Arthritis Acute cataract Glaucoma Father Heart disease Other Substance use disorder Social History Housing: House Alcohol intake: former Patient Tobacco Use Status: Former Tobacco user e-Cigarette/Vaping Use: Never Used Second Hand Smoke Exposure: No service: No Current occupational status: disabled Cognitive needs: No Hearing needs: No Vision needs: Yes (glasses) Questionnaire Thrive Questionnaire Date Thrive assessed: 01/13/25 I am a: Patient What is your living situation today?: I have a place to live, but I am worried about losing it in the future Within the past 12 months, did the food you bought not last and you didn't have the money to get more?: Never true Within the past 12 months, did you worry whether your food would run out before you got money to buy more?: Never true Do you have trouble paying for medicines?: No Do you have trouble getting transportation to medical appointments?: No Do you have trouble paying your heating and electricity bill?: No Do you have trouble taking care of your child, family member or friend?: No Do you have trouble with day-to-day activities such as bathing, preparing meals, shopping, managing finances, etc.?: Yes Are you currently unemployed and looking for a job?: No Are you interested in more education?: No Please select the resources that you would like help with: None Currently or been in a relationship where the following occur: No concerns reported THRIVE Score: 1 AUDIT C Alcohol Use Questionnaire (AUDIT-C) 1. How often do you have a drink containing alcohol?: Never 3. How often do you have six or more drinks on one occasion?: Never Total Score: 0 Score Reviewed/Action Taken: Yes REED-7 AMB Questionnaire REED-7 Date REED - 7 assessed: 01/13/25 Source: Developed by Drs. Justin Loya, Jacqueline Araujo, Anastacio Pinto and colleagues, with an educational kg from [employer]. Review of Systems Const Denies chills, Denies fatigue, Denies fever(s) and Denies headache(s) ENT Denies dysphagia, Denies dizziness, Denies otalgia, Denies headache(s), Denies neck pain, Denies odynophagia and Denies sore throat Card Denies chest pain, Denies palpitations and Denies dyspnea Resp Denies chest congestion, Denies cough and Denies dyspnea GI Denies abdominal pain, Denies constipation, Denies dysphagia, Denies heartburn, Denies diarrhea, Denies nausea, Denies odynophagia and Denies vomiting Denies difficulty urinating, Denies dysuria, Denies nocturia and Denies urinary frequency Musc Reports back pain (over the lower back - chronic) and Denies neck pain Skin/Breast Denies rash Neuro Denies dizziness and Denies headache(s) Psych Reports depression Endo Denies fatigue and Denies palpitations Physical exam (Primary Care) Vital Signs: Last Vital Signs Pulse 71 05/19/25 10:25 BP 100/70 05/19/25 10:25 Pulse Ox 96 05/19/25 10:25 Oxygen Delivery Method Room Air 05/19/25 10:25 BMI result Body Mass Index 26.5 Tobacco/Smoking Status: Tobacco use Status Tobacco use date assessed 05/19/25 05/19/25 10:27 Patient Tobacco Use Status Former Tobacco user 05/19/25 10:27 e-Cigarette/Vaping Use Never Used 05/19/25 10:27 Thrive Assessment: Date of Thrive Assessment Date Thrive assessed 01/13/25 05/19/25 10:27 Currently or been in a relationship where the following occur: No concerns reported Const General: no acute distress and alert HENMT Ears: TM's normal bilaterally and EAC's normal Throat: Yes posterior oropharynx normal and Yes tonsils normal (no TP congestion) Neck Neck: Yes supple and No lymphadenopathy Thyroid: Thyroid normal Resp Auscultation: clear to auscultation bilaterally, no rales and no wheezes Cardio Rate: regular rate Rhythm: regular rhythm Heart sounds: no murmurs GI Palpation (GI): Soft to palpation and nontender Auscultation: normal bowel sounds General: Yes no CVA tenderness Back/Spine/Pelvis Back: no CVA tenderness Thoracic/Lumbar Spine: lumbar spinal tenderness Skin Rashes: no rashes Extrem General: Yes no clubbing, cyanosis or edema Results Reviewed Results Reviewed: Laboratory Tests 05/11/25 05/11/25 08:20 08:25 WBC 8.2 Hgb 13.4 L Hct 38.9 L Plt Count 276 Sodium 139 Potassium 4.4 Creatinine 0.93 Estimated GFR > 60 Fasting Glucose 102 H Hemoglobin A1c % 5.6 Calcium 8.7 AST 64 H ALT 108 H Triglycerides 94 Cholesterol 115 LDL Cholesterol, Calc 61 HDL Cholesterol 36 L 25-OH Vitamin D Total 60.8 TSH 0.72 Ur Specific [place] 1.020 Urine Protein Negative Urine Glucose (UA) Negative Urine Blood Negative Urine Nitrite Negative Ur Leukocyte Esterase Negative Coding Level of Care Code Est Pt Level 4 (69427) Diagnoses Pure hypercholesterolemia E78.00 Benign essential hypertension I10 Elevated LFTs R79.89 Orthostatic dizziness R42 Migraine without status migrainosus, not intractable, unspecified migraine type G43.909 Migraine type: unspecified Status migrainosus presence: without status migrainosus Intractability: not intractable Vitamin D deficiency E55.9 Degeneration of intervertebral disc of lumbar region with discogenic back pain M51.360 Disc-related pain type: discogenic back pain only Benign prostatic hyperplasia with urinary frequency N40.1; R35.0 Insomnia, unspecified type G47.00 Insomnia type: unspecified Anxiety F41.9 Episode of recurrent major depressive disorder, unspecified depression episode severity F33.9 Depression Type: major depressive disorder Major depression recurrence: recurrent Active/Remission status: currently active Major depression episode severity: unspecified Overweight (BMI 25.0-29.9) E66.3 Assessment & Plan Assessment & Plan (1) Pure hypercholesterolemia: Code(s): E78.00 - Pure hypercholesterolemia, unspecified Category: Medical Plan: Results of his labs done last week reviewed and discussed with patient - his cholesterol levels remain well-controlled on his current Rx Reinforced low cholesterol diet Continue Repatha 140 mg SQ every 2 weeks Will recheck his labs and fasting lipids in 4 months for follow up (2) Benign essential hypertension: Code(s): I10 - Essential (primary) hypertension Category: Medical Plan: IMPROVED - reinforced low sodium diet (goal is systolic BP of 120 mm or less) He is currently on NO MEDS for his BP He was on Losartan 100 mg alternating with 50 mg every other day but he ultimately stopped taking this a few months ago as he felt that the medication was contributing to his symptoms of fatigue, recurrent dizziness and weakness States that all of these improved upon cessation of his Losartan His BP also appears to have improved a lot with his recent weight loss and has NOT needed any Rx for blood pressure so far Patient is reminded to continue monitoring his blood pressure regularly (3) Elevated LFTs: Code(s): R79.89 - Other specified abnormal findings of blood chemistry Category: Medical Plan: Have advised patient that his LFTs have increased significantly from previous on his recent labs Patient denies any abdominal symptoms and states that he has not drank any alcohol in over 25 years Will now send patient for abdominal US for further evaluation Will continue to monitor patient's LFTs regularly (4) Orthostatic dizziness: Code(s): R42 - Dizziness and giddiness Category: Medical Plan: RESOLVED - patient feels that his symptoms have improved a lot since he stopped taking his Atorvastatin and Losartan, which he believes were responsible for a lot of his symptoms back when he was still on them States that these symptoms are now completely gone and have not recurred since his last visit several months ago Head CT done back in August 2022 came out negative for acute changes Bilateral carotid US done back in November 2022, Holter monitor and echocardiogram done in December 2022 have all come back normal with no significant abnormalities or findings Tilt table testing done at [facility] last year (2022) also came out normal Review of patient's past records show that he has been consistently bradycardic in the past, with EKG done back in 2006 showing bradycardia as the only pertinent finding back then Random cortisol level done back in February 2023 also came back normal He was seen by both neurology and cardiology for further evaluation - neurology recommended continuing observation as his symptoms appear to have improved significantly with cessation of his Losartan and Atorvastatin Follow up with neurology as needed (5) Migraine: Code(s): G43.909 - Migraine, unspecified, not intractable, without status migrainosus Category: Medical Qualifiers: Migraine type: unspecified Status migrainosus presence: without status migrainosus Intractability: not intractable Qualified Code(s): G43.909 - Migraine, unspecified, not intractable, without status migrainosus Plan: Stable Reinforced avoidance of migraine triggers Continue Fioricet 50-325-40 mg PRN Follow up with neurology as scheduled (6) Vitamin D deficiency: Code(s): E55.9 - Vitamin D deficiency, unspecified Category: Medical Plan: Continue Vitamin D3 2000 units QD (7) Lumbar degenerative disc disease: Code(s): M51.36 - Other intervertebral disc degeneration, lumbar region Category: Medical Qualifiers: Disc-related pain type: discogenic back pain only Qualified Code(s): M51.360 - Other intervertebral disc degeneration, lumbar region with discogenic back pain only Plan: Lumbar spine MRI done back on 07/06/2018 revealed (+) lumbar spondylosis that is essentially unchanged from his findings on 10/02/2017 - there were left foraminal disc protrusions abutting the exiting left nerve roots along L3 to S1 Reinforced activity and weight-lifting restrictions States that he has been to pain management in the past; will refer back to pain management if needed Continue Duloxetine 60 mg QD, Gabapentin 1600 mg BID and Carisoprodol 350 mg TID PRN He was on Baclofen before but this was switched over to Carisoprodol at his request as he did not feel that Baclofen helped him at all (8) Benign prostatic hyperplasia with urinary frequency: Code(s): N40.1 - Benign prostatic hyperplasia with lower urinary tract symptoms; R35.0 - Frequency of micturition Category: Medical Plan: Continue Tamsulosin 0.8 mg Q HS He was also started on Oxybutynin ER 5 mg QD to help with his urinary symptoms but he stopped taking it at some point Follow up with urology as scheduled (9) Insomnia: Code(s): G47.00 - Insomnia, unspecified Category: Medical Qualifiers: Insomnia type: unspecified Qualified Code(s): G47.00 - Insomnia, unspecified Plan: Sleep hygiene reinforced Current Rx, including Diazepam, are helping with his sleep at night (10) Anxiety: Code(s): F41.9 - Anxiety disorder, unspecified Category: Medical Plan: Continue Hydroxyzine 25 mg TID PRN (Rx refilled) and Diazepam 5 mg QD PRN He is also on Bupropion XL 300 mg Q AM He is currently still in the process of switching psychiatrist as Jesse Bhagat, the previous psychiatric practice that he was going to, closed down a few months ago - states that he is now scheduled to start seeing his new prescribing psychiatrist early next month (11) Depression: Code(s): F32.A - Depression, unspecified Category: Medical Qualifiers: Depression Type: major depressive disorder Major depression recurrence: recurrent Active/Remission status: currently active Major depression episode severity: unspecified Qualified Code(s): F33.9 - Major depressive disorder, recurrent, unspecified Plan: Continue Bupropion XL 300 mg Q AM, Duloxetine 60 mg QD and Mirtazapine 15 mg Q HS He is now seeing a new prescribing psychiatrist and he is still talking to a therapist regularly (12) Overweight (BMI 25.0-29.9): Code(s): E66.3 - Overweight Category: Medical Plan: Reinforced diet/exercise as tolerated/lose weight Plan Follow up in 4 months Orders: Orders US abdomen complete Today R79.89 - Other specified abnormal findings of blood chemistry Comprehensive [place]. Panel Fast 4 Months E78.00 - Pure hypercholesterolemia, unspecified TSH reflex Free T4 4 Months E78.00 - Pure hypercholesterolemia, unspecified Complete Blood Count Auto Diff 4 Months D64.9 - Anemia, unspecified Lipid Panel 4 Months E78.00 - Pure hypercholesterolemia, unspecified Liver Fibrosis Pnl 4 Months R79.89 - Other specified abnormal findings of blood chemistry
--- OUTSIDE RECORDS SUMMARY | 2025-05-19 11:13 | XMS_ITS | Patient Health Record ---
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 Name Role Phone Samantha(inactive) Won REES Primary Care Provider U darvinsita Justin Burden Unavailable [phone] Reason For Referral No Information Medications Medication [...] Problem Status W/U Status Risk Notes Problem [id number] Encounter for screening for malignant neoplasm of colon (Z12.11) Active confirmed Problem Screening for malignant neoplasm of rectum (923439835) Encounter for screening for malignant neoplasm of rectum (Z12.12) Active confirmed Problem [id number] Preprocedural examination (Z01.818) Active confirmed Plan Of Treatment Future Test Test Name Order Date COLONOSCOPY 09/10/2016 Insurance Providers Payer Name Payer Address Payer Phone Subscriber Number Group Number Insured Name Patient Relationship to Insured Coverage Start Date Coverage End Date [facility] [address] [address] [place], [place] [id number] LE HONG Self - patient is the insured Medical (General) History Medical History History ICD Code Denies MS,DM,CVA,Lung disease,renal dise ase Depression Migraines Painful knees and legs Surgical History Surgery Date(Month/Year) Broken left tib/fib--has plates and scre ws 1985 Right ring finger repair 2007
== END 2025-05-19 11:17 | disposition home or self-care (01) ==
LOC: HO.HMCH 10:21
PROVIDERS: PCP Internal Medicine; Visit Provider Internal Medicine
DX: E78.00 Pure hypercholesterolemia, unspecified (principal); I10 Essential (primary) hypertension; R79.89 Other specified abnormal findings of blood chemistry; R42 Dizziness and giddiness; G43.909 Migraine, unspecified, not intractable, without status migrainosus; E55.9 Vitamin D deficiency, unspecified; M51.360 Other intervertebral disc degeneration, lumbar region with discogenic back pain only; N40.1 Benign prostatic hyperplasia with lower urinary tract symptoms; R35.0 Frequency of micturition; G47.00 Insomnia, unspecified; F41.9 Anxiety disorder, unspecified; F33.9 Major depressive disorder, recurrent, unspecified; E66.3 Overweight

== ENCOUNTER → 2025-05-19 10:20 | Outpatient (BNVA) | payer MEDICARE, SELFPAY | PROVIDERS: PCP Internal Medicine; Visit Provider Internal Medicine | DX: I10 Essential (primary) hypertension (principal); E78.00 Pure hypercholesterolemia, unspecified; R79.89 Other specified abnormal findings of blood chemistry; R42 Dizziness and giddiness; G43.909 Migraine, unspecified, not intractable, without status migrainosus; E55.9 Vitamin D deficiency, unspecified; M51.360 Other intervertebral disc degeneration, lumbar region with discogenic back pain only; N40.1 Benign prostatic hyperplasia with lower urinary tract symptoms; R35.0 Frequency of micturition; G47.00 Insomnia, unspecified; F41.9 Anxiety disorder, unspecified; F33.9 Major depressive disorder, recurrent, unspecified; E66.3 Overweight; D64.9 Anemia, unspecified; Z68.26 Body mass index [BMI] 26.0-26.9, adult | CPT/HCPCS: 99212 ==

== ENCOUNTER 2025-06-23 11:53 | Outpatient (REF) | payer MEDICARE, SELFPAY ==
--- NOTE | ~2025-06-23 | XR_ITS ---
EXAMINATION: XR ANKLE, LEFT CLINICAL INFORMATION: M25.572 - Pain in left ankle and joints of left foot COMPARISON: None available. TECHNIQUE: AP, lateral, and mortise views of the left ankle. FINDINGS: Retrograde screw positioned in the medial malleolus. Status post internal fixation of a distal fibular shaft fracture, with plate and screws. Intact hardware. No suspicious perihardware lucency. Chronic appearing dysmorphic appearance of the fracture site. Moderate talocrural joint arthritis. No talar dome OCD seen. Dorsal spurring of the talar neck, talar head. No acute fracture, dislocation or suspicious bony lesion is seen.. No erosions. No abnormal soft tissue calcification. Small plantar calcaneal spur. Mild dorsal ankle soft tissue swelling. XR/XR ankle LT min 3V IMPRESSION: Postoperative changes in the distal fibula. No findings suggest hardware complications.. No radiographic evidence of acute fracture or dislocation. Moderate talocrural joint arthritis. Additional degenerative changes as detailed above. Electronically signed by: Kendell Nam MD 06/23/2025 12:41 PM [facility]
== END 2025-06-23 11:54 | disposition home or self-care (01) ==
LOC: HO.HMGCX 11:53
PROVIDERS: PCP Internal Medicine; Visit Provider Nurse Practitioner Family
DX: M25.572 Pain in left ankle and joints of left foot (principal)
CPT/HCPCS: 73610; 99212

== ENCOUNTER 2025-06-23 11:53 | Outpatient (AMB) | payer MEDICARE, SELFPAY ==
[2025-06-23 11:58] VITALS: BP 104/66; PULSE 60; TEMP 36.8; O2SAT 98; BMI 27.8
--- NOTE | 2025-06-23 11:58 | AM.OFFWIN_ITS ---
Intake Vital Signs 06/23/25 11:58 Height 6 ft Weight 205 lb BMI 27.8 BP 104/66 Blood Pressure Location Lt brachial Position Sitting Pulse 60 Pulse Source Pulse Oximeter Temp 98.2 F Temp Source Oral Pulse Oximetry (%) 98 Oxygen Delivery Method Room Air Intake Visit Reasons: EP-lt ankle pain Intake Note: pt presents with LT ankle pain for a few days without injury. h/o tib/fib fx from [address] Patient Tobacco Use Status: Former Tobacco user Allergies azithromycin (AZITHROMYCIN) Allergy (Unknown, Verified 06/23/25 12:06) HEARTBURN, stomach upset ciprofloxacin (From CIPRO) Allergy (Unknown, Verified 06/23/25 12:06) STOMACH UPSET atorvastatin Adverse Reaction (Intermediate, Verified 06/23/25 12:06) exhaustion, fatigue ezetimibe Adverse Reaction (Intermediate, Verified 06/23/25 12:06) weakness, myalgia rosuvastatin Adverse Reaction (Intermediate, Verified 06/23/25 12:06) weakness, dizziness, myalgia Do you need a note to return to daycare/school/sports/work: No HPI EP-lt ankle pain HPI Details This is a 60-year-old male patient who presents to the walk-in clinic today with left ankle pain. He has a history of a tib/fib fracture in 1985, which required hardware, done at [facility]. He states he has done well since this without problems, however over the last couple of weeks, has developed a left anterior ankle pain, starting proximal to his medial malleolus, and wrapping circumferentially across anterior ankle. Pain is worse with ambulation. He denies any re-injury or inciting event to this pain. COUNTS INCLUDE 234 BEDS AT THE [facility] Medical History Elevated C-reactive protein (CRP) Overweight (BMI 25.0-29.9) Benign prostatic hyperplasia with urinary frequency Lumbar degenerative disc disease Vitamin D deficiency Pure hypercholesterolemia Benign essential hypertension Cellulitis of knee, left Knee injury Surgical History History of colonoscopy History of surgery History of surgery Family History Mother Arthritis Acute cataract Glaucoma Father Heart disease Other Substance use disorder Social History Housing: House Alcohol intake: former Patient Tobacco Use Status: Former Tobacco user e-Cigarette/Vaping Use: Never Used Second Hand Smoke Exposure: No service: No Current occupational status: disabled Cognitive needs: No Hearing needs: No Vision needs: Yes (glasses) Review of Systems Const All systems reviewed & are unremarkable except as noted in HPI and below Physical Exam Const General: cooperative, healthy appearing, comfortable and no acute distress Limitations: no limitations Resp Effort & Inspection: normal respiratory effort Skin General skin exam: no rashes or lesions noted Extrem Other: left ankle - well-healed scars. Pain with dorsiflexion of ankle, primarily at medial ankle. No swelling, bruising, warmth, edema, or erythema. No crepitus. No ttp. +PP Left lower extremity: ankle Psych Appearance: grossly normal Mental Status: mental status grossly normal Speech and movement: Normal speech and movement present Assessment & Plan Assessment & Plan (1) Left ankle pain: Code(s): M25.572 - Pain in left ankle and joints of left foot Qualifiers: Chronicity: acute Qualified Code(s): M25.572 - Pain in left ankle and joints of left foot Plan: Patient has new onset of left ankle pain without any reinjury - XR done in the office and hardware present s/p tib/fib fx/repair many years ago. Patient has pain at site of screw, per imaging. I am going to refer him to [facility] [place] for [place]. We discussed conservative measures in the meantime, including rest, ice, elevation, wrapping, and NSAIDs as needed. Patient verbalizes understanding and agrees to plan. XR: Postoperative changes in the distal fibula. No findings suggest hardware complications. No radiographic evidence of acute fracture or dislocation. Moderate talocrural joint arthritis. Orders: Referrals Orthopedics Referral M25.572 - Pain in left ankle and joints of left foot Coding Level of Care Code Est Pt Level 4 (27243) Diagnoses Acute left ankle pain M25.572 Chronicity: acute
--- OUTSIDE RECORDS SUMMARY | 2025-06-23 14:17 | XMS_ITS | Patient Health Record ---
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 Name Role Phone Samantha(inactive) Won REES Primary Care Provider U madina BurdenJustin Unavailable [phone] Reason For Referral No Information Medications Medication [...] Problem Status W/U Status Risk Notes Problem Screening for malignant neoplasm of colon (582281625) Encounter for screening for malignant neoplasm of colon (Z12.11) Active confirmed Problem Screening for malignant neoplasm of rectum (146040654) Encounter for screening for malignant neoplasm of rectum (Z12.12) Active confirmed Problem Preprocedural examination (996616506221927) Preprocedural examination (Z01.818) Active confirmed Plan Of Treatment Future Test Test Name Order Date COLONOSCOPY 09/10/2016 Insurance Providers Payer Name Payer Address Payer Phone Subscriber Number Group Number Insured Name Patient Relationship to Insured Coverage Start Date Coverage End Date [facility] [email or web address] [facility] [address] [address] [place], [place] [id number] LE HONG Self - patient is the insured Medical (General) History Medical History History ICD Code Denies [place],DM,CVA,Lung disease,renal dise ase Depression Migraines Painful knees and legs Surgical History Surgery Date(Month/Year) Broken left tib/fib--has plates and scre ws 1985 Right ring finger repair 2006
== END 2025-06-23 12:43 | disposition home or self-care (01) ==
PROVIDERS: PCP Internal Medicine; Visit Provider Nurse Practitioner Family
DX: M25.572 Pain in left ankle and joints of left foot (principal)

== ENCOUNTER → 2025-06-23 12:22 | Outpatient (BNV) | payer MEDICARE, SELFPAY | PROVIDERS: PCP Internal Medicine; Visit Provider Radiology Diagnostic Ultrasound | DX: M19.072 Primary osteoarthritis, left ankle and foot (principal) | CPT/HCPCS: 73610 ==